=== PATIENT | female | born 1935 | race Caucasian/White ===

== ENCOUNTER 2016-09-10 13:14 | Emergency (ER) | payer SELFPAY ==
[~2016-09-10] VITALS: Ht 165.1 cm; Wt 63.5 kg
[~2016-09-10 13:14] MED LIST: ALPR1TAB7 PO; ATOR40TA PO; LOPE1TAB46 PO; LORA-259 PO
[2016-09-10] MEDS ORDERED: POTASSIUM (13:25)
[2016-09-10] MEDS ORDERED: ZOFRAN (13:25)
[2016-09-10] MEDS ORDERED: LIPITOR (13:25)
[2016-09-10] MEDS ORDERED: PHENERGAN (13:25)
--- NOTE | 2016-09-10 13:40 | NUR ---
PT IS IN ROOM #2B. DR CEDILLO EVALUATED THE PT.
--- NOTE | 2016-09-10 13:52 | NUR ---
PT WAS D/C TO HOME AFTER DR CEDILLO EVALUATION. D/C INSTRUCTIONS GIVEN TO THE PT.
[2016-09-10 13:54] VITALS: BP 140/75
== END 2016-09-10 14:15 | disposition home or self-care (01) ==
LOC: EDBD → MERGE 13:14 → ER 13:14
DX: K40.90 Unilateral inguinal hernia, without obstruction or gangrene, not specified as recurrent (principal)
CPT/HCPCS: A4663

== ENCOUNTER 2017-12-29 09:22 | Emergency (ER) | payer MEDICARE, BC ==
[~2017-12-29] VITALS: Ht 154.9 cm; Wt 68.0 kg
[~2017-12-29 09:22] MED LIST changes: +LIPITOR; +PHENERGAN; +POTASSIUM; +ZOFRAN
[2017-12-29] MEDS ORDERED: PANT40TA2 PO (09:37)
[2017-12-29] MEDS ORDERED: METO-295 PO (09:37)
--- NOTE | 2017-12-29 09:37 | NUR ---
82 years old female walking to er with inpatient care manager rn c/o abdominal pain denies nausea vomiting diarrhea.
[2017-12-29] MEDS ORDERED: ONDANSETRON 4 MG/2 ML VIAL ONE (09:53)
[2017-12-29] MEDS ORDERED: ONDANSETRON 4 MG/2 ML VIAL IM ONE (10:00)
== END 2017-12-29 10:15 | disposition home or self-care (01) ==
LOC: ER 09:22
DX: R10.13 Epigastric pain (principal); Z87.11 Personal history of peptic ulcer disease
CPT/HCPCS: 96372; 99283; J2405; A4663

== ENCOUNTER 2018-01-09 07:27 | Emergency (ER) | payer MEDICARE, BC ==
[~2018-01-09] VITALS: Ht 157.5 cm; Wt 59.0 kg
[~2018-01-09 07:27] MED LIST changes: +METO-295 PO; +PANT40TA2 PO; -POTASSIUM; +POTASSIUM PO; -ZOFRAN
[2018-01-09] MEDS ORDERED: IV NORMAL SALINE 1000 ML BAG IV ONE (07:45)
[2018-01-09] MEDS ORDERED: ONDANSETRON 4 MG/2 ML VIAL IV ONE (07:45)
[2018-01-09] MEDS ORDERED: ONDANSETRON 4 MG/2 ML VIAL ONE (07:51)
[2018-01-09 07:53] LABS: BASOPHILS # (AUTO) 0.1 K/uL (0.0-8.0); BASOPHILS % (AUTO) 0.8 % (0.0-2.0); EOSINOPHILS # (AUTO) 0.1 K/uL (0.0-0.7); EOSINOPHILS % (AUTO) 2.2 % (0.0-7.0); HEMATOCRIT 46.2 % (31.2-41.9); HEMOGLOBIN 15.7 g/dL (10.9-14.3); LYMPHOCYTES # (AUTO) 1.8 K/uL (20.0-40.0); LYMPHOCYTES % (AUTO) 27.2 % (20.5-51.5); MEAN CORPUSCULAR HEMOGLOBIN 29.7 uug (24.7-32.8); MEAN CORPUSCULAR HGB CONC 34 g/dL (32.3-35.6); MEAN CORPUSCULAR VOLUME 87.7 fL (75.5-95.3); MONOCYTES # (AUTO) 0.8 K/uL (2.0-10.0); MONOCYTES % (AUTO) 12.7 % (0.0-11.0); NEUTROPHILS # (AUTO) 3.7 K/uL (1.8-8.9); NEUTROPHILS % (AUTO) 57.1 % (38.5-71.5); PLATELET COUNT (AUTO) 246 K/uL (179-408); RED BLOOD CELL COUNT(AUTO) 5.27 MIL/uL (3.63-4.92); WHITE BLOOD COUNT (AUTO) 6.5 K/uL (3.8-11.8)
[2018-01-09] MEDS ORDERED: METOCLOPRAMIDE HCL 10 MG/2 ML VIAL ONE ×2 (07:53→09:29)
[2018-01-09] MEDS ORDERED: diphenhydrAMINE 50 MG/1 ML VIAL ONE ×2 (07:53→09:29)
[2018-01-09] MEDS ORDERED: diphenhydrAMINE 50 MG/1 ML VIAL IV ONE ×2 (08:00→09:45)
[2018-01-09] MEDS ORDERED: METOCLOPRAMIDE HCL 10 MG/2 ML VIAL IV ONE ×2 (08:00→09:45)
[2018-01-09 08:09] LABS: ALANINE AMINOTRANSFERASE 33 U/L (14-59); ALKALINE PHOSPHATASE 96 U/L (50-136); ASPARTATE AMINOTRANSFERASE 14 U/L (15-37); BILIRUBIN,DIRECT 0.2 mg/dL (0.0-0.2); BILIRUBIN,TOTAL 0.7 mg/dL (0.2-1.0); CARBON DIOXIDE 27 mmol/L (21-32); CHLORIDE 103 mmol/L (98-107); CREATININE 0.7 mg/dL (0.6-1.3); GLUCOSE 125 mg/dL (74-106); LIPASE 198 U/L (73-393); TOTAL PROTEIN, SERUM 7.2 g/dL (6.4-8.2); UREA NITROGEN, BLOOD 10 mg/dL (7-18)
[2018-01-09 08:12] LABS: POTASSIUM 2.6 mmol/L (3.5-5.1)
[2018-01-09] MEDS ORDERED: POTASSIUM BICARBONATE/CIT AC 25 MEQ TABLET.EFF PO ONE (08:15)
[2018-01-09] MEDS ORDERED: POTASSIUM CHLORIDE 50 ML IV SCH (08:15)
[2018-01-09] MEDS ORDERED: POTASSIUM BICARBONATE/CIT AC 25 MEQ TABLET.EFF ONE (08:37)
[2018-01-09] MEDS ORDERED: POTASSIUM CHLORIDE 50 ML ONE (08:38)
[2018-01-09] MEDS ORDERED: HYDR50TA3 PO (09:09)
[2018-01-09] MEDS ORDERED: SUCR1TAB PO (09:09)
--- NOTE | 2018-01-09 09:10 | NUR ---
MEDICATIONS RECONCILED WITH BOTH PATIENT AND CAREGIVER.
--- NOTE | 2018-01-09 09:21 | NUR ---
pt does not want to stay in hospital, says has a dog at home that has to take care of. pt is ax0x4, has been an rn, understands the concept of hypokalemia and the resulting problems. Patient does not wish to proceed with medical care recommended by ( gail ). Patient given information related to possible complications, up to and including , which could occur as a result of leaving the hospital at this time. Patient verbalizes understanding of risks involved due to leaving against medical advice. Patient has signed AMA form.pt nonfarm animal caretaker at bedside also involved in pt care is informed. pt nonfarm animal caretaker verifies that the pt is axox4, can mke her own sound disicions and is aware of her medical condition.
[2018-01-09 09:24] LABS: MAGNESIUM 1.9 mg/dL (1.8-2.4)
--- NOTE | 2018-01-09 10:00 | NUR ---
pt potasium finished. ptwalked out with the critical care registered nurse, pt walks in steady gait. pt denies any n/v.
== END 2018-01-09 10:03 | disposition left against medical advice (07) ==
LOC: ER 07:27
DX: E87.6 Hypokalemia (principal); R19.7 Diarrhea, unspecified; R11.2 Nausea with vomiting, unspecified
CPT/HCPCS: 36415; 71045; 80048; 80076; 83690; 83735; 83880; 84484; 85025; 85730; 93005; 96361; 96374; 96375; 96376; 99285; J1200 ×2; J2765 ×2; J3480; 70030-TC; A4663; J2405; J7030

== ENCOUNTER 2018-01-15 23:54 | Inpatient (IN) | payer MEDICARE, BC ==
[~2018-01-15] VITALS: Ht 165.1 cm; Wt 59.0 kg
[~2018-01-15 23:54] MED LIST changes: -ALPR1TAB7 PO; +HYDR50TA3 PO; -LIPITOR; -PHENERGAN; +SUCR1TAB PO
[2018-01-16] MEDS ORDERED: IV NORMAL SALINE 1000 ML BAG IV ONE (01:15)
[2018-01-16 01:50] LABS: BASOPHILS % (AUTO) 0.4 % (0.0-2.0); EOSINOPHILS % (AUTO) 0.1 % (0.0-7.0); HEMATOCRIT 43.8 % (31.2-41.9); HEMOGLOBIN 14.8 g/dL (10.9-14.3); LYMPHOCYTES # (AUTO) 1.2 K/uL (20.0-40.0); MEAN CORPUSCULAR HEMOGLOBIN 29.9 uug (24.7-32.8); MEAN CORPUSCULAR HGB CONC 34 g/dL (32.3-35.6); MEAN CORPUSCULAR VOLUME 88.7 fL (75.5-95.3); MONOCYTES # (AUTO) 1.4 K/uL (2.0-10.0); MONOCYTES % (AUTO) 12.6 % (0.0-11.0); NEUTROPHILS # (AUTO) 8.3 K/uL (1.8-8.9); NEUTROPHILS % (AUTO) 75.9 % (38.5-71.5); PLATELET COUNT (AUTO) 221 K/uL (179-408); RED BLOOD CELL COUNT(AUTO) 4.94 MIL/uL (3.63-4.92); WHITE BLOOD COUNT (AUTO) 10.9 K/uL (3.8-11.8)
[2018-01-16 02:01] LABS: CARBON DIOXIDE 29 mmol/L (21-32); CHLORIDE 103 mmol/L (98-107); CREATININE 1.1 mg/dL (0.6-1.3); GLUCOSE 117 mg/dL (74-106); POTASSIUM 3.1 mmol/L (3.5-5.1); UREA NITROGEN, BLOOD 17 mg/dL (7-18)
[2018-01-16 02:13] LABS: ALANINE AMINOTRANSFERASE 50 U/L (14-59); ALKALINE PHOSPHATASE 100 U/L (50-136); ASPARTATE AMINOTRANSFERASE 64 U/L (15-37); BILIRUBIN,DIRECT 0.2 mg/dL (0.0-0.2); BILIRUBIN,TOTAL 0.9 mg/dL (0.2-1.0); TOTAL PROTEIN, SERUM 7.3 g/dL (6.4-8.2)
[2018-01-16] MEDS ORDERED: POTASSIUM CHLORIDE 20 MEQ TAB.PRT.SR ONE (02:27)
[2018-01-16] MEDS ORDERED: LORAZEPAM 2 MG/1 ML VIAL ONE (02:28)
[2018-01-16] MEDS ORDERED: LORAZEPAM 2 MG/1 ML VIAL IV ONE (02:30)
[2018-01-16] MEDS ORDERED: POTASSIUM CHLORIDE 20 MEQ TAB.PRT.SR PO ONE (02:30)
[2018-01-16 02:40] LABS: *BILIRUBIN,URIN NEGATIVE (NEGATIVE); *BLOOD, URINE Trace-lysed (NEGATIVE); *CLARITY,URINE SLIGHTLY CLOUDY (CLEAR); *COLOR,URINE YELLOW (YELLOW); *KETONES,URINE TRACE (NEGATIVE); *PROTEIN,URINE TRACE (NEGATIVE); *UROBILINOGEN,URINE 0.2 E.U./dl (NORMAL); LEUKOCYTE ESTERASE ,URINE TRACE (NEGATIVE); NITRITE, URINE POSITIVE (NEGATIVE); PH,URINE 5.5 (5.0-8.0); UGLUCOSE NEGATIVE (NEGATIVE)
[2018-01-16 02:45] LABS: BACTERIA,URINE FEW /HPF (NONE SEEN); SQUAMOUS EPITHELIAL CELL,UR FEW /HPF (NONE SEEN); WBC,URINE 20-50 /HPF (0-3)
--- NOTE | 2018-01-16 03:05 | NUR ---
ADMITTED PATIENT IN MED SURG FLOOR UNDER THE CARE DR. HAIR, INVENTORY LIST DONE. PATIENT HAS MULTIPLE FALLS FROM HOME WITH MULTIPLE BRUISE ON R ARMS, L ARMS, R LEG AND R THIGH, L LEG AND L THIGH, AND UPPER AND LOWER EXTREMETIES, WITH R ARM WOUND WITH SCAB. AND R ELBOW WOUND.
--- NOTE | 2018-01-16 03:10 | NUR ---
Pt. admitted to M/S, under care of Dr. Jimenez Belongs List completed
[2018-01-16] MEDS ORDERED: CEFTRIAXONE 1 G in IV DEXTROSE 5% 50 ML IV STA (03:21)
[2018-01-16] MEDS ORDERED: CEFTRIAXONE 1 G VIAL ONE (03:21)
[2018-01-16] MEDS ORDERED: LORAZEPAM 2 MG/1 ML VIAL IV PRN (03:30)
[2018-01-16 04:41] VITALS: BP 137/63
[2018-01-16] MEDS: IV DEXTROSE 5% +20 MEQ KCL 1,000 ML IV PRN ×2 (05:56→16:10)
[2018-01-16] MEDS ORDERED: LORAZEPAM 1 MG TABLET PO PRN (07:45)
[2018-01-16] MEDS ORDERED: METOCLOPRAMIDE HCL 10 MG TABLET PO PRN (07:45)
[2018-01-16 07:53] LABS: CARBON DIOXIDE 31 mmol/L (21-32); CHLORIDE 103 mmol/L (98-107); CREATININE 0.9 mg/dL (0.6-1.3); GLUCOSE 105 mg/dL (74-106); UREA NITROGEN, BLOOD 15 mg/dL (7-18)
--- NOTE | 2018-01-16 08:16 | NUR ---
PATIENT IS COMPLAINING OF PAIN ON HER RIGHT SHOULDER BUT HAS NO PAIN MEDICATION ORDERED ALSO HER POTASSIUM LEVEL IS 3.[address] HAIR NOTIFIED HIM WITH NEW PAIN MEDICATION ORDER BUT STATED THAT PATIENT IVF HAS POTASSIUM AND SUCH NO NEW ORDER FOR SUPPLEMENTAL POTASSIUM AND NOTED.
[2018-01-16] MEDS: PANTOPRAZOLE SODIUM 40 MG TABLET.DR PO SCH (08:24)
[2018-01-16] MEDS: POTASSIUM CHLORIDE 20 MEQ TAB.PRT.SR PO SCH (08:24)
[2018-01-16] MEDS: HYDROCHLOROTHIAZIDE 25 MG TABLET PO SCH (08:26)
[2018-01-16] MEDS: MELOXICAM 7.5 MG TABLET PO SCH ×2 (09:04→17:28)
[2018-01-16] MEDS: Z GUARD REMEDY PASTE 57 GM TUBE TOP SCH ×2 (11:10→20:19)
[2018-01-16 11:21] VITALS: BP 111/54
[2018-01-16] MEDS: SUCRALFATE 1 G TABLET PO SCH ×3 (11:48→20:18)
--- NOTE | 2018-01-16 15:00 | NUR ---
RESTING IN BED STILL WANTED TO KNOW IF HER DOCTOR WILL BE HERE AND WHEN BUT IS COMPLIANT AND CALM AT THIS TIME.
[2018-01-16 15:12] VITALS: BP 95/56
--- NOTE | 2018-01-16 17:55 | NUR ---
IVF REMAINS IN PROGRESS ORDERED TO HER RIGHT FOREARM WITH NO S/S OF INFILTERATION ON SITE ALL NEEDS MET MADE COMFORTABLE WILL CONTINUE TO OBSERVE.
--- NOTE | 2018-01-16 18:33 | NUR ---
DR HAIR HERE TO SEE PATIENT WITH NO NEW ORDERS AT THIS TIME.
--- NOTE | 2018-01-16 18:56 | NUR ---
HAND WRITTEN ORDERS NOTED FROM DR HAIR AND CARRIED OUT.
[2018-01-16 19:19] VITALS: BP 95/52
[2018-01-16] MEDS ORDERED: ZOLPIDEM 5 MG TABLET PO PRN (19:45)
--- NOTE | 2018-01-16 19:53 | NUR ---
RECEIVED PATIENT IN BED ALERT ORIENTED, NO SOB NO CHEST PAIN, NOTED, KEPT CLEAN AND DRY, CALL LIGHT WITHIN REACH.
[2018-01-16] MEDS: ATORVASTATIN 40 MG TABLET PO SCH (20:18)
[2018-01-16] MEDS: MORPHINE SULFATE 2 MG/1 ML DISP.SYRIN IV PRN (20:26)
[2018-01-16] MEDS ORDERED: TEMAZEPAM 15 MG CAPSULE PO SCH (21:00)
[2018-01-17] MEDS: IV DEXTROSE 5% +20 MEQ KCL 1,000 ML IV PRN ×2 (02:35→14:04)
[2018-01-17 03:25] VITALS: BP 124/63
--- NOTE | 2018-01-17 05:27 | NUR ---
PATIENT SLEPT MOST OF THE NIGHT, NO SOB NO CHEST PAIN, CONT ON PAIN MANAGEMENT, KEPT CLEAN AND DRY, CALL LIGHT WITHIN REACH.
[2018-01-17] MEDS: PANTOPRAZOLE SODIUM 40 MG TABLET.DR PO SCH (06:08)
--- NOTE | 2018-01-17 06:57 | NUR ---
PATIENT R WRIST OLD IV SITE INFILTRATED, REMOVED IV KEPT ARMS ELEVATED WITH PILLOW, REINSERT ANOTHER ONE ON LEFT FOREARM. [id number] WELL.
[2018-01-17] MEDS: MELOXICAM 7.5 MG TABLET PO SCH ×2 (07:53→17:01)
[2018-01-17] MEDS: SUCRALFATE 1 G TABLET PO SCH ×4 (07:53→21:03)
[2018-01-17] MEDS: POTASSIUM CHLORIDE 20 MEQ TAB.PRT.SR PO SCH ×2 (08:03→16:14)
[2018-01-17] MEDS: HYDROCHLOROTHIAZIDE 25 MG TABLET PO SCH (08:03)
[2018-01-17] MEDS: Z GUARD REMEDY PASTE 57 GM TUBE TOP SCH ×2 (08:03→21:06)
[2018-01-17] MEDS: LEVOFLOXACIN 250 MG TABLET PO SCH (09:50)
[2018-01-17 11:01] VITALS: BP 115/51
[2018-01-17] MEDS: LOPERAMIDE HCL 2 MG CAPSULE PO PRN (12:41)
[2018-01-17 15:03] VITALS: BP 110/54
[2018-01-17] MEDS: LORAZEPAM 1 MG TABLET PO PRN (16:38)
[2018-01-17 19:27] VITALS: BP 101/63
--- NOTE | 2018-01-17 19:30 | NUR ---
received shift report from day shift nurse. patient stable, no signs of distress at this time. ivf running. high risk for falls. safety measures implemented, call light within reach. bed alarm on ,call light within reach of patient, bed in locked/low position, side rails upx 2.
[2018-01-17] MEDS: ATORVASTATIN 40 MG TABLET PO SCH (21:03)
[2018-01-18 03:33] VITALS: BP 131/75
[2018-01-18] MEDS: IV DEXTROSE 5% +20 MEQ KCL 1,000 ML IV PRN (04:06)
[2018-01-18] MEDS: SUCRALFATE 1 G TABLET PO SCH ×4 (06:36→20:07)
[2018-01-18] MEDS: PANTOPRAZOLE SODIUM 40 MG TABLET.DR PO SCH (06:36)
[2018-01-18] MEDS: LEVOFLOXACIN 250 MG TABLET PO SCH (06:36)
[2018-01-18] MEDS: LORAZEPAM 1 MG TABLET PO PRN (06:38)
[2018-01-18 06:50] LABS: CARBON DIOXIDE 32 mmol/L (21-32); CHLORIDE 100 mmol/L (98-107); CREATININE 0.8 mg/dL (0.6-1.3); GLUCOSE 107 mg/dL (74-106); UREA NITROGEN, BLOOD 10 mg/dL (7-18)
[2018-01-18] MEDS: POTASSIUM CHLORIDE 20 MEQ TAB.PRT.SR PO SCH ×2 (08:31→16:53)
[2018-01-18] MEDS: HYDROCHLOROTHIAZIDE 25 MG TABLET PO SCH (08:31)
[2018-01-18] MEDS: MELOXICAM 7.5 MG TABLET PO SCH (08:31)
[2018-01-18] MEDS: Z GUARD REMEDY PASTE 57 GM TUBE TOP SCH ×2 (08:34→20:07)
[2018-01-18 11:00] VITALS: BP 108/55
[2018-01-18] MEDS: LOPERAMIDE HCL 2 MG CAPSULE PO PRN (11:29)
[2018-01-18] MEDS: MORPHINE SULFATE 2 MG/1 ML DISP.SYRIN IV PRN (11:37)
--- NOTE | 2018-01-18 12:59 | NUR ---
Seen and evaluated by Dr Jimenez with new orders: 1.) Toradol 15 mg IVP Q6HRS 2.) Give NS instead of D-5W & add 40meqs at 100cc/hr 3.)Increase morphine to 2mg Q4HRS if toradol doesn't give more relief than Toradol 4.) BMP in am Noted and carried out
[2018-01-18] MEDS ORDERED: MORPHINE SULFATE 2 MG/1 ML DISP.SYRIN IV PRN (13:45)
[2018-01-18] MEDS ORDERED: POTASSIUM CHLORIDE 20 MEQ TAB.PRT.SR PO ONE (14:00)
[2018-01-18 15:00] VITALS: BP 107/58
[2018-01-18] MEDS: POTASSIUM CHLORIDE 40 MEQ in IV NS 1000 ML 1,000 ML IV PRN (15:13)
--- NOTE | 2018-01-18 15:30 | NUR ---
Pt has been compliant with medications and nursing care. Pt is comfortable in bed in a upright position watching television. No immediate s/sx of SOB, pain, distress or discomfort
[2018-01-18] MEDS: KETOROLAC TROMETHAMINE 15 MG INJ IVP SCH ×2 (17:27→23:11)
[2018-01-18 19:23] VITALS: BP 106/53
--- NOTE | 2018-01-18 19:30 | NUR ---
Patient stable upon assessment. No acute distress noted. Vital signs are in range. Pertinent assessment completed. A/Ox4 & able to make all needs known. Right wrist IV is running with NS with 40meq Kcl at 100cc/hr. No signs of infiltration noted. Patient complaining of left sided generalized pain s/p fall. Will administer pain med and reassess pain level. Skin intact. Noted with bruising all over body. Call light within reach. Will continue to monitor through shift.
[2018-01-18] MEDS: ATORVASTATIN 40 MG TABLET PO SCH (20:07)
[2018-01-19] MEDS: POTASSIUM CHLORIDE 40 MEQ in IV NS 1000 ML 1,000 ML IV PRN (02:28)
[2018-01-19 03:21] VITALS: BP 107/51
[2018-01-19] MEDS: LORAZEPAM 1 MG TABLET PO PRN (05:09)
--- NOTE | 2018-01-19 05:25 | NUR ---
Patient complaining of urinary retention. Performed Bladder scan with 715cc of urine in bladder. Performed straight in & out cath to remove urine. Will inform MD Jimenez & continue to monitor.
--- NOTE | 2018-01-19 06:00 | NUR ---
straight cath obtained 950cc urine.called dr gutiérrez regarding straight cath.pt was unable to urinate.
[2018-01-19] MEDS: LEVOFLOXACIN 250 MG TABLET PO SCH (06:18)
[2018-01-19] MEDS: KETOROLAC TROMETHAMINE 15 MG INJ IVP SCH ×2 (06:19→12:12)
[2018-01-19] MEDS: PANTOPRAZOLE SODIUM 40 MG TABLET.DR PO SCH (06:19)
[2018-01-19] MEDS: SUCRALFATE 1 G TABLET PO SCH ×3 (06:32→16:24)
--- NOTE | 2018-01-19 06:50 | NUR ---
Patient slept intermittently through the shift. No acute distress noted. All needs attended to promptly. Kept clean & dry, changed per diaper soiling. Informed MD Jimenez of urinary retention with NNO. All medications administered per MD order. Total of x3 BMs during the night. C/O left sided pain during the shift. Relieved by pain medications. Safety measures implemented. Call light within reach. Will endorse accordingly.
[2018-01-19] MEDS: LOPERAMIDE HCL 2 MG CAPSULE PO PRN (10:08)
[2018-01-19] MEDS: POTASSIUM CHLORIDE 20 MEQ TAB.PRT.SR PO SCH (10:09)
[2018-01-19] MEDS: HYDROCHLOROTHIAZIDE 25 MG TABLET PO SCH (10:10)
[2018-01-19] MEDS: Z GUARD REMEDY PASTE 57 GM TUBE TOP SCH (10:12)
[2018-01-19 11:19] VITALS: BP 127/65
--- NOTE | 2018-01-19 11:26 | NUR ---
01/19/2018 @ 5025 Received a call back from Anaya from [facility] to confirm that they still have a bed available for the patient today. There are written orders from Dr. Jimenez to have the patient transfer to [facility] today [[id number] [place], [address]]. Noted and carried out. Called the son but the number is unable to accept outside calls, informed the patient herself and she agrees with the discharge plans. Ashleigh RN and Julissa RN aware of discharge orders and discharge plans. Monique CHILD, CM
--- NOTE | 2018-01-19 14:00 | NUR ---
PATIENT STATED SHE WAS NOT ABLE TO URINATE. IMPLEMENTED BLADDER SCAN, AND SHOWED 338 ML WAS PRESENT. MD NOTIFIED. PER MD ORDER, STRAIGHT-CATHETERIZE PATIENT PRIOR TO DISCHARGE./
[2018-01-19 14:41] VITALS: BP 127/65
[2018-01-19 15:14] VITALS: BP 123/58
--- NOTE | 2018-01-19 16:57 | NUR ---
PATIENT WAS DISCHARGED AT 1640. PATIENT WAS ALERT AND ORIENTED X4. PATIENT IS IN STABLE CONDITION AND DENIES ANY PAIN/DISCOMFORT AT THIS TIME. PATIENT IS ABLE TO VERBALIZE UNDERSTANDING OF DISCHARGE AND FOLLOW UP ORDERS BY MD. PATIENT WAS DISCHARGED WITH EXIT CARE PACKAGE, ALONG WITH VALUABLES AND PERSONAL BELONGINGS. PATIENT IV WAS REMOVED AND IV BAND WAS REMOVED. PATIENT WAS DISCHARGED AND TRANSFERRED TO [facility] VIA AMBULANCE. FACILITY WAS CALLED AND REPORT WAS GIVEN MY RN, LEE ANN.
== END 2018-01-19 16:40 | DRG 690 ==
LOC: ER 23:58 → MED 01-16 02:55
PROVIDERS: ADMIT Family Medicine; ATTEND Family Medicine
DX: N39.0 Urinary tract infection, site not specified (principal); E87.6 Hypokalemia; E86.0 Dehydration; M19.90 Unspecified osteoarthritis, unspecified site; Z87.440 Personal history of urinary (tract) infections; F41.9 Anxiety disorder, unspecified; R29.6 Repeated falls; R53.83 Other fatigue; I25.2 Old myocardial infarction; Z79.899 Other long term (current) drug therapy; Z87.01 Personal history of pneumonia (recurrent); I10 Essential (primary) hypertension; K73.9 Chronic hepatitis, unspecified; K27.9 Peptic ulcer, site unspecified, unspecified as acute or chronic, without hemorrhage or perforation; F13.10 Sedative, hypnotic or anxiolytic abuse, uncomplicated
CPT/HCPCS: 36415; 70030-TC; 70450; 72170; 83605; 85025; 87040; 93005; 97110; 97116; 97165; 97530; A4663; C1758; G0378; J0696; J1885; J2060; J2270; J3480; J3490; J7030; J7060

== ENCOUNTER 2018-02-18 06:51 | Emergency (ER) | payer MEDICARE, BC ==
[~2018-02-18] VITALS: Ht 165.1 cm; Wt 61.2 kg
--- NOTE | 2018-02-18 07:02 | NUR ---
Pt. ambulated into ED w/ knapsack sprayer w/ c/o R shoulder pain 12/07 x 1 week, A/Ox4, denies DAVID/blurred vision/N/V/F/C, pt. has some slurred speech and moderate R side facial droop, Addendum: 02/18/18 at 0722 by KARINA The slurred speech and R sided facial droop are chronic conditions and not acute in nature
--- NOTE | 2018-02-18 07:17 | NUR ---
pt is in room #1b. dr Obrien evaluated the pt.
--- NOTE | 2018-02-18 07:59 | NUR ---
PT WAS D/C'd TO HOME AFTER DR BAIRD EVALUATION. D/C INSTRUCTIONS GIVEN TO THE PT AMD TO PT'S CAREGIVER. PT DENIES PAIN AT THIS TIME. NO S/S OF DISTRESS. GAIT IS STABLE.
[2018-02-18 08:02] VITALS: BP 121/71
[2018-02-22] MEDS ORDERED: OLAN5TAB3 PO (07:59)
[2018-02-22] MEDS ORDERED: MIRT15TA7 PO (07:59)
[2018-02-22] MEDS ORDERED: TEMA15CA PO (07:59)
[2018-02-22] MEDS ORDERED: ZOLP5TAB2 PO (07:59)
== END 2018-02-18 08:03 | disposition home or self-care (01) ==
LOC: ER 06:57
DX: M25.511 Pain in right shoulder (principal); Z79.899 Other long term (current) drug therapy
CPT/HCPCS: 73030; A4663

== ENCOUNTER 2018-02-22 07:15 | Emergency (ER) | END 2018-02-22 08:46 | disposition home or self-care (01) | DX: E87.6 Hypokalemia (principal); E46 Unspecified protein-calorie malnutrition; R55 Syncope and collapse; F32.9 Major depressive disorder, single episode, unspecified; F41.9 Anxiety disorder, unspecified; F13.10 Sedative, hypnotic or anxiolytic abuse, uncomplicated ==

== ENCOUNTER 2018-06-17 17:21 | Emergency (ER) | payer MEDICARE, BC ==
[~2018-06-17] VITALS: Ht 165.1 cm; Wt 55.8 kg
[~2018-06-17 17:21] MED LIST changes: +MIRT15TA7 PO; +OLAN5TAB3 PO; +TEMA15CA PO; +ZOLP5TAB2 PO
[2018-06-17] MEDS ORDERED: FURO20TA90 (17:35)
--- NOTE | 2018-06-17 17:35 | NUR ---
1st contact with patient- patient is AOx3, refusing to change to hospital gown, NAD, patient is c/o chronic nausea, denies chest pains or no shortness of breath, calm & breathing easily
--- NOTE | 2018-06-17 17:36 | NUR ---
PT DOES NOT REMEMBER HER HOME MEDICATION. WE CAN NOT VERIFY WHAT MEDICATION SHE IS TAKING NOW EVERY DAY.
[2018-06-17 18:20] LABS: BASOPHILS # (AUTO) 0.1 K/uL (0.0-8.0); BASOPHILS % (AUTO) 0.9 % (0.0-2.0); EOSINOPHILS # (AUTO) 0.2 K/uL (0.0-0.7); EOSINOPHILS % (AUTO) 2.8 % (0.0-7.0); HEMATOCRIT 44.1 % (31.2-41.9); HEMOGLOBIN 14.6 g/dL (10.9-14.3); LYMPHOCYTES # (AUTO) 2.4 K/uL (20.0-40.0); LYMPHOCYTES % (AUTO) 31.6 % (20.5-51.5); MEAN CORPUSCULAR HEMOGLOBIN 27.8 uug (24.7-32.8); MEAN CORPUSCULAR HGB CONC 33 g/dL (32.3-35.6); MEAN CORPUSCULAR VOLUME 83.6 fL (75.5-95.3); MONOCYTES # (AUTO) 0.9 K/uL (2.0-10.0); MONOCYTES % (AUTO) 12.3 % (0.0-11.0); NEUTROPHILS % (AUTO) 52.4 % (38.5-71.5); PLATELET COUNT (AUTO) 240 K/uL (179-408); RED BLOOD CELL COUNT(AUTO) 5.27 MIL/uL (3.63-4.92); WHITE BLOOD COUNT (AUTO) 7.7 K/uL (3.8-11.8)
[2018-06-17] MEDS ORDERED: IV 0.9% SODIUM CHLORID+ 20 KCL 1,000 ML IV ONE (18:23)
[2018-06-17] MEDS ORDERED: METOCLOPRAMIDE HCL 10 MG/2 ML VIAL IV ONE ×2 (18:30→19:15)
[2018-06-17] MEDS ORDERED: METOCLOPRAMIDE HCL 10 MG/2 ML VIAL ONE ×2 (18:34→19:07)
[2018-06-17 18:35] LABS: ALANINE AMINOTRANSFERASE 32 U/L (14-59); ALKALINE PHOSPHATASE 100 U/L (50-136); ASPARTATE AMINOTRANSFERASE 22 U/L (15-37); BILIRUBIN,DIRECT 0.2 mg/dL (0.0-0.2); BILIRUBIN,TOTAL 0.6 mg/dL (0.2-1.0); CARBON DIOXIDE 27 mmol/L (21-32); CHLORIDE 101 mmol/L (98-107); CREATININE 0.9 mg/dL (0.6-1.3); GLUCOSE 102 mg/dL (74-106); LIPASE 120 U/L (73-393); TOTAL PROTEIN, SERUM 7.5 g/dL (6.4-8.2); UREA NITROGEN, BLOOD 13 mg/dL (7-18)
[2018-06-17] MEDS ORDERED: IV 0.9% SODIUM CHLORID+ 20 KCL 1,000 ML ONE (18:35)
[2018-06-17 18:43] LABS: POTASSIUM 2.8 mmol/L (3.5-5.1)
[2018-06-17] MEDS ORDERED: POTASSIUM CHLORIDE 20 MEQ TAB.PRT.SR PO ONE (18:45)
[2018-06-17] MEDS ORDERED: POTASSIUM CHLORIDE 50 ML IV ONE (18:45)
[2018-06-17] MEDS ORDERED: POTASSIUM CHLORIDE 50 ML ONE (18:55)
[2018-06-17] MEDS ORDERED: POTASSIUM CHLORIDE 20 MEQ TAB.PRT.SR ONE (18:55)
[2018-06-17] MEDS ORDERED: ONDANSETRON 4 MG/2 ML VIAL ONE (19:07)
--- NOTE | 2018-06-17 19:13 | NUR ---
hands off report given to RN Gutierrez
[2018-06-17] MEDS ORDERED: ONDANSETRON IV *ER 4 MG/2 ML VIAL IV ONE (19:15)
--- NOTE | 2018-06-17 20:00 | NUR ---
KCl IV stop time 2000
--- NOTE | 2018-06-17 20:20 | NUR ---
Called for Taxi, spoke w/ sand operator [id number], ETA 15 min.
--- NOTE | 2018-06-17 20:27 | NUR ---
Patient discharged to home in stable conditon. Written and verbal after care instructions given. Patient verbalizes understanding of instructions. Pt. d/c per MD orders, d/c papers signed, all belongings w/ pt., taken off unit and placed in lobby awaiting taxi, ID band/IV removed, NAD,
== END 2018-06-17 20:31 | disposition home or self-care (01) ==
LOC: ER 17:27
DX: R11.0 Nausea (principal); R19.7 Diarrhea, unspecified; E87.6 Hypokalemia; Z79.899 Other long term (current) drug therapy
CPT/HCPCS: 36415; 80048; 80076; 83690; 84484; 85025; 93005; 96365; 96375; 96376; 99284; J2405; J2765 ×2; J3480; 70030-TC; A4663

== ENCOUNTER 2018-06-18 07:40 | Emergency (ER) | payer MEDICARE, BC ==
[~2018-06-18] VITALS: Ht 165.1 cm; Wt 55.8 kg
[~2018-06-18 07:40] MED LIST changes: +FURO20TA90
[2018-06-18] MEDS ORDERED: METOCLOPRAMIDE HCL 10 MG/2 ML VIAL IV ONE ×2 (08:15→09:30)
[2018-06-18] MEDS ORDERED: IV NORMAL SALINE 1000 ML BAG IV ONE (08:15)
--- NOTE | 2018-06-18 08:15 | NUR ---
RECEVED A 67 YR OLD FEMALE PT C/O NAUSEA SINCE YESTERDAY, UPON ARRIVAL V/S TAKEN. IV INSERTED ON RT FOREARM G20, LABS TAKEN AND NS IV HOOKED UP.
[2018-06-18] MEDS ORDERED: LORAZEPAM 2 MG/1 ML VIAL IV ONE (08:45)
[2018-06-18] MEDS ORDERED: METOCLOPRAMIDE HCL 10 MG/2 ML VIAL ONE ×2 (08:46→09:27)
[2018-06-18] MEDS ORDERED: LORAZEPAM 2 MG/1 ML VIAL ONE (08:47)
[2018-06-18 09:07] LABS: BASOPHILS # (AUTO) 0.1 K/uL (0.0-8.0); BASOPHILS % (AUTO) 0.9 % (0.0-2.0); EOSINOPHILS # (AUTO) 0.2 K/uL (0.0-0.7); EOSINOPHILS % (AUTO) 2.8 % (0.0-7.0); HEMATOCRIT 45.6 % (31.2-41.9); LYMPHOCYTES # (AUTO) 1.6 K/uL (20.0-40.0); LYMPHOCYTES % (AUTO) 27.1 % (20.5-51.5); MEAN CORPUSCULAR HEMOGLOBIN 27.7 uug (24.7-32.8); MEAN CORPUSCULAR HGB CONC 33 g/dL (32.3-35.6); MEAN CORPUSCULAR VOLUME 84.3 fL (75.5-95.3); MONOCYTES # (AUTO) 0.7 K/uL (2.0-10.0); MONOCYTES % (AUTO) 11.6 % (0.0-11.0); NEUTROPHILS # (AUTO) 3.5 K/uL (1.8-8.9); NEUTROPHILS % (AUTO) 57.6 % (38.5-71.5); PLATELET COUNT (AUTO) 275 K/uL (179-408); RED BLOOD CELL COUNT(AUTO) 5.41 MIL/uL (3.63-4.92); WHITE BLOOD COUNT (AUTO) 6.1 K/uL (3.8-11.8)
[2018-06-18 09:08] LABS: *BILIRUBIN,URIN NEGATIVE (NEGATIVE); *BLOOD, URINE NEGATIVE (NEGATIVE); *CLARITY,URINE CLEAR (CLEAR); *COLOR,URINE LIGHT YELLOW (YELLOW); *KETONES,URINE NEGATIVE (NEGATIVE); *UROBILINOGEN,URINE 0.2 E.U./dl (NORMAL); LEUKOCYTE ESTERASE ,URINE TRACE (NEGATIVE); NITRITE, URINE NEGATIVE (NEGATIVE); PH,URINE 5.5 (5.0-8.0); UGLUCOSE NEGATIVE (NEGATIVE)
[2018-06-18 09:13] LABS: CARBON DIOXIDE 27 mmol/L (21-32); CHLORIDE 102 mmol/L (98-107); CREATININE 0.9 mg/dL (0.6-1.3); GLUCOSE 100 mg/dL (74-106); POTASSIUM 3.2 mmol/L (3.5-5.1); UREA NITROGEN, BLOOD 10 mg/dL (7-18)
[2018-06-18 09:18] LABS: BACTERIA,URINE FEW /HPF (NONE SEEN); RBC,URINE 0-3 /HPF (0-3); SQUAMOUS EPITHELIAL CELL,UR FEW /HPF (NONE SEEN)
[2018-06-18 09:20] LABS: ALANINE AMINOTRANSFERASE 31 U/L (14-59); ALKALINE PHOSPHATASE 108 U/L (50-136); ASPARTATE AMINOTRANSFERASE 21 U/L (15-37); BILIRUBIN,DIRECT 0.2 mg/dL (0.0-0.2); BILIRUBIN,TOTAL 0.9 mg/dL (0.2-1.0); LIPASE 115 U/L (73-393); TOTAL PROTEIN, SERUM 7.8 g/dL (6.4-8.2)
[2018-06-18] MEDS ORDERED: POTASSIUM CHLORIDE 20 MEQ TAB.PRT.SR ONE (09:27)
[2018-06-18] MEDS ORDERED: POTASSIUM CHLORIDE 20 MEQ TAB.PRT.SR PO ONE (09:30)
--- NOTE | 2018-06-18 10:12 | NUR ---
PATIENT READY FOR DISCHARGE, DISCHARGE INSTRUCTIONS GIVEN, IV STOPPED AND REMOVED, UPON PATIENT REQUEST RUI WAS CALLED TO TKE HER HOME.
== END 2018-06-18 10:26 | disposition home or self-care (01) ==
LOC: ER 07:40
DX: R11.0 Nausea (principal); E87.6 Hypokalemia; R19.7 Diarrhea, unspecified; Z79.899 Other long term (current) drug therapy
CPT/HCPCS: 36415; 80048; 80076; 81001; 83690; 85025; 96361; 96374; 96375; 96376; 99283; J2060; J2765 ×2; A4663; J7030

== ENCOUNTER 2018-06-28 06:32 | Emergency (ER) | payer MEDICARE, BC ==
[~2018-06-28] VITALS: Ht 165.1 cm; Wt 53.5 kg
--- NOTE | 2018-06-28 06:44 | NUR ---
Dr. Jenkins at bedside for MSE.
[2018-06-28] MEDS ORDERED: ONDANSETRON 4 MG/2 ML VIAL ONE (06:55)
[2018-06-28] MEDS ORDERED: ALBUTEROL SULFATE 2.5 MG/3 ML NEBU NEB ONE (07:00)
[2018-06-28] MEDS ORDERED: IV NORMAL SALINE 500 ML BAG IV ONE (07:00)
[2018-06-28] MEDS ORDERED: ONDANSETRON 4 MG/2 ML VIAL IV ONE (07:00)
[2018-06-28] MEDS ORDERED: PROC-11 PO (07:05)
[2018-06-28] MEDS ORDERED: FURO-152 PO (07:05)
--- NOTE | 2018-06-28 07:08 | NUR ---
Report given to Serena joshi.
[2018-06-28] MEDS ORDERED: ALBUTEROL SULFATE 2.5 MG/3 ML NEBU ONE (07:11)
[2018-06-28 07:14] LABS: BASOPHILS % (AUTO) 0.9 % (0.0-2.0); EOSINOPHILS % (AUTO) 0.3 % (0.0-7.0); HEMATOCRIT 46.6 % (31.2-41.9); HEMOGLOBIN 15.1 g/dL (10.9-14.3); LYMPHOCYTES # (AUTO) 1.8 K/uL (20.0-40.0); LYMPHOCYTES % (AUTO) 40.9 % (20.5-51.5); MEAN CORPUSCULAR HEMOGLOBIN 27.3 uug (24.7-32.8); MEAN CORPUSCULAR HGB CONC 32 g/dL (32.3-35.6); MEAN CORPUSCULAR VOLUME 84.6 fL (75.5-95.3); MONOCYTES # (AUTO) 0.8 K/uL (2.0-10.0); MONOCYTES % (AUTO) 17.6 % (0.0-11.0); NEUTROPHILS # (AUTO) 1.8 K/uL (1.8-8.9); NEUTROPHILS % (AUTO) 40.3 % (38.5-71.5); PLATELET COUNT (AUTO) 201 K/uL (179-408); RED BLOOD CELL COUNT(AUTO) 5.51 MIL/uL (3.63-4.92); WHITE BLOOD COUNT (AUTO) 4.5 K/uL (3.8-11.8)
[2018-06-28 07:21] LABS: CARBON DIOXIDE 26 mmol/L (21-32); CHLORIDE 98 mmol/L (98-107); CREATININE 0.9 mg/dL (0.6-1.3); GLUCOSE 96 mg/dL (74-106); POTASSIUM 3.1 mmol/L (3.5-5.1); UREA NITROGEN, BLOOD 9 mg/dL (7-18)
[2018-06-28 07:34] LABS: ALANINE AMINOTRANSFERASE 56 U/L (14-59); ALKALINE PHOSPHATASE 102 U/L (50-136); ASPARTATE AMINOTRANSFERASE 56 U/L (15-37); BILIRUBIN,DIRECT 0.2 mg/dL (0.0-0.2); BILIRUBIN,TOTAL 0.5 mg/dL (0.2-1.0); TOTAL PROTEIN, SERUM 7.5 g/dL (6.4-8.2)
[2018-06-28 07:44] LABS: LYMPHOCYTES % (MANUAL) 40 % (20-40); MONOCYTES % (MANUAL) 17 % (2-10); NEUTROPHILS % (MANUAL) 43 % (42-75)
[2018-06-28] MEDS ORDERED: PROCHLORPERAZINE EDISYLATE 10 MG/2 ML VIAL IV ONE (08:00)
[2018-06-28] MEDS ORDERED: POTASSIUM CHLORIDE 20 MEQ TAB.PRT.SR PO ONE (08:00)
[2018-06-28] MEDS ORDERED: POTASSIUM CHLORIDE 20 MEQ TAB.PRT.SR ONE (08:05)
[2018-06-28] MEDS ORDERED: PROCHLORPERAZINE EDISYLATE 10 MG/2 ML VIAL ONE (08:05)
--- NOTE | 2018-06-28 08:20 | NUR ---
Patient went to the bathroom & forgot to provide urine sample even after repeated reminders to give urine sample.
--- NOTE | 2018-06-28 08:22 | NUR ---
Patient says that she wants to go home, MD notified.
--- NOTE | 2018-06-28 08:30 | NUR ---
Patient says that she feels so much better. IV removed. Catheter intact and site benign. Pressure and 4x4 gauze applied to site. No bleeding noted. Patient discharged to home in stable conditon. Written and verbal after care instructions given to patient and private caregiver. Patient & supervisor machine workers verbalized understanding of instructions. No vomiting seen while in ER.
== END 2018-06-28 08:33 | disposition home or self-care (01) ==
LOC: ER 06:35
DX: B34.9 Viral infection, unspecified (principal); R11.2 Nausea with vomiting, unspecified; E87.6 Hypokalemia; Z79.899 Other long term (current) drug therapy
CPT/HCPCS: 36415; 71045; 80048; 80076; 83605; 83880; 84484; 85025; 85730; 87040 ×2; 87400; 93005; 94640; 96374; 96375; 99284; J0780; J2405; 70030-TC; A4663; J7040

== ENCOUNTER 2018-07-02 14:28 | Emergency (ER) | payer MEDICARE, BC ==
[~2018-07-02] VITALS: Ht 152.4 cm; Wt 52.2 kg
[~2018-07-02 14:28] MED LIST changes: +FURO-152 PO; +PROC-11 PO
--- NOTE | 2018-07-02 14:42 | NUR ---
DR GRIMES AT THE BEDSIDE FOR MSE.
[2018-07-02] MEDS ORDERED: IPRATROPIUM BROMIDE 0.5 MG/2.5 ML NEBU NEB ONE (14:45)
[2018-07-02] MEDS ORDERED: ALBUTEROL SULFATE 2.5 MG/3 ML NEBU NEB ONE (14:45)
[2018-07-02] MEDS ORDERED: ALBUTEROL SULFATE 2.5 MG/3 ML NEBU ONE (14:49)
[2018-07-02] MEDS ORDERED: IPRATROPIUM BROMIDE 0.5 MG/2.5 ML NEBU ONE (14:49)
[2018-07-02] MEDS ORDERED: IV NORMAL SALINE 1000 ML BAG IV ONE (15:00)
[2018-07-02 15:15] LABS: CARBON DIOXIDE 25 mmol/L (21-32); CHLORIDE 102 mmol/L (98-107); CREATININE 0.7 mg/dL (0.6-1.3); GLUCOSE 98 mg/dL (74-106); UREA NITROGEN, BLOOD 9 mg/dL (7-18)
[2018-07-02 15:19] LABS: POTASSIUM 2.8 mmol/L (3.5-5.1)
[2018-07-02] MEDS ORDERED: POTASSIUM CHLORIDE 20 MEQ TAB.PRT.SR ONE (15:28)
[2018-07-02] MEDS ORDERED: POTASSIUM CHLORIDE 20 MEQ TAB.PRT.SR PO ONE (15:30)
[2018-07-02 16:27] VITALS: BP 132/79
--- NOTE | 2018-07-02 16:27 | NUR ---
IV removed. Catheter intact and site benign. Pressure and 4x4 gauze applied to site. No bleeding noted.
--- NOTE | 2018-07-02 16:30 | NUR ---
Patient discharged to home in stable conditon. Written and verbal after care instructions given. Patient verbalizes understanding of instructions.
== END 2018-07-02 16:30 | disposition home or self-care (01) ==
LOC: ER 14:28
DX: E87.6 Hypokalemia (principal); R06.02 Shortness of breath; R53.1 Weakness; Z79.899 Other long term (current) drug therapy
CPT/HCPCS: 36415; A4663; J3590; J7030

== ENCOUNTER 2018-07-24 09:41 | Emergency (ER) | payer MEDICARE, BC ==
[~2018-07-24] VITALS: Ht 152.4 cm; Wt 52.2 kg
[~2018-07-24 09:41] MED LIST changes: -ATOR40TA PO; -FURO20TA90; -HYDR50TA3 PO; -METO-295 PO; -MIRT15TA7 PO; -OLAN5TAB3 PO; -PANT40TA2 PO; -SUCR1TAB PO; -TEMA15CA PO
[2018-07-24] MEDS ORDERED: BUPR150T5 PO (09:51)
[2018-07-24] MEDS ORDERED: BUPR100T5 PO (09:51)
--- NOTE | 2018-07-24 09:59 | NUR ---
PT IS IN ROOM #2A. DR GRIMES EVALUATED THE PT.
[2018-07-24] MEDS: ASPIRIN 325 MG TABLET PO ONE (10:31)
[2018-07-24] MEDS: IV NORMAL SALINE 500 ML BAG IV ONE (10:31)
[2018-07-24] MEDS: NITROGLYCERIN 0.4 MG/TAB BOTTLE SL ONE (10:32)
[2018-07-24] MEDS ORDERED: ASPIRIN 325 MG TABLET ONE (10:33)
[2018-07-24 10:34] LABS: BASOPHILS # (AUTO) 0.1 K/uL (0.0-8.0); BASOPHILS % (AUTO) 0.8 % (0.0-2.0); EOSINOPHILS # (AUTO) 0.2 K/uL (0.0-0.7); EOSINOPHILS % (AUTO) 3.7 % (0.0-7.0); HEMATOCRIT 42.2 % (31.2-41.9); HEMOGLOBIN 13.8 g/dL (10.9-14.3); LYMPHOCYTES # (AUTO) 2.2 K/uL (20.0-40.0); LYMPHOCYTES % (AUTO) 32.3 % (20.5-51.5); MEAN CORPUSCULAR HEMOGLOBIN 27.4 uug (24.7-32.8); MEAN CORPUSCULAR HGB CONC 33 g/dL (32.3-35.6); MEAN CORPUSCULAR VOLUME 83.7 fL (75.5-95.3); MONOCYTES # (AUTO) 0.9 K/uL (2.0-10.0); MONOCYTES % (AUTO) 13.3 % (0.0-11.0); NEUTROPHILS # (AUTO) 3.4 K/uL (1.8-8.9); NEUTROPHILS % (AUTO) 49.9 % (38.5-71.5); PLATELET COUNT (AUTO) 272 K/uL (179-408); RED BLOOD CELL COUNT(AUTO) 5.03 MIL/uL (3.63-4.92); WHITE BLOOD COUNT (AUTO) 6.8 K/uL (3.8-11.8)
[2018-07-24] MEDS ORDERED: NITROGLYCERIN 0.4 MG/TAB BOTTLE SL ONE (10:34)
[2018-07-24 10:38] LABS: CARBON DIOXIDE 32 mmol/L (21-32); CHLORIDE 95 mmol/L (98-107); GLUCOSE 120 mg/dL (74-106); POTASSIUM 3.7 mmol/L (3.5-5.1); UREA NITROGEN, BLOOD 16 mg/dL (7-18)
[2018-07-24 10:53] LABS: ALANINE AMINOTRANSFERASE 40 U/L (14-59); ALKALINE PHOSPHATASE 113 U/L (50-136); ASPARTATE AMINOTRANSFERASE 31 U/L (15-37); BILIRUBIN,DIRECT 0.2 mg/dL (0.0-0.2); BILIRUBIN,TOTAL 0.9 mg/dL (0.2-1.0); TOTAL PROTEIN, SERUM 7.9 g/dL (6.4-8.2)
--- NOTE | 2018-07-24 11:14 | NUR ---
PT WAS D/C'd TO HOME. D/C INSTRUCTIONS GIVEN TO THE PT. GAIT IS STABLE. PT DENIES PAIN. NO SOB. NO N/V.
[2018-07-24 11:16] VITALS: BP 138/73
== END 2018-07-24 11:17 | disposition home or self-care (01) ==
LOC: ER 09:41
DX: R07.89 Other chest pain (principal); R11.0 Nausea; Z79.899 Other long term (current) drug therapy
CPT/HCPCS: 36415; 70030-TC; 71045; 85025; 85730; 93005; A4663; J7040

== ENCOUNTER 2018-08-15 06:19 | Inpatient (IN) | payer MEDICARE, BC ==
[~2018-08-15] VITALS: Ht 165.1 cm; Wt 49.4 kg
[~2018-08-15 06:19] MED LIST changes: +BUPR100T5 PO; +BUPR150T5 PO
[2018-08-15 06:56] LABS: BASOPHILS # (AUTO) 0.1 K/uL (0.0-8.0); BASOPHILS % (AUTO) 0.6 % (0.0-2.0); EOSINOPHILS # (AUTO) 0.1 K/uL (0.0-0.7); EOSINOPHILS % (AUTO) 1.6 % (0.0-7.0); HEMATOCRIT 48.2 % (31.2-41.9); HEMOGLOBIN 15.6 g/dL (10.9-14.3); LYMPHOCYTES # (AUTO) 1.9 K/uL (20.0-40.0); LYMPHOCYTES % (AUTO) 21.2 % (20.5-51.5); MEAN CORPUSCULAR HEMOGLOBIN 27.9 uug (24.7-32.8); MEAN CORPUSCULAR HGB CONC 33 g/dL (32.3-35.6); MEAN CORPUSCULAR VOLUME 85.8 fL (75.5-95.3); MONOCYTES # (AUTO) 0.8 K/uL (2.0-10.0); NEUTROPHILS # (AUTO) 6.1 K/uL (1.8-8.9); NEUTROPHILS % (AUTO) 67.6 % (38.5-71.5); PLATELET COUNT (AUTO) 243 K/uL (179-408); RED BLOOD CELL COUNT(AUTO) 5.62 MIL/uL (3.63-4.92)
[2018-08-15 07:06] LABS: ALANINE AMINOTRANSFERASE 25 U/L (14-59); ALKALINE PHOSPHATASE 107 U/L (50-136); ASPARTATE AMINOTRANSFERASE 15 U/L (15-37); BILIRUBIN,DIRECT 0.2 mg/dL (0.0-0.2); BILIRUBIN,TOTAL 0.8 mg/dL (0.2-1.0); CARBON DIOXIDE 25 mmol/L (21-32); CHLORIDE 104 mmol/L (98-107); CREATININE 0.8 mg/dL (0.6-1.3); GLUCOSE 114 mg/dL (74-106); TOTAL PROTEIN, SERUM 7.4 g/dL (6.4-8.2); UREA NITROGEN, BLOOD 6 mg/dL (7-18)
[2018-08-15 07:08] LABS: POTASSIUM 2.8 mmol/L (3.5-5.1)
[2018-08-15] MEDS ORDERED: POTASSIUM CHLORIDE 20 MEQ TAB.PRT.SR PO ONE (07:15)
[2018-08-15] MEDS ORDERED: POTASSIUM CHLORIDE 20 MEQ TAB.PRT.SR ONE (07:20)
[2018-08-15] MEDS ORDERED: MAGNESIUM SULFATE/D5W 100 ML ONE (07:28)
[2018-08-15] MEDS ORDERED: LORAZEPAM 0.5 MG TABLET ONE (07:28)
[2018-08-15] MEDS ORDERED: LORAZEPAM 0.5 MG TABLET PO ONE (07:30)
[2018-08-15 07:34] LABS: PHOSPHOROUS 3.1 mg/dL (2.5-4.9)
[2018-08-15] MEDS: MAGNESIUM SULFATE/D5W 100 ML IV SCH ×2 (07:38→07:44)
[2018-08-15 08:50] VITALS: BP 165/79
[2018-08-15] MEDS ORDERED: IV D5 1/2 NS 1000 ML 1,000 ML IV PRN (09:00)
[2018-08-15 11:01] VITALS: BP 143/73
[2018-08-15] MEDS: PROMETHAZINE HCL 25 MG TABLET PO PRN ×2 (11:11→16:16)
[2018-08-15] MEDS: ACETAMINOPHEN 325 MG TABLET PO PRN ×2 (12:23→20:18)
[2018-08-15] MEDS ORDERED: POTA20TA83 PO (14:49)
[2018-08-15] MEDS ORDERED: HOME MED MISCELLANEOUS PO PRN (15:15)
[2018-08-15 15:40] VITALS: BP 130/67
[2018-08-15] MEDS: POTASSIUM CHLORIDE 20 MEQ TAB.PRT.SR PO SCH (16:08)
[2018-08-15] MEDS: buPROPion SR 100 MG TABLET.SA PO SCH (16:08)
[2018-08-15] MEDS ORDERED: Z GUARD REMEDY PASTE 57 GM TUBE TOP PRN (16:15)
[2018-08-15] MEDS ORDERED: LOPERAMIDE HCL 2 MG CAPSULE PO PRN (16:30)
[2018-08-15] MEDS: POTASSIUM CHLORIDE IV PRN (17:59)
[2018-08-15] MEDS: D5 IV PRN (17:59)
[2018-08-15] MEDS: 1/2 NS IV PRN (17:59)
[2018-08-15] MEDS: Z GUARD REMEDY PASTE 57 GM TUBE TOP SCH (20:18)
[2018-08-15 20:59] VITALS: BP 118/58
[2018-08-16] MEDS: ZOLPIDEM 5 MG TABLET PO PRN ×2 (01:58→22:22)
[2018-08-16] MEDS: PROCHLORPERAZINE MALEATE 10 MG TABLET PO PRN ×2 (02:07→20:32)
[2018-08-16] MEDS: D5 IV PRN ×2 (05:30→21:18)
[2018-08-16] MEDS: 1/2 NS IV PRN ×2 (05:30→21:18)
[2018-08-16] MEDS: POTASSIUM CHLORIDE IV PRN ×2 (05:30→21:18)
[2018-08-16 06:10] VITALS: BP 115/67
[2018-08-16 06:40] LABS: CARBON DIOXIDE 23 mmol/L (21-32); CHLORIDE 109 mmol/L (98-107); CREATININE 0.7 mg/dL (0.6-1.3); GLUCOSE 102 mg/dL (74-106); POTASSIUM 3.9 mmol/L (3.5-5.1); UREA NITROGEN, BLOOD 7 mg/dL (7-18)
[2018-08-16 08:10] LABS: BASOPHILS # (AUTO) 0.1 K/uL (0.0-8.0); BASOPHILS % (AUTO) 0.8 % (0.0-2.0); EOSINOPHILS # (AUTO) 0.4 K/uL (0.0-0.7); EOSINOPHILS % (AUTO) 4.7 % (0.0-7.0); HEMATOCRIT 44.3 % (31.2-41.9); HEMOGLOBIN 14.4 g/dL (10.9-14.3); LYMPHOCYTES # (AUTO) 2.6 K/uL (20.0-40.0); LYMPHOCYTES % (AUTO) 33.3 % (20.5-51.5); MEAN CORPUSCULAR HEMOGLOBIN 27.9 uug (24.7-32.8); MEAN CORPUSCULAR HGB CONC 33 g/dL (32.3-35.6); MEAN CORPUSCULAR VOLUME 85.8 fL (75.5-95.3); MONOCYTES # (AUTO) 0.9 K/uL (2.0-10.0); MONOCYTES % (AUTO) 11.7 % (0.0-11.0); NEUTROPHILS # (AUTO) 3.8 K/uL (1.8-8.9); NEUTROPHILS % (AUTO) 49.5 % (38.5-71.5); PLATELET COUNT (AUTO) 202 K/uL (179-408); RED BLOOD CELL COUNT(AUTO) 5.16 MIL/uL (3.63-4.92); WHITE BLOOD COUNT (AUTO) 7.8 K/uL (3.8-11.8)
[2018-08-16] MEDS: POTASSIUM CHLORIDE 20 MEQ TAB.PRT.SR PO SCH ×2 (09:19→17:12)
[2018-08-16] MEDS: buPROPion SR 100 MG TABLET.SA PO SCH (09:19)
[2018-08-16] MEDS: CHOLESTYRAMINE/ASPARTAME 4 G/PKT PACKET PO SCH (09:26)
[2018-08-16] MEDS: Z GUARD REMEDY PASTE 57 GM TUBE TOP SCH ×2 (09:26→20:33)
[2018-08-16 11:52] VITALS: BP 134/68
[2018-08-16] MEDS: ACETAMINOPHEN 325 MG TABLET PO PRN (13:54)
[2018-08-16 16:20] VITALS: BP 127/62
[2018-08-16] MEDS: CLOTRIMAZOLE 1% CREAM 30 GM TUBE TOP SCH (17:13)
[2018-08-16 20:21] VITALS: BP 133/64
[2018-08-17 05:26] VITALS: BP 155/88
[2018-08-17] MEDS: D5 IV PRN (07:37)
[2018-08-17] MEDS: POTASSIUM CHLORIDE IV PRN (07:37)
[2018-08-17] MEDS: 1/2 NS IV PRN (07:37)
[2018-08-17] MEDS: buPROPion SR 100 MG TABLET.SA PO SCH (08:34)
[2018-08-17] MEDS: POTASSIUM CHLORIDE 20 MEQ TAB.PRT.SR PO SCH (08:34)
[2018-08-17] MEDS: CLOTRIMAZOLE 1% CREAM 30 GM TUBE TOP SCH (08:34)
[2018-08-17] MEDS: Z GUARD REMEDY PASTE 57 GM TUBE TOP SCH (08:35)
[2018-08-17] MEDS: CHOLESTYRAMINE/ASPARTAME 4 G/PKT PACKET PO SCH (08:36)
== END 2018-08-17 10:30 | disposition home health service (06) | DRG 641 ==
LOC: ER 06:25 → MEDSURG3 08:24
PROVIDERS: ADMIT Family Medicine; ATTEND Family Medicine
DX: E87.6 Hypokalemia (principal); E86.0 Dehydration; F41.9 Anxiety disorder, unspecified; Z79.899 Other long term (current) drug therapy; K52.9 Noninfective gastroenteritis and colitis, unspecified; I49.9 Cardiac arrhythmia, unspecified; F32.9 Major depressive disorder, single episode, unspecified; R63.4 Abnormal weight loss; I10 Essential (primary) hypertension
CPT/HCPCS: 36415; 83735; 84100; 85025; 97116; 97530; A4663; G0378; J3475; J3480; J3490; Q0164; Q0169

== ENCOUNTER 2018-09-04 08:04 | Emergency (ER) | payer MEDICARE, BC ==
[~2018-09-04] VITALS: Ht 165.1 cm; Wt 49.9 kg
[~2018-09-04 08:04] MED LIST changes: -BUPR150T5 PO; -FURO-152 PO; -LORA-259 PO; +POTA20TA83 PO; -POTASSIUM PO; -ZOLP5TAB2 PO
[2018-09-04] MEDS ORDERED: IV NORMAL SALINE 1000 ML BAG IV ONE (08:15)
[2018-09-04] MEDS ORDERED: ONDANSETRON 4 MG/2 ML VIAL IV ONE (08:15)
[2018-09-04] MEDS ORDERED: HYDROMORPHONE 1 MG/1 ML DISP.SYRIN IV ONE ×2 (08:15→09:15)
[2018-09-04] MEDS ORDERED: HYDROMORPHONE 1 MG/1 ML DISP.SYRIN ONE ×2 (08:23→09:14)
[2018-09-04] MEDS ORDERED: ONDANSETRON 4 MG/2 ML VIAL ONE ×2 (08:24→09:14)
[2018-09-04 08:47] LABS: CARBON DIOXIDE 27 mmol/L (21-32); CHLORIDE 103 mmol/L (98-107); CREATININE 0.8 mg/dL (0.6-1.3); GLUCOSE 108 mg/dL (74-106); UREA NITROGEN, BLOOD 10 mg/dL (7-18)
[2018-09-04 08:53] LABS: ALANINE AMINOTRANSFERASE 23 U/L (14-59); ALKALINE PHOSPHATASE 131 U/L (50-136); ASPARTATE AMINOTRANSFERASE 17 U/L (15-37); BILIRUBIN,DIRECT 0.2 mg/dL (0.0-0.2); BILIRUBIN,TOTAL 0.8 mg/dL (0.2-1.0); LIPASE 237 U/L (73-393); TOTAL PROTEIN, SERUM 8.1 g/dL (6.4-8.2)
[2018-09-04 08:57] LABS: BASOPHILS % (AUTO) 0.6 % (0.0-2.0); EOSINOPHILS # (AUTO) 0.3 K/uL (0.0-0.7); EOSINOPHILS % (AUTO) 3.6 % (0.0-7.0); HEMATOCRIT 47.5 % (31.2-41.9); HEMOGLOBIN 15.5 g/dL (10.9-14.3); LYMPHOCYTES # (AUTO) 1.6 K/uL (20.0-40.0); LYMPHOCYTES % (AUTO) 21.9 % (20.5-51.5); MEAN CORPUSCULAR HEMOGLOBIN 28.3 uug (24.7-32.8); MEAN CORPUSCULAR HGB CONC 33 g/dL (32.3-35.6); MEAN CORPUSCULAR VOLUME 86.8 fL (75.5-95.3); MONOCYTES # (AUTO) 0.6 K/uL (2.0-10.0); MONOCYTES % (AUTO) 8.2 % (0.0-11.0); NEUTROPHILS % (AUTO) 65.7 % (38.5-71.5); PLATELET COUNT (AUTO) 300 K/uL (179-408); RED BLOOD CELL COUNT(AUTO) 5.48 MIL/uL (3.63-4.92); WHITE BLOOD COUNT (AUTO) 7.5 K/uL (3.8-11.8)
--- NOTE | 2018-09-04 09:00 | NUR ---
Pt back from CT/XRAY, pt refused urine specimen. Pt states " I just want some more pain medication and something for my anxiety ".
[2018-09-04 09:07] LABS: PHOSPHOROUS 3.3 mg/dL (2.5-4.9)
--- NOTE | 2018-09-04 09:09 | NUR ---
spoke with pt's pmd via telephone.
[2018-09-04] MEDS ORDERED: ONDANSETRON IV *ER 4 MG/2 ML VIAL IV ONE (09:15)
--- NOTE | 2018-09-04 09:35 | NUR ---
IV removed. Catheter intact and site benign. Pressure and 4x4 gauze applied to site. No bleeding noted.
--- NOTE | 2018-09-04 09:38 | NUR ---
Patient discharged to home in stable conditon. Written and verbal after care instructions given. Patient verbalizes understanding of instructions. Pt was given copies of her labs/CT/XRAY results, stressed follow up with pmd . Taxi was called for pt at her request, pt was brought to ER waiting room until the taxi arrives.
== END 2018-09-04 09:41 | disposition home or self-care (01) ==
LOC: ER 08:04
DX: R10.84 Generalized abdominal pain (principal); R11.2 Nausea with vomiting, unspecified; R19.7 Diarrhea, unspecified; Z79.899 Other long term (current) drug therapy
CPT/HCPCS: 36415; 71045; 74176; 80048; 80076; 83605; 83690; 83735; 84100; 84484; 85025; 85730; 87040; 93005; 96361; 96374; 96375; 96376; 99284; J1170 ×2; J2405 ×2; 70030-TC; A4663; J7030

== ENCOUNTER 2018-09-24 07:08 | Inpatient (IN) | payer MEDICARE, BC ==
[~2018-09-24] VITALS: Ht 165.1 cm; Wt 49.9 kg
--- NOTE | 2018-09-24 07:30 | NUR ---
Dr. Armando here to see pt for MSE.
[2018-09-24] MEDS ORDERED: IV NORMAL SALINE 500 ML BAG IV ONE ×2 (07:45→10:45)
[2018-09-24] MEDS ORDERED: MORPHINE SULFATE 2 MG/1 ML DISP.SYRIN IV ONE (07:45)
[2018-09-24] MEDS ORDERED: ONDANSETRON 4 MG/2 ML VIAL IV ONE ×2 (07:45→15:27)
[2018-09-24] MEDS ORDERED: MORPHINE SULFATE 4 MG/1 ML DISP.SYRIN ONE (07:57)
[2018-09-24] MEDS ORDERED: ONDANSETRON 4 MG/2 ML VIAL ONE (07:58)
[2018-09-24 08:42] LABS: CARBON DIOXIDE 27 mmol/L (21-32); CHLORIDE 100 mmol/L (98-107); CREATININE 0.7 mg/dL (0.6-1.3); GLUCOSE 152 mg/dL (74-106); POTASSIUM 3.4 mmol/L (3.5-5.1); UREA NITROGEN, BLOOD 8 mg/dL (7-18)
[2018-09-24 08:45] LABS: ALANINE AMINOTRANSFERASE 6 U/L (14-59); ALKALINE PHOSPHATASE 118 U/L (50-136); ASPARTATE AMINOTRANSFERASE 15 U/L (15-37); BILIRUBIN,DIRECT 0.1 mg/dL (0.0-0.2); BILIRUBIN,TOTAL 0.7 mg/dL (0.2-1.0); LIPASE 95 U/L (73-393); TOTAL PROTEIN, SERUM 7.5 g/dL (6.4-8.2)
[2018-09-24 08:48] LABS: BASOPHILS % (AUTO) 0.4 % (0.0-2.0); EOSINOPHILS # (AUTO) 0.1 K/uL (0.0-0.7); EOSINOPHILS % (AUTO) 0.8 % (0.0-7.0); HEMATOCRIT 43.6 % (31.2-41.9); HEMOGLOBIN 14.5 g/dL (10.9-14.3); LYMPHOCYTES # (AUTO) 1.2 K/uL (20.0-40.0); LYMPHOCYTES % (AUTO) 10.6 % (20.5-51.5); MEAN CORPUSCULAR HEMOGLOBIN 28.6 uug (24.7-32.8); MEAN CORPUSCULAR HGB CONC 33 g/dL (32.3-35.6); MEAN CORPUSCULAR VOLUME 86.1 fL (75.5-95.3); MONOCYTES # (AUTO) 0.6 K/uL (2.0-10.0); NEUTROPHILS # (AUTO) 9.2 K/uL (1.8-8.9); NEUTROPHILS % (AUTO) 83.2 % (38.5-71.5); PLATELET COUNT (AUTO) 225 K/uL (179-408); RED BLOOD CELL COUNT(AUTO) 5.06 MIL/uL (3.63-4.92)
--- NOTE | 2018-09-24 09:08 | NUR ---
Pt returned from CT with radiology. Pt stable and nad noted upon returning to the ER.
[2018-09-24] MEDS ORDERED: PROCHLORPERAZINE EDISYLATE 10 MG/2 ML VIAL IV ONE (09:30)
--- NOTE | 2018-09-24 09:38 | NUR ---
Dr Armando spoke to GI surgeon, Dr James.
[2018-09-24] MEDS ORDERED: PROCHLORPERAZINE EDISYLATE 10 MG/2 ML VIAL ONE (09:40)
[2018-09-24] MEDS ORDERED: HYDROMORPHONE 1 MG/1 ML DISP.SYRIN ONE (09:42)
--- NOTE | 2018-09-24 09:44 | NUR ---
Paged [facility] for m/s admit. Awaiting call back.
[2018-09-24] MEDS ORDERED: HYDROMORPHONE 1 MG/1 ML DISP.SYRIN IV ONE ×3 (09:45→16:15)
[2018-09-24] MEDS ORDERED: DULO60CA45 PO (10:05)
--- NOTE | 2018-09-24 10:05 | NUR ---
NG-tube on right nares inserted per MD order. Pt stable and nad after insertion. NG-tube connected to low, continuous suction as ordered.
--- NOTE | 2018-09-24 10:19 | NUR ---
WOODY Leone here to see pt and receive report from ER doctor.
[2018-09-24] MEDS ORDERED: IBUPROFEN 400 MG TABLET PO PRN (10:45)
--- NOTE | 2018-09-24 10:47 | NUR ---
Full telephone SBAR report given to RN Karen 3rd floor.
[2018-09-24] MEDS ORDERED: ACETAMINOPHEN 650 MG SUPP.RECT RC PRN (11:00)
[2018-09-24] MEDS ORDERED: MAGNESIUM HYDROXIDE 30 ML LIQUID UDC PO PRN (11:00)
[2018-09-24] MEDS ORDERED: MORPHINE SULFATE 2 MG/1 ML DISP.SYRIN IV PRN (11:00)
--- NOTE | 2018-09-24 11:00 | NUR ---
Brought pt up to 3rd floor 325 med/surg for admission. All belongings reviewed and brought up with the pt.
--- NOTE | 2018-09-24 11:00 | NUR ---
Received patient from ER and admitted to Medsurg Unit with diagnosis of Abdominal pain, patient has NGtube 16 wallisian on low intermittent suction. no s/s of acute distress noted at this time with IV on right Forearm . upon arrival pt c/o of pain and PRN pain meds given as ordered. will continue to monitor.
[2018-09-24 11:41] VITALS: BP 159/83
[2018-09-24] MEDS: FAMOTIDINE. 20 MG/2 ML VIAL IV SCH ×2 (11:48→22:32)
[2018-09-24] MEDS ORDERED: HYDROMORPHONE 1 MG/1 ML DISP.SYRIN IV PRN ×2 (12:30→19:45)
[2018-09-24] MEDS ORDERED: KETOROLAC TROMETHAMINE 30 MG INJ IM ONE (15:27)
[2018-09-24] MEDS ORDERED: LIDOCAINE-MPF 2% 5 ML VIAL MC ONE (15:27)
[2018-09-24] MEDS ORDERED: SEVOFLURANE 250 ML BOTTLE IH ONE (15:27)
[2018-09-24] MEDS ORDERED: PROPOFOL 200 MG/20 ML BOTTLE IV ONE (15:27)
[2018-09-24] MEDS ORDERED: CEFAZOLIN 1 G VIAL MC ONE (15:27)
[2018-09-24] MEDS ORDERED: NEOSTIGMINE METHYLSULFATE 10 MG/10 ML VIAL IV ONE (15:27)
[2018-09-24] MEDS ORDERED: IV NORMAL SALINE 1000 ML BAG IV ONE (15:27)
[2018-09-24] MEDS ORDERED: PHENYLEPHRINE 10 MG/1 ML VIAL MC ONE (15:27)
[2018-09-24] MEDS ORDERED: GLYCOPYRROLATE 0.2 MG/ML VIAL MC ONE (15:27)
[2018-09-24] MEDS ORDERED: IRR NORMAL SALINE IRRIGATION 2000 ML BOTTLE IR ONE (15:27)
[2018-09-24] MEDS ORDERED: EPHEDRINE SULFATE 50 MG/ML AMPUL MC ONE (15:27)
[2018-09-24 15:30] VITALS: BP 139/63
[2018-09-24] MEDS ORDERED: Z GUARD REMEDY PASTE 57 GM TUBE TOP PRN (15:45)
--- NOTE | 2018-09-24 16:00 | NUR ---
Dr. James came to see patient.
[2018-09-24 16:14] LABS: *BILIRUBIN,URIN NEGATIVE (NEGATIVE); *BLOOD, URINE 2+ (NEGATIVE); *CLARITY,URINE CLOUDY (CLEAR); *COLOR,URINE YELLOW (YELLOW); *KETONES,URINE 2+ (NEGATIVE); *UROBILINOGEN,URINE 0.2 E.U./dl (NORMAL); LEUKOCYTE ESTERASE ,URINE 1+ (NEGATIVE); NITRITE, URINE POSITIVE (NEGATIVE); PH,URINE 5.5 (5.0-8.0); UGLUCOSE NEGATIVE (NEGATIVE)
[2018-09-24 16:32] LABS: BACTERIA,URINE MANY /HPF (NONE SEEN); SQUAMOUS EPITHELIAL CELL,UR FEW /HPF (NONE SEEN); WBC,URINE 20-50 /HPF (0-3)
[2018-09-24 16:33] LABS: MUCUS,URINE MANY /LPF (0-FEW)
[2018-09-24] MEDS ORDERED: FENTANYL CITRATE 100 MCG/2 ML AMPUL ONE ×3 (17:09→19:39)
[2018-09-24] MEDS ORDERED: SUCCINYLCHOLINE CHLORIDE 200 MG/10 ML VIAL ONE (17:09)
[2018-09-24] MEDS ORDERED: MIDAZOLAM HCL 2 MG/2 ML VIAL ONE (17:09)
[2018-09-24] MEDS ORDERED: ROCURONIUM BROMIDE 50 MG/5 ML VIAL ONE (17:09)
--- NOTE | 2018-09-24 17:15 | NUR ---
patient left for surgery with signed consent, for laproscopic ventral hernial repair.
[2018-09-24] MEDS ORDERED: BUPIVACAINE/EPI PF 0.25% 30 ML VIAL ONE (17:50)
[2018-09-24] MEDS ORDERED: LIDOCAINE HCL 1% 20 ML VIAL ONE (17:51)
[2018-09-24] MEDS ORDERED: METRONIDAZOLE 500 MG/NS 100ML 500 MG in PREMIXED 1 EACH IV ONE (18:00)
--- NOTE | 2018-09-24 20:35 | NUR ---
Received patient from OR. Patient is awake and oriented x 3. Situated patient to her room. Patient denies pain or SOB. On O2 2L NC. NGT on the right nostril, placed on low and intermittently suction. Dark green/ brown residual. TELE SR at 72. Abdominal binder in place. FPC assessment done. Noted surgery lacerations on the ABD, clean/dry/intact. Noted sacral redness. DVT pumps in place. Safety initiated. Call light within reach. Will closely monitor vitals signs and patient status.
--- NOTE | 2018-09-24 21:48 | NUR ---
Monitoring VS, stable NO temperature. Will closely monitor.
[2018-09-24] MEDS ORDERED: METRONIDAZOLE 500 MG/NS 100ML 100 ML IV ONE (22:46)
[2018-09-25] MEDS: LORAZEPAM 2 MG/1 ML VIAL IV PRN ×2 (00:05→22:03)
[2018-09-25 00:13] VITALS: BP 116/57
[2018-09-25 04:00] VITALS: BP 114/55
--- NOTE | 2018-09-25 05:33 | NUR ---
Patient slept t/o shift. Remains A/O x 3 but has periods of forgetfulness. Patient remains on Room Air with NGT on the right nostrils. Very small amount of light colored fluid noted on the suction tubing. C/O of mild pain. TELE SR 75. Abdominal binder in place. Surgery incision appears to be clean, dry and intact. IV on the right FA infusing. Patient was able to urinate 400 cc of clear yellow urine. Bowel sounds hypoactive. However, patient mentioned she is able to pass gas. Mepilex placed on the sacral area. DVT pumps in place. Vital signs stable. No temperature. All meds given as ordered. All needs met. Safety and comfort measures maintained t/o shift
[2018-09-25] MEDS: IV NS 1000 ML 1,000 ML IV PRN ×2 (06:12→12:13)
[2018-09-25] MEDS ORDERED: PIPERACILLIN/TAZOBACTAM/D5W 3.375 G in PREMIXED 1 EACH IV SCH (07:45)
--- NOTE | 2018-09-25 07:56 | NUR ---
Awake, alert, oriented x 4. O2 at 2L/NC. IVF infusing. NPO maintained. NGT to LIS, no output noted. Abdominal lap sites clean and dry, supported with binder. Denies pain at this time
[2018-09-25] MEDS: FAMOTIDINE. 20 MG/2 ML VIAL IV SCH (08:42)
[2018-09-25] MEDS: HYDROMORPHONE 1 MG/1 ML DISP.SYRIN IM PRN ×2 (08:43→12:19)
[2018-09-25] MEDS: ENOXAPARIN SODIUM 40 MG/0.4 ML DISP.SYRIN SQ SCH (08:50)
[2018-09-25] MEDS: PIPERACILLIN/TAZOBACTAM/D5W 3.375 G in PREMIXED 1 EACH IV SCH ×3 (08:51→22:03)
[2018-09-25 08:54] LABS: BASOPHILS % (AUTO) 0.2 % (0.0-2.0); EOSINOPHILS # (AUTO) 1.2 K/uL (0.0-0.7); EOSINOPHILS % (AUTO) 10.9 % (0.0-7.0); HEMATOCRIT 40.2 % (31.2-41.9); HEMOGLOBIN 13.2 g/dL (10.9-14.3); LYMPHOCYTES # (AUTO) 1.8 K/uL (20.0-40.0); LYMPHOCYTES % (AUTO) 16.2 % (20.5-51.5); MEAN CORPUSCULAR HEMOGLOBIN 28.5 uug (24.7-32.8); MEAN CORPUSCULAR HGB CONC 33 g/dL (32.3-35.6); MEAN CORPUSCULAR VOLUME 86.9 fL (75.5-95.3); MONOCYTES # (AUTO) 1.1 K/uL (2.0-10.0); MONOCYTES % (AUTO) 10.2 % (0.0-11.0); NEUTROPHILS # (AUTO) 6.9 K/uL (1.8-8.9); NEUTROPHILS % (AUTO) 62.5 % (38.5-71.5); PLATELET COUNT (AUTO) 217 K/uL (179-408); RED BLOOD CELL COUNT(AUTO) 4.63 MIL/uL (3.63-4.92)
[2018-09-25] MEDS ORDERED: LOPERAMIDE HCL 1 MG/5 ML UDC PO PRN (09:00)
[2018-09-25 09:23] LABS: CARBON DIOXIDE 26 mmol/L (21-32); CHLORIDE 108 mmol/L (98-107); CHOLESTEROL 226 mg/dL (<200); CREATININE 0.7 mg/dL (0.6-1.3); GLUCOSE 93 mg/dL (74-106); HDL CHOLESTEROL 47 mg/dL (40-60); MAGNESIUM 1.7 mg/dL (1.8-2.4); PHOSPHOROUS 3.6 mg/dL (2.5-4.9); POTASSIUM 3.3 mmol/L (3.5-5.1); TRIGLYCERIDES 85 MG/DL (30-150); UREA NITROGEN, BLOOD 13 mg/dL (7-18)
[2018-09-25] MEDS: POTASSIUM CHLORIDE 20 MEQ TAB.PRT.SR PO SCH ×2 (09:30→16:29)
[2018-09-25] MEDS: DULOXETINE 60 MG CAPSULE.DR PO SCH (09:30)
--- NOTE | 2018-09-25 10:00 | NUR ---
With bowel sounds, started on clear liquids. Noted NGT with no output, pulled out accidentally. Ambulated with PT in the hallway. Not passing gas yet
[2018-09-25 11:54] VITALS: BP 125/66
--- NOTE | 2018-09-25 13:00 | NUR ---
IV site leaking. Restarted on left forearm
[2018-09-25] MEDS ORDERED: HYDROMORPHONE 1 MG/1 ML DISP.SYRIN IM PRN (13:30)
--- NOTE | 2018-09-25 15:00 | NUR ---
Spoke with Dr. James, with instruction for patient to just take sips of clear liquids
[2018-09-25 16:00] VITALS: BP 110/55
[2018-09-25] MEDS: HYDROMORPHONE 1 MG/1 ML DISP.SYRIN IV PRN ×2 (16:24→20:39)
[2018-09-25] MEDS ORDERED: MAGNESIUM SULFATE/D5W 100 ML IV ONE (17:15)
[2018-09-25] MEDS ORDERED: POTASSIUM CHLORIDE 20 MEQ POWDER PACKET PO ONE (17:15)
--- NOTE | 2018-09-25 18:18 | NUR ---
Repositioned comfortably in bed. IVF infusing. Kept dry and comfortable
--- NOTE | 2018-09-25 19:12 | NUR ---
Seen by Dr. James. Ice packs applied on abdomen. Refused ambulation at this time.
--- NOTE | 2018-09-25 19:20 | NUR ---
Received patient lying in bed. AAOx4. On no acute distress. Complained of abdominal pain, will provide pain medication per order. Abdominal binder in place. Ice pack on abdominal area. On O2 at 2LPM via NC in place. O2 sat at 99%. NSR on tele at 68/min. VS WNL. IV site on left FA intact and patent. IVF infusing. Needs assessed and attended to. Safety measure initiated and call poole within reach.
[2018-09-25 20:20] VITALS: BP 129/69
[2018-09-25] MEDS: FAMOTIDINE 20 MG TABLET PO SCH (20:39)
[2018-09-26 00:11] VITALS: BP 130/69
[2018-09-26] MEDS: HYDROMORPHONE 1 MG/1 ML DISP.SYRIN IV PRN ×5 (01:34→18:15)
[2018-09-26] MEDS: IV NS 1000 ML 1,000 ML IV PRN ×2 (03:16→17:12)
[2018-09-26 04:00] VITALS: BP 141/70
[2018-09-26] MEDS: PIPERACILLIN/TAZOBACTAM/D5W 3.375 G in PREMIXED 1 EACH IV SCH ×2 (05:28→14:07)
--- NOTE | 2018-09-26 06:40 | NUR ---
AAOx4. In no acute distress. On O2 at 2LPM via NC in place. O2 sat at 95%. Dilaudid 1mg IV given for complain of abdominal pain and with help. Abdominal binder in place. Continue to provided ice pack on abdominal area. NSR on tele at 65/min. IV site on left FA intact and patent. IVF infusing. No adverse effect noted from IV ABX. Needs attended to and met. Safety measure maintained and call poole within reach.
[2018-09-26 07:51] LABS: BASOPHILS % (AUTO) 0.2 % (0.0-2.0); EOSINOPHILS # (AUTO) 1.9 K/uL (0.0-0.7); EOSINOPHILS % (AUTO) 19.3 % (0.0-7.0); HEMATOCRIT 40.3 % (31.2-41.9); HEMOGLOBIN 13.1 g/dL (10.9-14.3); LYMPHOCYTES # (AUTO) 1.7 K/uL (20.0-40.0); LYMPHOCYTES % (AUTO) 17.4 % (20.5-51.5); MEAN CORPUSCULAR HEMOGLOBIN 28.6 uug (24.7-32.8); MEAN CORPUSCULAR HGB CONC 33 g/dL (32.3-35.6); MEAN CORPUSCULAR VOLUME 87.9 fL (75.5-95.3); MONOCYTES % (AUTO) 10.1 % (0.0-11.0); NEUTROPHILS # (AUTO) 5.1 K/uL (1.8-8.9); PLATELET COUNT (AUTO) 181 K/uL (179-408); RED BLOOD CELL COUNT(AUTO) 4.59 MIL/uL (3.63-4.92); WHITE BLOOD COUNT (AUTO) 9.7 K/uL (3.8-11.8)
[2018-09-26 07:56] LABS: CARBON DIOXIDE 28 mmol/L (21-32); CHLORIDE 106 mmol/L (98-107); CREATININE 0.6 mg/dL (0.6-1.3); GLUCOSE 86 mg/dL (74-106); POTASSIUM 3.2 mmol/L (3.5-5.1); UREA NITROGEN, BLOOD 10 mg/dL (7-18)
[2018-09-26] MEDS: DULOXETINE 60 MG CAPSULE.DR PO SCH (08:51)
[2018-09-26] MEDS: POTASSIUM CHLORIDE 20 MEQ TAB.PRT.SR PO SCH ×2 (08:52→17:12)
[2018-09-26] MEDS: FAMOTIDINE 20 MG TABLET PO SCH ×2 (08:52→21:03)
[2018-09-26] MEDS: ENOXAPARIN SODIUM 40 MG/0.4 ML DISP.SYRIN SQ SCH (08:53)
[2018-09-26 11:23] VITALS: BP 136/66
[2018-09-26] MEDS: POTASSIUM CHLORIDE 50 ML IV SCH ×3 (11:42→14:00)
[2018-09-26 15:30] VITALS: BP 134/75
--- NOTE | 2018-09-26 19:20 | NUR ---
Received patient lying in bed. AAOx4. On no acute distress. No complain of pain at this time. Abdominal binder in place. Ice pack on abdominal area. NSR on tele at 76/min. IV site on right hand intact and patent. IVF infusing. Needs assessed and attended to. Safety measure initiated and call poole within reach.
[2018-09-26 20:08] VITALS: BP 120/60
[2018-09-26] MEDS: MEROPENEM 1 G in IV NORMAL SALINE 100 ML IV SCH (21:04)
[2018-09-26] MEDS: LORAZEPAM 2 MG/1 ML VIAL IV PRN (21:10)
[2018-09-27 00:35] VITALS: BP 139/73
[2018-09-27 04:00] VITALS: BP 125/72
[2018-09-27] MEDS: MEROPENEM 1 G in IV NORMAL SALINE 100 ML IV SCH ×2 (05:11→13:57)
[2018-09-27] MEDS: ONDANSETRON 4 MG/2 ML VIAL IV PRN (05:57)
[2018-09-27] MEDS: HYDROMORPHONE 1 MG/1 ML DISP.SYRIN IV PRN ×4 (06:03→21:27)
--- NOTE | 2018-09-27 06:19 | NUR ---
AAOx4. In no acute distress. Dilaudid 1mg IV given for complain of abdominal pain and effective. Abdominal binder in place. NSR on tele at5/min. IV site on right hand intact and patent. IVF infusing. No adverse reaction noted from IV ABX. Isolation precaution observed. Needs attended to and met. Safety measure maintained and call poole within reach. Addendum: 09/27/18 at 0619 by FRANCISCA RFEEMAN RN NSR on tele at 97/min.
[2018-09-27] MEDS: IV NS 1000 ML 1,000 ML IV PRN ×2 (08:00→22:16)
[2018-09-27] MEDS: DULOXETINE 60 MG CAPSULE.DR PO SCH (08:04)
[2018-09-27] MEDS: POTASSIUM CHLORIDE 20 MEQ TAB.PRT.SR PO SCH ×2 (08:04→15:21)
[2018-09-27] MEDS: FAMOTIDINE 20 MG TABLET PO SCH ×2 (08:05→20:38)
[2018-09-27] MEDS: ENOXAPARIN SODIUM 40 MG/0.4 ML DISP.SYRIN SQ SCH (08:07)
[2018-09-27 11:19] VITALS: BP 134/68
[2018-09-27 11:21] LABS: BASOPHILS # (AUTO) 0.1 K/uL (0.0-8.0); BASOPHILS % (AUTO) 0.7 % (0.0-2.0); EOSINOPHILS # (AUTO) 1.1 K/uL (0.0-0.7); EOSINOPHILS % (AUTO) 12.5 % (0.0-7.0); HEMATOCRIT 39.2 % (31.2-41.9); HEMOGLOBIN 12.9 g/dL (10.9-14.3); LYMPHOCYTES # (AUTO) 1.9 K/uL (20.0-40.0); LYMPHOCYTES % (AUTO) 22.6 % (20.5-51.5); MEAN CORPUSCULAR HEMOGLOBIN 28.6 uug (24.7-32.8); MEAN CORPUSCULAR HGB CONC 33 g/dL (32.3-35.6); MEAN CORPUSCULAR VOLUME 86.6 fL (75.5-95.3); MONOCYTES # (AUTO) 0.8 K/uL (2.0-10.0); MONOCYTES % (AUTO) 9.5 % (0.0-11.0); NEUTROPHILS # (AUTO) 4.7 K/uL (1.8-8.9); NEUTROPHILS % (AUTO) 54.7 % (38.5-71.5); PLATELET COUNT (AUTO) 224 K/uL (179-408); RED BLOOD CELL COUNT(AUTO) 4.53 MIL/uL (3.63-4.92); WHITE BLOOD COUNT (AUTO) 8.5 K/uL (3.8-11.8)
[2018-09-27 11:33] LABS: CARBON DIOXIDE 30 mmol/L (21-32); CHLORIDE 102 mmol/L (98-107); CREATININE 0.5 mg/dL (0.6-1.3); GLUCOSE 106 mg/dL (74-106); MAGNESIUM 1.6 mg/dL (1.8-2.4); PHOSPHOROUS 1.4 mg/dL (2.5-4.9); POTASSIUM 3.4 mmol/L (3.5-5.1); UREA NITROGEN, BLOOD 9 mg/dL (7-18)
--- NOTE | 2018-09-27 13:01 | NUR ---
WOUND CARE CONSULT: PT PRESENTS WITH RASH TO BUTTOCKS AND SKIN TEAR TO LEFT ARM, PRESENT ON ADMISSION. PT NOTED TO BE IRRITABLE AT TIMES. RECOMMENDATIONS MADE FOR SKIN PROTECTION AND WOUND CARE. DISCUSSED WITH NURSING STAFF. WILL SEE PRN. THORPE IN AGREEMENT WITH PLAN OF CARE. Addendum: 09/27/18 at 1301 by STEFANIA SANTANA RN Amended: Links added.
[2018-09-27 15:22] VITALS: BP 158/80
[2018-09-27] MEDS: CLOTRIMAZOLE 1% CREAM 30 GM TUBE TOP SCH (15:22)
[2018-09-27] MEDS ORDERED: NEUTRA PHOS PACKET PO ONE (15:30)
[2018-09-27] MEDS: HYDROCODONE/APAP 5-325MG TABLET PO PRN (16:41)
--- NOTE | 2018-09-27 19:20 | NUR ---
Received patient lying in bed. AAOx4. In no acute distress. Denies any pain or SOB at this time. IV site on right FA intact and patent. IVF infusing. Needs assessed and attended to. Isolation precaution observed. Safety measure initiated and call poole within reach.
[2018-09-27 20:00] VITALS: BP 139/79
[2018-09-27] MEDS: NITROFURANTOIN/NITROFURAN MAC 100 MG CAPSULE PO SCH (20:38)
--- NOTE | 2018-09-28 05:32 | NUR ---
Patient BP 168/90, recheck and obtain 172/93. Patient asymptomatic. Denies any change in vision, dizziness or DAVID. Mariel Stokes made aware. Awaiting for any new order.
--- NOTE | 2018-09-28 05:50 | NUR ---
Paged More Stokes. regarding high BP. Still awaiting for return call.
[2018-09-28 05:52] VITALS: BP 168/90
[2018-09-28] MEDS: ONDANSETRON 4 MG/2 ML VIAL IV PRN ×2 (06:08→12:56)
--- NOTE | 2018-09-28 06:17 | NUR ---
AAOx4. In no acute distress. Dilaudid 1mg IV given x1 for complain of abdominal pain and effective. Complained of nausea, Zofran 4mg IV given x1. No vomiting. Multiple loose BM this shift. Abdominal binder in place. IV site on right FA intact and patent. IVF infusing. No adverse reaction noted from PO ABX. Isolation precaution maintained. Needs attended to and met. Safety measure maintained and call poole within reach.
--- NOTE | 2018-09-28 06:26 | NUR ---
Telephone call back from BOSTON Aguero. Informed of high BP, pt remains asymptomatic. No new order given. Continue to monitor.
--- NOTE | 2018-09-28 07:15 | NUR ---
Received patient on contact isolation and patient laying in bed alert and oriented and awake, also received from report to continue monitor per Dr. Leone due to high BP, patient's BP 156/ 83 , patient is asymtomatic, and anxious. . will continue to monitor, no s/s of acute distress noted at this time. safety and comfort at all times.
[2018-09-28] MEDS: NITROFURANTOIN/NITROFURAN MAC 100 MG CAPSULE PO SCH ×2 (08:24→20:20)
[2018-09-28] MEDS: DULOXETINE 60 MG CAPSULE.DR PO SCH (08:24)
[2018-09-28] MEDS: POTASSIUM CHLORIDE 20 MEQ TAB.PRT.SR PO SCH ×2 (08:24→17:57)
[2018-09-28] MEDS: FAMOTIDINE 20 MG TABLET PO SCH ×2 (08:24→20:20)
[2018-09-28] MEDS: HYDROMORPHONE 1 MG/1 ML DISP.SYRIN IV PRN ×3 (08:24→20:19)
[2018-09-28] MEDS: ENOXAPARIN SODIUM 40 MG/0.4 ML DISP.SYRIN SQ SCH (08:26)
[2018-09-28] MEDS: CLOTRIMAZOLE 1% CREAM 30 GM TUBE TOP SCH ×2 (08:37→17:57)
[2018-09-28 11:10] VITALS: BP 129/76
[2018-09-28 12:33] LABS: BASOPHILS # (AUTO) 0.1 K/uL (0.0-8.0); BASOPHILS % (AUTO) 0.8 % (0.0-2.0); EOSINOPHILS # (AUTO) 0.4 K/uL (0.0-0.7); HEMATOCRIT 40.2 % (31.2-41.9); HEMOGLOBIN 13.4 g/dL (10.9-14.3); LYMPHOCYTES # (AUTO) 1.2 K/uL (20.0-40.0); LYMPHOCYTES % (AUTO) 12.6 % (20.5-51.5); MEAN CORPUSCULAR HEMOGLOBIN 28.7 uug (24.7-32.8); MEAN CORPUSCULAR HGB CONC 33 g/dL (32.3-35.6); MEAN CORPUSCULAR VOLUME 86.2 fL (75.5-95.3); MONOCYTES # (AUTO) 0.8 K/uL (2.0-10.0); MONOCYTES % (AUTO) 8.2 % (0.0-11.0); NEUTROPHILS # (AUTO) 7.3 K/uL (1.8-8.9); NEUTROPHILS % (AUTO) 74.4 % (38.5-71.5); PLATELET COUNT (AUTO) 228 K/uL (179-408); RED BLOOD CELL COUNT(AUTO) 4.66 MIL/uL (3.63-4.92); WHITE BLOOD COUNT (AUTO) 9.8 K/uL (3.8-11.8)
[2018-09-28 12:45] LABS: CARBON DIOXIDE 31 mmol/L (21-32); CHLORIDE 100 mmol/L (98-107); CREATININE 0.5 mg/dL (0.6-1.3); GLUCOSE 122 mg/dL (74-106); MAGNESIUM 1.5 mg/dL (1.8-2.4); PHOSPHOROUS 1.3 mg/dL (2.5-4.9); POTASSIUM 3.3 mmol/L (3.5-5.1); UREA NITROGEN, BLOOD 6 mg/dL (7-18)
[2018-09-28] MEDS: IV NS 1000 ML 1,000 ML IV PRN (13:00)
[2018-09-28] MEDS ORDERED: NEUTRA PHOS PACKET PO ONE (14:15)
[2018-09-28] MEDS ORDERED: POTASSIUM CHLORIDE 20 MEQ TAB.PRT.SR PO ONE (14:15)
[2018-09-28] MEDS: MAGNESIUM SULFATE/D5W 100 ML IV SCH ×3 (15:06→17:09)
[2018-09-28 15:16] VITALS: BP 146/84
[2018-09-28] MEDS: HYDROCODONE/APAP 5-325MG TABLET PO PRN (18:28)
--- NOTE | 2018-09-28 19:50 | NUR ---
Received patient on contact isolation and patient laying in bed alert and oriented and awake,. will continue to monitor, no s/s of acute distress noted at this time. safety and comfort at all times.
--- NOTE | 2018-09-28 19:51 | NUR ---
RECEIVED PT AWAKE, ALERT AND ORIENTEDX4. PT SHOWS NO SIGNS OF ACUTE DISTRESS. IV INTACT. CALL LIGHT WITHIN REACH. SAFETY AND COMFORT PROVIDED. PT ON CONTACT ISOLATION. WILL CONTINUE TO MONITOR.
[2018-09-28 20:00] VITALS: BP 140/72
[2018-09-28] MEDS: LORAZEPAM 2 MG/1 ML VIAL IV PRN (22:53)
[2018-09-29] MEDS: IV NS 1000 ML 1,000 ML IV PRN (04:07)
[2018-09-29 04:30] VITALS: BP 144/91
--- NOTE | 2018-09-29 06:23 | NUR ---
PT TURNED AND REPOSITIONED. WILL CONTINUE TO MONITOR.
--- NOTE | 2018-09-29 06:24 | NUR ---
PT SLEPT INTERMITTENTLY. PT SHOWS NO SIGNS OF ACUTE DISTRESS. DILAUDID PRN GIVEN FOR HER ABDOMEN. PT TOLERATED IT WELL. IV INTACT. PRESCRIBED MEDICATION GIVEN AND PT TOLERATED IT WELL. SAFETY AND COMFORT PROVIDED. ALL NEEDS ARE MET. WILL ENDORSE ACCORDINGLY TO INCOMING NURSE FOR CONTINUITY OF CARE.
--- NOTE | 2018-09-29 07:30 | NUR ---
Patient calm and comfortable with no signs of distress; call light with in reach , safety devices in place.
[2018-09-29] MEDS: POTASSIUM CHLORIDE 20 MEQ TAB.PRT.SR PO SCH (08:37)
[2018-09-29] MEDS: NITROFURANTOIN/NITROFURAN MAC 100 MG CAPSULE PO SCH (08:37)
[2018-09-29] MEDS: DULOXETINE 60 MG CAPSULE.DR PO SCH (08:37)
[2018-09-29] MEDS: FAMOTIDINE 20 MG TABLET PO SCH (08:37)
[2018-09-29] MEDS: ENOXAPARIN SODIUM 40 MG/0.4 ML DISP.SYRIN SQ SCH (08:42)
[2018-09-29] MEDS: HYDROMORPHONE 1 MG/1 ML DISP.SYRIN IV PRN ×2 (08:43→12:48)
[2018-09-29] MEDS: CLOTRIMAZOLE 1% CREAM 30 GM TUBE TOP SCH (08:45)
[2018-09-29 10:09] LABS: HEMOGLOBIN 13.6 g/dL (10.9-14.3); RED BLOOD CELL COUNT(AUTO) 4.77 MIL/uL (3.63-4.92); WHITE BLOOD COUNT (AUTO) 9.7 K/uL (3.8-11.8)
[2018-09-29 10:10] LABS: BASOPHILS # (AUTO) 0.1 K/uL (0.0-8.0); BASOPHILS % (AUTO) 0.6 % (0.0-2.0); EOSINOPHILS # (AUTO) 0.9 K/uL (0.0-0.7); EOSINOPHILS % (AUTO) 9.5 % (0.0-7.0); HEMATOCRIT 41.3 % (31.2-41.9); LYMPHOCYTES # (AUTO) 1.1 K/uL (20.0-40.0); LYMPHOCYTES % (AUTO) 10.9 % (20.5-51.5); MEAN CORPUSCULAR HEMOGLOBIN 28.6 uug (24.7-32.8); MEAN CORPUSCULAR HGB CONC 33 g/dL (32.3-35.6); MEAN CORPUSCULAR VOLUME 86.5 fL (75.5-95.3); MONOCYTES # (AUTO) 0.7 K/uL (2.0-10.0); MONOCYTES % (AUTO) 7.2 % (0.0-11.0); NEUTROPHILS # (AUTO) 6.9 K/uL (1.8-8.9); NEUTROPHILS % (AUTO) 71.8 % (38.5-71.5); PLATELET COUNT (AUTO) 228 K/uL (179-408)
[2018-09-29 10:24] LABS: CARBON DIOXIDE 30 mmol/L (21-32); CHLORIDE 100 mmol/L (98-107); CREATININE 0.5 mg/dL (0.6-1.3); GLUCOSE 213 mg/dL (74-106); MAGNESIUM 1.9 mg/dL (1.8-2.4); PHOSPHOROUS 2.3 mg/dL (2.5-4.9); POTASSIUM 3.2 mmol/L (3.5-5.1); UREA NITROGEN, BLOOD 7 mg/dL (7-18)
[2018-09-29 11:18] VITALS: BP 127/61
[2018-09-29] MEDS ORDERED: ENOX40DI SQ (12:31)
[2018-09-29] MEDS ORDERED: HYDR-3326 PO (12:31)
[2018-09-29] MEDS ORDERED: FAMO20TA8 PO (12:31)
[2018-09-29] MEDS ORDERED: ONDA4TAB5 PO (12:31)
[2018-09-29] MEDS ORDERED: NITR100C11 PO (12:31)
--- NOTE | 2018-09-29 13:10 | NUR ---
Patient discharged home in private car with caregiver . Patient has stable vital signs with all belongings and valuables . Patient in stable condition ; Prescription medication given.
== END 2018-09-29 12:25 | disposition home health service (06) | DRG 330 ==
LOC: ER 07:08 → MEDSURG3 10:38 → TELE3 21:00 → MEDSURG3 09-27 13:34
PROVIDERS: ADMIT Nurse Practitioner Acute Care; ATTEND Nurse Practitioner Acute Care
PROC: 0DB80ZZ Excision of Small Intestine, Open Approach (ICD-10-PCS; principal; 2018-09-24)
PROC: 0WQF0ZZ Repair Abdominal Wall, Open Approach (ICD-10-PCS; 2018-09-24)
PROC: 0WJF4ZZ Inspection of Abdominal Wall, Percutaneous Endoscopic Approach (ICD-10-PCS; 2018-09-24)
DX: K43.6 Other and unspecified ventral hernia with obstruction, without gangrene (principal); N39.0 Urinary tract infection, site not specified; K56.0 Paralytic ileus; R18.8 Other ascites; E87.1 Hypo-osmolality and hyponatremia; K40.20 Bilateral inguinal hernia, without obstruction or gangrene, not specified as recurrent; E87.6 Hypokalemia; B96.20 Unspecified Escherichia coli [E. coli] as the cause of diseases classified elsewhere; Z16.12 Extended spectrum beta lactamase (ESBL) resistance; F41.9 Anxiety disorder, unspecified; F32.9 Major depressive disorder, single episode, unspecified; E83.42 Hypomagnesemia; E83.39 Other disorders of phosphorus metabolism; E78.5 Hyperlipidemia, unspecified; E78.00 Pure hypercholesterolemia, unspecified; I10 Essential (primary) hypertension; Z98.82 Breast implant status; K52.9 Noninfective gastroenteritis and colitis, unspecified; Z53.31 Laparoscopic surgical procedure converted to open procedure; K86.89 Other specified diseases of pancreas; R73.9 Hyperglycemia, unspecified
CPT/HCPCS: 36415; 43752; 70030-TC; 71045; 74018; 83690; 83735; 84100; 85025; 85730; 86850; 86900; 86901; 87086; 93005; 93307; A4217; A4663; G0378; J0330; J0690; J0780; J1170; J1650; J1885; J2060; J2185; J2250; J2270; J2370; J2405; J2543; J2710; J3010; J3475; J3480; J3490; J7030; J7040

== ENCOUNTER 2018-10-02 16:31 | Emergency (ER) | payer MEDICARE, BC ==
[~2018-10-02] VITALS: Ht 165.1 cm; Wt 52.6 kg
[~2018-10-02 16:31] MED LIST changes: -BUPR100T5 PO; +ENOX40DI SQ; +FAMO20TA8 PO; +HYDR-3326 PO; -LOPE1TAB46 PO; +NITR100C11 PO; +ONDA4TAB5 PO; -PROC-11 PO
[2018-10-02] MEDS ORDERED: DULO60CA45 PO (17:30)
[2018-10-02] MEDS ORDERED: ONDANSETRON 4 MG/2 ML VIAL IV ONE (18:00)
[2018-10-02] MEDS ORDERED: IV NORMAL SALINE 1000 ML BAG IV ONE (18:00)
[2018-10-02] MEDS ORDERED: HYDROMORPHONE 1 MG/1 ML DISP.SYRIN IV ONE (18:00)
--- NOTE | 2018-10-02 18:16 | NUR ---
Pt out of ER for CT.
[2018-10-02] MEDS ORDERED: ONDANSETRON 4 MG/2 ML VIAL ONE (18:39)
[2018-10-02] MEDS ORDERED: HYDROMORPHONE 1 MG/1 ML DISP.SYRIN ONE (18:39)
[2018-10-02 18:43] LABS: BASOPHILS % (AUTO) 0.4 % (0.0-2.0); EOSINOPHILS # (AUTO) 2.4 K/uL (0.0-0.7); EOSINOPHILS % (AUTO) 24.3 % (0.0-7.0); HEMATOCRIT 38.1 % (31.2-41.9); HEMOGLOBIN 12.5 g/dL (10.9-14.3); LYMPHOCYTES # (AUTO) 2.1 K/uL (20.0-40.0); LYMPHOCYTES % (AUTO) 20.8 % (20.5-51.5); MEAN CORPUSCULAR HEMOGLOBIN 28.3 uug (24.7-32.8); MEAN CORPUSCULAR HGB CONC 33 g/dL (32.3-35.6); MEAN CORPUSCULAR VOLUME 86.4 fL (75.5-95.3); MONOCYTES # (AUTO) 1.1 K/uL (2.0-10.0); MONOCYTES % (AUTO) 11.5 % (0.0-11.0); NEUTROPHILS # (AUTO) 4.3 K/uL (1.8-8.9); PLATELET COUNT (AUTO) 275 K/uL (179-408); RED BLOOD CELL COUNT(AUTO) 4.41 MIL/uL (3.63-4.92)
[2018-10-02 18:54] LABS: CARBON DIOXIDE 31 mmol/L (21-32); CHLORIDE 102 mmol/L (98-107); CREATININE 0.7 mg/dL (0.6-1.3); GLUCOSE 91 mg/dL (74-106); POTASSIUM 4.3 mmol/L (3.5-5.1); UREA NITROGEN, BLOOD 10 mg/dL (7-18)
[2018-10-02 19:05] LABS: ALANINE AMINOTRANSFERASE 18 U/L (14-59); ALKALINE PHOSPHATASE 149 U/L (50-136); ASPARTATE AMINOTRANSFERASE 22 U/L (15-37); BILIRUBIN,DIRECT 0.1 mg/dL (0.0-0.2); BILIRUBIN,TOTAL 0.4 mg/dL (0.2-1.0); LIPASE 145 U/L (73-393); TOTAL PROTEIN, SERUM 6.3 g/dL (6.4-8.2)
[2018-10-02 19:32] LABS: BAND % (MANUAL) 3 % (0-10); EOSINOPHILS % (MANUAL) 23 % (0-8); LYMPHOCYTES % (MANUAL) 22 % (20-40); MONOCYTES % (MANUAL) 11 % (2-10); NEUTROPHILS % (MANUAL) 41 % (42-75)
--- NOTE | 2018-10-02 19:45 | NUR ---
PT RECEIVED FROM DAY SHIFT. AMBULATORY PENDING URINE. PAIN ABDOMINAL 4/10 INCISION PAIN. MD AT BEDSIDE FOR HISTORY AND PHYSICAL
--- NOTE | 2018-10-02 20:17 | NUR ---
Paged [facility] for panel call per Dr. Woodard request.
[2018-10-02 20:46] LABS: *BILIRUBIN,URIN NEGATIVE (NEGATIVE); *BLOOD, URINE NEGATIVE (NEGATIVE); *CLARITY,URINE CLOUDY (CLEAR); *COLOR,URINE YELLOW (YELLOW); *KETONES,URINE NEGATIVE (NEGATIVE); *UROBILINOGEN,URINE 0.2 E.U./dl (NORMAL); LEUKOCYTE ESTERASE ,URINE 1+ (NEGATIVE); NITRITE, URINE NEGATIVE (NEGATIVE); PH,URINE 7.5 (5.0-8.0); UGLUCOSE NEGATIVE (NEGATIVE)
[2018-10-02 20:54] LABS: MUCUS,URINE MODERATE /LPF (0-FEW); SQUAMOUS EPITHELIAL CELL,UR FEW /HPF (NONE SEEN); URINE AMORPHOUS PHOSPHATES MANY /HPF
--- NOTE | 2018-10-02 21:00 | NUR ---
Patient discharged to home in stable conditon. Written and verbal after care instructions given. Patient verbalizes understanding of instructions. PT CLEARED BY MD. HOME INSTRUCTIONS GIVEN. REINFORCED TO FOLLOW UP WITH PRIMARY MD TOMORROW.
[2018-10-02 21:03] VITALS: BP 110/70
== END 2018-10-02 21:04 | disposition home or self-care (01) ==
LOC: ER 16:36
DX: G89.18 Other acute postprocedural pain (principal); R10.9 Unspecified abdominal pain; F32.9 Major depressive disorder, single episode, unspecified; F41.9 Anxiety disorder, unspecified; I10 Essential (primary) hypertension; E78.5 Hyperlipidemia, unspecified; Z79.899 Other long term (current) drug therapy
CPT/HCPCS: 36415; 71045; 74176; 80048; 80076; 81000; 81001; 83690; 84484; 85025; 87086; 93005; 96374; 96375; 99284; J1170; J2405; 70030-TC; A4663

== ENCOUNTER 2018-10-06 07:53 | Emergency (ER) | payer MEDICARE, BC ==
[~2018-10-06] VITALS: Ht 165.1 cm; Wt 49.4 kg
[~2018-10-06 07:53] MED LIST changes: +DULO60CA45 PO; -NITR100C11 PO
--- NOTE | 2018-10-06 08:25 | NUR ---
PATIENT WAS MSE BY DR BRITTON IN ROOM 04B.[facility] A & O X3.
[2018-10-06] MEDS ORDERED: OXYCODONE HCL 5 MG TABLET PO ONE (08:30)
[2018-10-06] MEDS ORDERED: OXYCODONE HCL 5 MG TABLET ONE (08:43)
[2018-10-06 09:00] LABS: BASOPHILS # (AUTO) 0.1 K/uL (0.0-8.0); BASOPHILS % (AUTO) 0.6 % (0.0-2.0); EOSINOPHILS # (AUTO) 2.3 K/uL (0.0-0.7); HEMATOCRIT 39.9 % (31.2-41.9); HEMOGLOBIN 13.2 g/dL (10.9-14.3); LYMPHOCYTES # (AUTO) 2.1 K/uL (20.0-40.0); LYMPHOCYTES % (AUTO) 23.4 % (20.5-51.5); MEAN CORPUSCULAR HEMOGLOBIN 28.6 uug (24.7-32.8); MEAN CORPUSCULAR HGB CONC 33 g/dL (32.3-35.6); MEAN CORPUSCULAR VOLUME 86.8 fL (75.5-95.3); MONOCYTES # (AUTO) 0.6 K/uL (2.0-10.0); NEUTROPHILS # (AUTO) 3.8 K/uL (1.8-8.9); NEUTROPHILS % (AUTO) 43.1 % (38.5-71.5); PLATELET COUNT (AUTO) 284 K/uL (179-408); WHITE BLOOD COUNT (AUTO) 8.8 K/uL (3.8-11.8)
[2018-10-06 09:02] LABS: CARBON DIOXIDE 27 mmol/L (21-32); CHLORIDE 102 mmol/L (98-107); CREATININE 0.8 mg/dL (0.6-1.3); GLUCOSE 128 mg/dL (74-106); POTASSIUM 3.7 mmol/L (3.5-5.1); UREA NITROGEN, BLOOD 6 mg/dL (7-18)
[2018-10-06 09:10] LABS: ALANINE AMINOTRANSFERASE 24 U/L (14-59); ALKALINE PHOSPHATASE 202 U/L (50-136); ASPARTATE AMINOTRANSFERASE 22 U/L (15-37); BILIRUBIN,DIRECT 0.1 mg/dL (0.0-0.2); BILIRUBIN,TOTAL 0.4 mg/dL (0.2-1.0); LIPASE 130 U/L (73-393); TOTAL PROTEIN, SERUM 7.1 g/dL (6.4-8.2)
[2018-10-06 09:19] LABS: EOSINOPHILS % (AUTO) 25.9 % (0.0-7.0)
[2018-10-06 09:56] LABS: EOSINOPHILS % (MANUAL) 23 % (0-8); LYMPHOCYTES % (MANUAL) 30 % (20-40); MONOCYTES % (MANUAL) 6 % (2-10); NEUTROPHILS % (MANUAL) 41 % (42-75)
--- NOTE | 2018-10-06 10:12 | NUR ---
DR BRITTON MADE PATIENT AWARE OF TEST RESULTS WILL DC HOME.
--- NOTE | 2018-10-06 10:15 | NUR ---
Patient discharged to home in stable conditon. Written and verbal after care instructions given. Patient verbalizes understanding of instructions.
[2018-10-06 10:22] VITALS: BP 110/69
== END 2018-10-06 10:25 | disposition home or self-care (01) ==
LOC: ER 07:53
DX: G89.18 Other acute postprocedural pain (principal); R10.11 Right upper quadrant pain; F32.9 Major depressive disorder, single episode, unspecified; F41.9 Anxiety disorder, unspecified; Z79.899 Other long term (current) drug therapy
CPT/HCPCS: 36415; 70030-TC; 83690; 85025; 93005; A4663

== ENCOUNTER 2018-11-09 09:46 | Emergency (ER) | payer MEDICARE, BC ==
[~2018-11-09] VITALS: Ht 165.1 cm; Wt 49.9 kg
--- NOTE | 2018-11-09 10:06 | NUR ---
Dr Armando at the bedside for MSE.
[2018-11-09] MEDS ORDERED: ONDANSETRON 4 MG/2 ML VIAL IV ONE (10:15)
[2018-11-09] MEDS ORDERED: HYDROMORPHONE 1 MG/1 ML DISP.SYRIN IV ONE ×2 (10:15→13:45)
[2018-11-09] MEDS ORDERED: IV NORMAL SALINE 500 ML BAG IV ONE (10:15)
[2018-11-09] MEDS ORDERED: ONDANSETRON 4 MG/2 ML VIAL ONE (10:20)
[2018-11-09] MEDS ORDERED: HYDROMORPHONE 1 MG/1 ML DISP.SYRIN ONE ×2 (10:20→13:48)
[2018-11-09 10:24] LABS: BASOPHILS # (AUTO) 0.1 K/uL (0.0-8.0); EOSINOPHILS # (AUTO) 1.5 K/uL (0.0-0.7); EOSINOPHILS % (AUTO) 15.5 % (0.0-7.0); HEMATOCRIT 42.3 % (31.2-41.9); HEMOGLOBIN 13.8 g/dL (10.9-14.3); LYMPHOCYTES # (AUTO) 2.4 K/uL (20.0-40.0); LYMPHOCYTES % (AUTO) 24.2 % (20.5-51.5); MEAN CORPUSCULAR HEMOGLOBIN 28.8 uug (24.7-32.8); MEAN CORPUSCULAR HGB CONC 33 g/dL (32.3-35.6); MONOCYTES # (AUTO) 0.9 K/uL (2.0-10.0); MONOCYTES % (AUTO) 9.5 % (0.0-11.0); NEUTROPHILS # (AUTO) 4.9 K/uL (1.8-8.9); NEUTROPHILS % (AUTO) 49.8 % (38.5-71.5); PLATELET COUNT (AUTO) 236 K/uL (179-408); WHITE BLOOD COUNT (AUTO) 9.9 K/uL (3.8-11.8)
[2018-11-09] MEDS ORDERED: BARIUM SULFATE 450 ML ORAL.SUSP ONE (10:27)
[2018-11-09] MEDS ORDERED: IOHEXOL 300MG/ML 100 ML INFUS..BTL ONE (10:27)
[2018-11-09] MEDS ORDERED: SWABABLE VALVE TRANSFER SET EA MC ONE (10:27)
[2018-11-09] MEDS ORDERED: IV NORMAL SALINE 250 ML IV ONE (10:27)
[2018-11-09] MEDS ORDERED: DIATR MEGLU/DIATRIZOATE SODIUM 30 ML SOLUTION ONE (10:27)
[2018-11-09 10:28] LABS: CARBON DIOXIDE 26 mmol/L (21-32); CHLORIDE 106 mmol/L (98-107); CREATININE 0.7 mg/dL (0.6-1.3); GLUCOSE 96 mg/dL (74-106); POTASSIUM 4.3 mmol/L (3.5-5.1); UREA NITROGEN, BLOOD 13 mg/dL (7-18)
[2018-11-09 10:34] LABS: ALANINE AMINOTRANSFERASE 10 U/L (14-59); ALKALINE PHOSPHATASE 110 U/L (50-136); ASPARTATE AMINOTRANSFERASE 15 U/L (15-37); BILIRUBIN,DIRECT 0.1 mg/dL (0.0-0.2); BILIRUBIN,TOTAL 0.5 mg/dL (0.2-1.0); LIPASE 118 U/L (73-393); TOTAL PROTEIN, SERUM 7.5 g/dL (6.4-8.2)
--- NOTE | 2018-11-09 10:40 | NUR ---
Pt refused oral contract for CT, DR Armando aware. Pt agreed to have IV contrast Ct. Pt signed consent of Iv contrast.
--- NOTE | 2018-11-09 11:30 | NUR ---
Pt out of Er for Ct.
--- NOTE | 2018-11-09 11:39 | NUR ---
IV line on Lt fa infiltrated, remove HL and placed warm pack on the site. Restart another line on Rt FA angio #20.
[2018-11-09 14:02] VITALS: BP 106/74
--- NOTE | 2018-11-09 14:02 | NUR ---
IV removed. Catheter intact and site benign. Pressure and 4x4 gauze applied to site. No bleeding noted.
--- NOTE | 2018-11-09 14:06 | NUR ---
Patient discharged to home in stable conditon. Written and verbal after care instructions given. Patient verbalizes understanding of instructions.
== END 2018-11-09 14:09 | disposition home or self-care (01) ==
LOC: ER 09:46
DX: R10.84 Generalized abdominal pain (principal); F32.9 Major depressive disorder, single episode, unspecified; F41.9 Anxiety disorder, unspecified; Z79.899 Other long term (current) drug therapy
CPT/HCPCS: 36415; 74177; 80048; 80076; 83690; 85025; 85730; 93005; 96374; 96375; 96376; 99284; J1170 ×2; J2405; Q9967; A4663; J7040; J7050; Q9951; Q9963

== ENCOUNTER 2019-02-01 10:55 | Emergency (ER) | payer MEDICARE, BC ==
[~2019-02-01] VITALS: Ht 165.1 cm; Wt 50.8 kg
[2019-02-01] MEDS ORDERED: BUDE3CAP15 PO (11:05)
[2019-02-01] MEDS ORDERED: LEVO25TA9 PO (11:05)
[2019-02-01] MEDS ORDERED: OXYC10TA49 PO (11:10)
--- NOTE | 2019-02-01 11:25 | NUR ---
Patient ambulated with stable gait. Speech clear, speaks in complete sentences. A/Ox4. No acute neuro deficits. Patient came for c/o sob since this am. Lung sounds clear bilaterally, denies any cp. Denies any n/v/d. Patient in bed at lowest position, sr upx2, call light within reach. Fall precautions implemented per protocol. Patient accompanied by caregiver at bedside.
--- NOTE | 2019-02-01 11:35 | NUR ---
ERMD at bedside for MSE
[2019-02-01] MEDS ORDERED: IV NORMAL SALINE 250 ML IV ONE (12:02)
[2019-02-01] MEDS ORDERED: IOHEXOL 350 100 ML INFUS..BTL ONE (12:02)
[2019-02-01] MEDS ORDERED: SWABABLE VALVE TRANSFER SET EA MC ONE (12:02)
[2019-02-01 12:18] LABS: CREATININE 0.7 mg/dL (0.6-1.3); POTASSIUM 4.5 mmol/L (3.5-5.1)
--- NOTE | 2019-02-01 12:29 | NUR ---
Patient transported to CT in stable condition.
[2019-02-01 12:31] LABS: BILIRUBIN,TOTAL 0.5 mg/dL (0.2-1.0); TOTAL PROTEIN, SERUM 7.8 g/dL (6.4-8.2)
[2019-02-01 13:02] LABS: BASOPHILS % (AUTO) 0.5 % (0.0-2.0); EOSINOPHILS # (AUTO) 0.5 K/uL (0.0-0.7); EOSINOPHILS % (AUTO) 7.1 % (0.0-7.0); HEMATOCRIT 43.1 % (31.2-41.9); HEMOGLOBIN 14.1 g/dL (10.9-14.3); LYMPHOCYTES # (AUTO) 2.2 K/uL (20.0-40.0); LYMPHOCYTES % (AUTO) 30.7 % (20.5-51.5); MEAN CORPUSCULAR HEMOGLOBIN 28.8 uug (24.7-32.8); MEAN CORPUSCULAR HGB CONC 33 g/dL (32.3-35.6); MEAN CORPUSCULAR VOLUME 88.1 fL (75.5-95.3); MONOCYTES # (AUTO) 0.9 K/uL (2.0-10.0); NEUTROPHILS # (AUTO) 3.5 K/uL (1.8-8.9); NEUTROPHILS % (AUTO) 49.7 % (38.5-71.5); PLATELET COUNT (AUTO) 262 K/uL (179-408); RED BLOOD CELL COUNT(AUTO) 4.89 MIL/uL (3.63-4.92); WHITE BLOOD COUNT (AUTO) 7.1 K/uL (3.8-11.8)
[2019-02-01] MEDS ORDERED: CEFTRIAXONE /D5W 50ML IVPB **ER PYXIS IV ONE (13:18)
[2019-02-01] MEDS ORDERED: CEFTRIAXONE 1 G in IV DEXTROSE 5% 50 ML IV ONE (13:30)
--- NOTE | 2019-02-01 13:48 | NUR ---
MICHELLED on the line with Dr. Tran regarding surg consult.
--- NOTE | 2019-02-01 14:04 | NUR ---
Patient discharged to home in stable conditon. Written and verbal after care instructions given. Patient verbalizes understanding of instructions. Patient ambulated with stable gait.
[2019-02-01 14:05] VITALS: BP 132/72
== END 2019-02-01 14:05 | disposition home or self-care (01) ==
LOC: ER 10:55
DX: J18.9 Pneumonia, unspecified organism (principal); K76.89 Other specified diseases of liver; T85.49XA Other mechanical complication of breast prosthesis and implant, initial encounter; F41.9 Anxiety disorder, unspecified; F32.9 Major depressive disorder, single episode, unspecified; Z79.899 Other long term (current) drug therapy
CPT/HCPCS: 36415; 71275; 80053; 83690; 83880; 84484; 85025; 93005 ×2; 96365; 99284; J0696; Q9967; 70030-TC; A4663; J7050

== ENCOUNTER 2019-02-26 07:14 | Emergency (ER) | payer MEDICARE, BC ==
[~2019-02-26] VITALS: Ht 165.1 cm; Wt 50.8 kg
[~2019-02-26 07:14] MED LIST changes: +BUDE3CAP15 PO; -ENOX40DI SQ; -HYDR-3326 PO; +LEVO25TA9 PO; +OXYC10TA49 PO; -POTA20TA83 PO
--- NOTE | 2019-02-26 07:25 | NUR ---
Patient A&O x4. ambulating with steady gait. c/o N/V and SOB. patient states that she is withdrawing from opiate use. Per patient, she took 2 pills of oxycodone 10mg [employer]. Patient breathing even and unlabored. Denies any / GI distress. family at bedside. Speech is clear and able to make needs known / follow commands. able to move extremities freely. no episodes of vomiting noted.
--- NOTE | 2019-02-26 07:33 | NUR ---
Dr. Jenkins at bedside for MSE
[2019-02-26 08:03] LABS: BASOPHILS # (AUTO) 0.1 K/uL (0.0-8.0); BASOPHILS % (AUTO) 0.8 % (0.0-2.0); EOSINOPHILS # (AUTO) 0.2 K/uL (0.0-0.7); EOSINOPHILS % (AUTO) 2.7 % (0.0-7.0); HEMATOCRIT 43.2 % (31.2-41.9); HEMOGLOBIN 13.8 g/dL (10.9-14.3); LYMPHOCYTES # (AUTO) 2.8 K/uL (20.0-40.0); MEAN CORPUSCULAR HGB CONC 32 g/dL (32.3-35.6); MONOCYTES # (AUTO) 0.9 K/uL (2.0-10.0); MONOCYTES % (AUTO) 11.4 % (0.0-11.0); NEUTROPHILS % (AUTO) 50.1 % (38.5-71.5); PLATELET COUNT (AUTO) 253 K/uL (179-408); RED BLOOD CELL COUNT(AUTO) 4.91 MIL/uL (3.63-4.92); WHITE BLOOD COUNT (AUTO) 7.9 K/uL (3.8-11.8)
[2019-02-26] MEDS ORDERED: MORPHINE SULFATE 4 MG/1 ML DISP.SYRIN ONE (08:07)
[2019-02-26] MEDS ORDERED: ONDANSETRON 4 MG/2 ML VIAL ONE (08:08)
[2019-02-26] MEDS: ONDANSETRON 4 MG/2 ML VIAL IV ONE (08:10)
[2019-02-26] MEDS: IV NORMAL SALINE 500 ML BAG IV ONE (08:10)
[2019-02-26] MEDS: MORPHINE SULFATE 2 MG/1 ML DISP.SYRIN IV ONE (08:10)
[2019-02-26 08:12] LABS: POTASSIUM 3.9 mmol/L (3.5-5.1)
[2019-02-26 08:24] LABS: BILIRUBIN,DIRECT 0.1 mg/dL (0.0-0.2); BILIRUBIN,TOTAL 0.3 mg/dL (0.2-1.0); TOTAL PROTEIN, SERUM 7.5 g/dL (6.4-8.2)
[2019-02-26] MEDS ORDERED: LORAZEPAM 2 MG/1 ML VIAL ONE (08:29)
[2019-02-26] MEDS: LORAZEPAM 2 MG/1 ML VIAL IV ONE (08:32)
--- NOTE | 2019-02-26 09:18 | NUR ---
IV removed. Catheter intact and site benign. Pressure and 4x4 gauze applied to site. No bleeding noted. Patient discharged to home in stable conditon. Written and verbal after care instructions given. Patient verbalizes understanding of instructions. Patient ambulating with steady gait. caregiver at bedside to take patient home
[2019-02-26 09:40] VITALS: BP 153/87
== END 2019-02-26 09:18 | disposition home or self-care (01) ==
LOC: ER 07:14
DX: F11.23 Opioid dependence with withdrawal (principal); F11.20 Opioid dependence, uncomplicated; F41.9 Anxiety disorder, unspecified; F32.9 Major depressive disorder, single episode, unspecified; Z79.899 Other long term (current) drug therapy
CPT/HCPCS: 36415; 71045; 80048; 80076; 83690; 84484; 85025; 93005; 96374; 96375; 99284; J2060; J2270; J2405; 70030-TC; A4663; J7040

== ENCOUNTER 2020-04-22 07:58 | Inpatient (IN) | payer MEDICARE, OTHER ==
[~2020-04-22] VITALS: Ht 160 cm; Wt 56.7 kg
[2020-04-22] MEDS ORDERED: SWABABLE VALVE TRANSFER SET EA MC ONE (08:29)
[2020-04-22] MEDS ORDERED: IOHEXOL 350 100 ML INFUS..BTL ONE (08:30)
[2020-04-22] MEDS ORDERED: LORAZEPAM 0.5 MG TABLET PO ONE (08:30)
[2020-04-22] MEDS ORDERED: IV NORMAL SALINE 250 ML IV ONE (08:30)
[2020-04-22] MEDS ORDERED: LORAZEPAM 0.5 MG TABLET ONE (08:41)
[2020-04-22 09:01] LABS: BASOPHILS # (AUTO) 0.1 K/uL (0.0-8.0); BASOPHILS % (AUTO) 0.3 % (0.0-2.0); EOSINOPHILS # (AUTO) 0.1 K/uL (0.0-0.7); EOSINOPHILS % (AUTO) 0.4 % (0.0-7.0); HEMATOCRIT 47.7 % (31.2-41.9); HEMOGLOBIN 15.6 g/dL (10.9-14.3); LYMPHOCYTES # (AUTO) 0.9 K/uL (20.0-40.0); LYMPHOCYTES % (AUTO) 4.1 % (20.5-51.5); MEAN CORPUSCULAR HGB CONC 33 g/dL (32.3-35.6); MEAN CORPUSCULAR VOLUME 88.5 fL (75.5-95.3); MONOCYTES # (AUTO) 1.6 K/uL (2.0-10.0); MONOCYTES % (AUTO) 7.2 % (0.0-11.0); NEUTROPHILS # (AUTO) 20.2 K/uL (1.8-8.9); PLATELET COUNT (AUTO) 294 K/uL (179-408); RED BLOOD CELL COUNT(AUTO) 5.38 MIL/uL (3.63-4.92); WHITE BLOOD COUNT (AUTO) 22.9 K/uL (3.8-11.8)
[2020-04-22 09:12] LABS: CREATININE 0.8 mg/dL (0.6-1.3); POTASSIUM 3.8 mmol/L (3.5-5.1)
[2020-04-22 09:26] LABS: BILIRUBIN,DIRECT 0.2 mg/dL (0.0-0.2); BILIRUBIN,TOTAL 0.9 mg/dL (0.2-1.0); TOTAL PROTEIN, SERUM 7.5 g/dL (6.4-8.2)
[2020-04-22] MEDS ORDERED: ENOXAPARIN SODIUM 60 MG/0.6 ML DISP.SYRIN SQ ONE ×2 (10:15→10:20)
[2020-04-22] MEDS ORDERED: CEFTRIAXONE 1 G in IV DEXTROSE 5% 50 ML IV ONE (10:15)
[2020-04-22] MEDS ORDERED: MORPHINE SULFATE 2 MG/1 ML DISP.SYRIN IV ONE ×2 (10:15→11:30)
[2020-04-22] MEDS ORDERED: NITR100C11 PO (10:20)
[2020-04-22] MEDS ORDERED: OLAN5TAB3 PO (10:20)
[2020-04-22] MEDS ORDERED: VENL75TA4 PO (10:20)
[2020-04-22] MEDS ORDERED: AMLO2.5T4 PO (10:20)
[2020-04-22] MEDS ORDERED: MORPHINE SULFATE 2 MG/1 ML DISP.SYRIN ONE ×2 (10:21→11:33)
[2020-04-22 10:23] LABS: *BILIRUBIN,URIN 1+ (NEGATIVE); *BLOOD, URINE 1+ (NEGATIVE); *CLARITY,URINE CLEAR (CLEAR); *COLOR,URINE AMBER (YELLOW); *KETONES,URINE 1+ (NEGATIVE); LEUKOCYTE ESTERASE ,URINE 3+ (NEGATIVE); NITRITE, URINE POSITIVE (NEGATIVE); UGLUCOSE NEGATIVE (NEGATIVE)
[2020-04-22] MEDS ORDERED: CEFTRIAXONE /D5W 50ML IVPB **ER PYXIS IV ONE (10:29)
[2020-04-22 13:09] VITALS: BP 138/67
[2020-04-22] MEDS ORDERED: HYDROCODONE/APAP 5-325MG TABLET PO PRN (13:15)
[2020-04-22] MEDS ORDERED: ONDANSETRON 4 MG/2 ML VIAL IV PRN (13:15)
[2020-04-22] MEDS ORDERED: TEMAZEPAM 15 MG CAPSULE PO PRN (13:15)
[2020-04-22] MEDS ORDERED: ACETAMINOPHEN 325 MG TABLET PO PRN (13:15)
[2020-04-22 14:42] VITALS: BP 136/69
[2020-04-22 15:11] LABS: BACTERIA,URINE MODERATE /HPF (NONE SEEN); SQUAMOUS EPITHELIAL CELL,UR FEW /HPF (NONE SEEN); URINE AMORPHOUS URATE MANY /HPF; WBC,URINE 20-50 /HPF (0-3)
[2020-04-22] MEDS: LORAZEPAM 2 MG/1 ML VIAL IV PRN ×2 (15:11→22:48)
[2020-04-22] MEDS: MORPHINE SULFATE 2 MG/1 ML DISP.SYRIN IV PRN ×2 (15:12→22:50)
[2020-04-22 16:40] VITALS: BP 129/71
[2020-04-22 20:20] VITALS: BP 156/75
[2020-04-22] MEDS: ENOXAPARIN SODIUM 60 MG/0.6 ML DISP.SYRIN SQ SCH (20:25)
[2020-04-23 00:20] VITALS: BP 144/80
[2020-04-23 04:20] VITALS: BP 140/75
[2020-04-23] MEDS: MORPHINE SULFATE 2 MG/1 ML DISP.SYRIN IV PRN (04:39)
[2020-04-23] MEDS: LORAZEPAM 2 MG/1 ML VIAL IV PRN ×2 (05:56→09:11)
[2020-04-23] MEDS ORDERED: PANTOPRAZOLE SODIUM 40 MG TABLET.DR PO SCH (07:00)
[2020-04-23] MEDS ORDERED: LEVOTHYROXINE SODIUM 25 MCG TABLET PO SCH (07:00)
[2020-04-23 07:27] LABS: BASOPHILS # (AUTO) 0.1 K/uL (0.0-8.0); BASOPHILS % (AUTO) 0.7 % (0.0-2.0); EOSINOPHILS # (AUTO) 0.2 K/uL (0.0-0.7); EOSINOPHILS % (AUTO) 2.1 % (0.0-7.0); HEMATOCRIT 46.3 % (31.2-41.9); HEMOGLOBIN 15.1 g/dL (10.9-14.3); LYMPHOCYTES # (AUTO) 2.3 K/uL (20.0-40.0); LYMPHOCYTES % (AUTO) 22.3 % (20.5-51.5); MEAN CORPUSCULAR HEMOGLOBIN 28.9 uug (24.7-32.8); MEAN CORPUSCULAR HGB CONC 33 g/dL (32.3-35.6); MEAN CORPUSCULAR VOLUME 88.5 fL (75.5-95.3); MONOCYTES % (AUTO) 9.5 % (0.0-11.0); NEUTROPHILS # (AUTO) 6.6 K/uL (1.8-8.9); NEUTROPHILS % (AUTO) 65.4 % (38.5-71.5); PLATELET COUNT (AUTO) 265 K/uL (179-408); RED BLOOD CELL COUNT(AUTO) 5.23 MIL/uL (3.63-4.92); WHITE BLOOD COUNT (AUTO) 10.2 K/uL (3.8-11.8)
[2020-04-23 07:47] LABS: BILIRUBIN,TOTAL 0.5 mg/dL (0.2-1.0); CREATININE 0.8 mg/dL (0.6-1.3); MAGNESIUM 2.2 mg/dL (1.8-2.4); PHOSPHOROUS 2.8 mg/dL (2.5-4.9); POTASSIUM 3.8 mmol/L (3.5-5.1)
[2020-04-23 08:54] LABS: THYROID STIMULATING HORMONE 1.449 mIU/mL (0.358-3.740)
[2020-04-23] MEDS ORDERED: VENLAFAXINE XR 37.5 MG CAP.SR.24H PO SCH (09:00)
[2020-04-23] MEDS ORDERED: NEOMY/BACITRAC/POLYMI OINT 28.35 GM TUBE TOP SCH (09:00)
[2020-04-23] MEDS ORDERED: OLANZAPINE 5 MG TABLET PO SCH (09:00)
[2020-04-23] MEDS: CEFTRIAXONE 1 G in IV DEXTROSE 5% 50 ML IV SCH ×3 (09:17→10:00)
[2020-04-23] MEDS: ENOXAPARIN SODIUM 60 MG/0.6 ML DISP.SYRIN SQ SCH (09:17)
[2020-04-23] MEDS ORDERED: OMEGA-3 FATTY ACIDS/FISH OIL CAPSULE PO SCH (09:30)
[2020-04-23 12:00] VITALS: BP 132/89
[2020-04-23] MEDS ORDERED: ATORVASTATIN 20 MG TABLET PO SCH (21:00)
== END 2020-04-23 13:25 | disposition left against medical advice (07) | DRG 871 ==
LOC: ER 08:00 → TELE3 11:46
PROVIDERS: ADMIT Internal Medicine; ATTEND Internal Medicine
DX: A41.9 Sepsis, unspecified organism (principal); I26.99 Other pulmonary embolism without acute cor pulmonale; J18.9 Pneumonia, unspecified organism; N39.0 Urinary tract infection, site not specified; D68.69 Other thrombophilia; E03.9 Hypothyroidism, unspecified; F41.9 Anxiety disorder, unspecified; Z87.440 Personal history of urinary (tract) infections; E78.5 Hyperlipidemia, unspecified; F32.9 Major depressive disorder, single episode, unspecified; M19.90 Unspecified osteoarthritis, unspecified site; Z86.73 Personal history of transient ischemic attack (TIA), and cerebral infarction without residual deficits; F19.11 Other psychoactive substance abuse, in remission; Z74.09 Other reduced mobility; R73.9 Hyperglycemia, unspecified; Z20.822 Contact with and (suspected) exposure to COVID-19; T85.898A Other specified complication of other internal prosthetic devices, implants and grafts, initial encounter; Y83.8 Other surgical procedures as the cause of abnormal reaction of the patient, or of later complication, without mention of misadventure at the time of the procedure; Y92.009 Unspecified place in unspecified non-institutional (private) residence as the place of occurrence of the external cause; K83.8 Other specified diseases of biliary tract; K86.89 Other specified diseases of pancreas
CPT/HCPCS: 36415; 70030-TC; 71045; 71275; 83605; 83735; 84100; 84443; 85025; 85730; 87040; 87086; 93005; 93307; A4663; G0378; J0696; J1650; J2060; J2270; J7030; J7050; J7060; Q9967; U0003

== ENCOUNTER 2020-04-25 09:26 | Emergency (ER) | payer MEDICARE, OTHER ==
[~2020-04-25] VITALS: Ht 160 cm; Wt 56.7 kg
[~2020-04-25 09:26] MED LIST changes: +AMLO2.5T4 PO; -DULO60CA45 PO; -FAMO20TA8 PO; +NITR100C11 PO; +OLAN5TAB3 PO; -OXYC10TA49 PO; +VENL75TA4 PO
[2020-04-25] MEDS ORDERED: APIX5TAB4 PO ×2 (09:58→10:11)
[2020-04-25] MEDS ORDERED: APIXABAN 2.5 MG TABLET PO SCH (10:00)
--- NOTE | 2020-04-25 10:28 | NUR ---
PT WAS EVALUATED BY DR CEDILLO. PT WAS D/C'd TO HOME D/C INSTRUCTIONS GIVEN TO THE PT BY DR CEDILLO.
[2020-04-25 10:30] VITALS: BP 132/71
== END 2020-04-25 10:35 | disposition home or self-care (01) ==
LOC: ER 09:26
DX: I26.99 Other pulmonary embolism without acute cor pulmonale (principal); Z76.0 Encounter for issue of repeat prescription; F41.9 Anxiety disorder, unspecified; F32.9 Major depressive disorder, single episode, unspecified; R03.0 Elevated blood-pressure reading, without diagnosis of hypertension
CPT/HCPCS: A4663

== ENCOUNTER 2020-06-06 09:43 | Emergency (ER) | payer MEDICARE, OTHER ==
[~2020-06-06] VITALS: Ht 162.6 cm; Wt 56.7 kg
[~2020-06-06 09:43] MED LIST changes: +APIX5TAB4 PO
--- NOTE | 2020-06-06 09:47 | NUR ---
Patient brought in by caregiver for lower abdominal pain, MD at bedside for assessment
[2020-06-06] MEDS ORDERED: MORPHINE SULFATE 4 MG/1 ML DISP.SYRIN ONE ×3 (10:29→12:34)
[2020-06-06] MEDS ORDERED: MORPHINE SULFATE 4 MG/1 ML DISP.SYRIN IV ONE ×2 (10:30→12:30)
[2020-06-06] MEDS ORDERED: ONDANSETRON 4 MG/2 ML VIAL IV ONE (10:30)
[2020-06-06 10:31] LABS: BASOPHILS # (AUTO) 0.1 K/uL (0.0-8.0); BASOPHILS % (AUTO) 0.8 % (0.0-2.0); EOSINOPHILS # (AUTO) 0.2 K/uL (0.0-0.7); EOSINOPHILS % (AUTO) 2.2 % (0.0-7.0); HEMATOCRIT 42.5 % (31.2-41.9); HEMOGLOBIN 14.3 g/dL (10.9-14.3); LYMPHOCYTES # (AUTO) 2.3 K/uL (20.0-40.0); LYMPHOCYTES % (AUTO) 24.9 % (20.5-51.5); MEAN CORPUSCULAR HEMOGLOBIN 29.3 uug (24.7-32.8); MEAN CORPUSCULAR HGB CONC 34 g/dL (32.3-35.6); MEAN CORPUSCULAR VOLUME 87.3 fL (75.5-95.3); MONOCYTES # (AUTO) 1.1 K/uL (2.0-10.0); MONOCYTES % (AUTO) 12.2 % (0.0-11.0); NEUTROPHILS # (AUTO) 5.4 K/uL (1.8-8.9); NEUTROPHILS % (AUTO) 59.9 % (38.5-71.5); PLATELET COUNT (AUTO) 233 K/uL (179-408); RED BLOOD CELL COUNT(AUTO) 4.87 MIL/uL (3.63-4.92); WHITE BLOOD COUNT (AUTO) 9.1 K/uL (3.8-11.8)
--- NOTE | 2020-06-06 10:35 | NUR ---
Patient left to Radiology department for CT of Abdomen
[2020-06-06 10:38] LABS: CREATININE 0.8 mg/dL (0.6-1.3); POTASSIUM 4.3 mmol/L (3.5-5.1)
[2020-06-06] MEDS ORDERED: ONDANSETRON 4 MG/2 ML VIAL ONE (10:38)
[2020-06-06 10:43] LABS: BILIRUBIN,DIRECT 0.1 mg/dL (0.0-0.2); BILIRUBIN,TOTAL 0.6 mg/dL (0.2-1.0); TOTAL PROTEIN, SERUM 6.5 g/dL (6.4-8.2)
--- NOTE | 2020-06-06 10:50 | NUR ---
Patient returned from Radiology department at this time
[2020-06-06] MEDS ORDERED: IOHEXOL 350 100 ML INFUS..BTL ONE (11:09)
[2020-06-06] MEDS ORDERED: SWABABLE VALVE TRANSFER SET EA MC ONE (11:09)
[2020-06-06] MEDS ORDERED: IV NORMAL SALINE 250 ML IV ONE (11:09)
[2020-06-06] MEDS ORDERED: FAMOTIDINE. 20 MG/2 ML VIAL IV ONE ×2 (11:15→11:24)
[2020-06-06] MEDS ORDERED: IV NORMAL SALINE 500 ML BAG IV ONE (11:15)
[2020-06-06] MEDS ORDERED: LIDOCAINE VISCUS 2% 15 ML UDC MM ONE (11:15)
[2020-06-06] MEDS ORDERED: MAG HYDROX/AL HYDROX/SIMETH 30 ML LIQUID UDC PO ONE (11:15)
--- NOTE | 2020-06-06 11:22 | NUR ---
Patient refused Lidocaine Viscous and maalox
[2020-06-06] MEDS ORDERED: MAG HYDROX/AL HYDROX/SIMETH 30 ML LIQUID UDC ONE (11:23)
--- NOTE | 2020-06-06 11:23 | NUR ---
Patient taken to to radiology for CTA
[2020-06-06] MEDS ORDERED: LIDOCAINE VISCUS 2% 15 ML UDC ONE (11:24)
--- NOTE | 2020-06-06 11:38 | NUR ---
Patient returned from Radiology department at this time
--- NOTE | 2020-06-06 12:11 | NUR ---
Patient wishes to go MD Juan Carlos MARTINEZ Explained to the patient about the risks of leaving without being treated, Patient still wishes to leave, [facility] waiver signed by patient
[2020-06-06] MEDS ORDERED: FAMO-132 PO (12:43)
[2020-06-06] MEDS ORDERED: ONDA4TAB5 PO (12:43)
--- NOTE | 2020-06-06 12:53 | NUR ---
Patient does not wish to proceed with medical care recommended by Dr. Rangel. Patient given information related to possible complications, up to and including , which could occur as a result of leaving the hospital at this time. Patient verbalizes understanding of risks involved due to leaving against medical advice. Patient has signed AMA form.
== END 2020-06-06 12:50 | disposition left against medical advice (07) ==
LOC: ER 09:43
DX: R10.10 Upper abdominal pain, unspecified (principal); I26.99 Other pulmonary embolism without acute cor pulmonale; D25.9 Leiomyoma of uterus, unspecified; K57.90 Diverticulosis of intestine, part unspecified, without perforation or abscess without bleeding; N28.1 Cyst of kidney, acquired; K86.89 Other specified diseases of pancreas; K76.9 Liver disease, unspecified; E78.5 Hyperlipidemia, unspecified; I10 Essential (primary) hypertension; E03.9 Hypothyroidism, unspecified; M19.90 Unspecified osteoarthritis, unspecified site; D68.59 Other primary thrombophilia; Z79.890 Hormone replacement therapy; F32.9 Major depressive disorder, single episode, unspecified; F41.9 Anxiety disorder, unspecified; Z79.899 Other long term (current) drug therapy; J98.11 Atelectasis
CPT/HCPCS: 71045; 71275; 74176; 80048; 80076; 83690; 84484; 85025; 93005; 96361; 96374; 96375; 96376; 99285; J2270 ×2; J2405; J3490; Q9967; 70030-TC; J7050

== ENCOUNTER 2020-06-19 07:02 | Inpatient (IN) | payer MEDICARE, OTHER ==
[~2020-06-19] VITALS: Ht 154.9 cm; Wt 56.8 kg
[~2020-06-19 07:02] MED LIST changes: +FAMO-132 PO
[2020-06-19] MEDS ORDERED: LORAZEPAM 0.5 MG TABLET PO ONE ×2 (07:15→09:45)
[2020-06-19] MEDS ORDERED: LORAZEPAM 0.5 MG TABLET ONE ×2 (07:20→09:45)
[2020-06-19 08:00] LABS: BASOPHILS # (AUTO) 0.1 K/uL (0.0-8.0); BASOPHILS % (AUTO) 0.8 % (0.0-2.0); EOSINOPHILS # (AUTO) 0.1 K/uL (0.0-0.7); HEMATOCRIT 48.9 % (31.2-41.9); HEMOGLOBIN 16.4 g/dL (10.9-14.3); LYMPHOCYTES # (AUTO) 2.3 K/uL (20.0-40.0); MEAN CORPUSCULAR HGB CONC 34 g/dL (32.3-35.6); MEAN CORPUSCULAR VOLUME 89.4 fL (75.5-95.3); MONOCYTES # (AUTO) 1.1 K/uL (2.0-10.0); MONOCYTES % (AUTO) 12.1 % (0.0-11.0); NEUTROPHILS # (AUTO) 5.6 K/uL (1.8-8.9); NEUTROPHILS % (AUTO) 61.1 % (38.5-71.5); PLATELET COUNT (AUTO) 285 K/uL (179-408); RED BLOOD CELL COUNT(AUTO) 5.46 MIL/uL (3.63-4.92); WHITE BLOOD COUNT (AUTO) 9.1 K/uL (3.8-11.8)
[2020-06-19 08:10] LABS: BILIRUBIN,DIRECT 0.2 mg/dL (0.0-0.2); BILIRUBIN,TOTAL 0.7 mg/dL (0.2-1.0); CREATININE 0.8 mg/dL (0.6-1.3); POTASSIUM 3.7 mmol/L (3.5-5.1); TOTAL PROTEIN, SERUM 7.1 g/dL (6.4-8.2)
--- NOTE | 2020-06-19 08:31 | NUR ---
pt resting, no sign of distress, will monitor pt.
--- NOTE | 2020-06-19 09:30 | NUR ---
pt states that she is nervous again, er at bedside talking to the pt.
--- NOTE | 2020-06-19 10:03 | NUR ---
ASSISSTED PT TO CALL HER FRIT BURNER, WILLIAM, , PER PT REQUEST, SO PT CAN ARRANGE THE CARE F HIS DOG WHILE SHE IS IN HOSPITAL. Addendum: 06/19/20 at 1443 by ZEN CORRECTION ON THE NUMBER: [phone]
--- NOTE | 2020-06-19 10:37 | NUR ---
food provided for pt per request.
--- NOTE | 2020-06-19 10:38 | NUR ---
Placed a call to [facility], per DR Wilkinson request.
[2020-06-19 10:39] LABS: ACETAMINOPHEN < 2.0 ug/mL (10-30)
[2020-06-19 10:40] LABS: ETHANOL < 3 MG/DL (0-0)
[2020-06-19] MEDS ORDERED: OLANZAPINE 10 MG VIAL IM ONE ×2 (11:58→12:00)
--- NOTE | 2020-06-19 12:00 | NUR ---
pt states that her anxiety came back and requesting some medicine to calm her down, er notified,
--- NOTE | 2020-06-19 12:15 | NUR ---
GIULIANA BRAMBILA PLACED THE ON VOLUNTARY BASIS. TRANSFER TO FLOOR PENDING ON BED AVAILABILITY.
[2020-06-19] MEDS ORDERED: BUDE3CAP15 PO (12:37)
--- NOTE | 2020-06-19 12:40 | NUR ---
PT STATES THAT MISSED THE AM DOSE OF MD CRAIG NOTIFIED.
[2020-06-19] MEDS ORDERED: APIXABAN 5 MG TABLET PO ONE (12:45)
[2020-06-19] MEDS ORDERED: APIXABAN 2.5 MG TABLET PO SCH (12:45)
--- NOTE | 2020-06-19 12:47 | NUR ---
LUNCH TRAY PROVIDED FOR PT.
[2020-06-19 15:22] LABS: *BILIRUBIN,URIN NEGATIVE (NEGATIVE); *BLOOD, URINE NEGATIVE (NEGATIVE); *CLARITY,URINE CLEAR (CLEAR); *COLOR,URINE YELLOW (YELLOW); *KETONES,URINE 1+ (NEGATIVE); LEUKOCYTE ESTERASE ,URINE 1+ (NEGATIVE); NITRITE, URINE NEGATIVE (NEGATIVE); UGLUCOSE NEGATIVE (NEGATIVE)
[2020-06-19 15:43] LABS: *AMPHETAMINE, URINE NEGATIVE (NEGATIVE); *CANNABINOID, URINE NEGATIVE (NEGATIVE); *COCCAINE, URINE NEGATIVE (NEGATIVE); *OPIATE, URINE NEGATIVE (NEGATIVE); *PHENCYCLIDINE SCREEN,URINE NEGATIVE (NEGATIVE)
--- NOTE | 2020-06-19 16:45 | NUR ---
transfered pt to mhu in stable condition. pt ambulated to bathroom x 2 with assisstance.
[2020-06-19 17:11] VITALS: BP 157/92
[2020-06-19] MEDS ORDERED: MAGNESIUM HYDROXIDE 30 ML LIQUID UDC PO PRN (17:15)
[2020-06-19] MEDS ORDERED: MAG HYDROX/AL HYDROX/SIMETH 30 ML LIQUID UDC PO PRN (17:15)
--- NOTE | 2020-06-19 17:20 | NUR ---
Pt was admitted from ER, received in a gurney. Pt is A/Ox 3. Pt is cooperative with admission process. Pt is on Vol status. Pt went to ER due to having increased anxiety and panic attacks. Upon face to face evaluation, pt is anxious, med seeking, asking when can she have her sleeping pills. Pt states she lives alone and recently fired her caregiver. Pt states the manager urgent care was stealing from her and now calls patient's son and tells lies about the patient and that is the reason why the patient is having panic attacks. Pt denies s.i. or h.i and contracts for safety. Pt was oriented to the unit. Patient's hand book provided.
[2020-06-19 18:49] LABS: BACTERIA,URINE FEW /HPF (NONE SEEN); SQUAMOUS EPITHELIAL CELL,UR FEW /HPF (NONE SEEN); URINE AMORPHOUS URATE MODERATE /HPF
[2020-06-19] MEDS ORDERED: hydrALAZINE HCL 25 MG TABLET PO PRN (19:45)
[2020-06-19 20:05] VITALS: BP 127/67
[2020-06-19] MEDS: LORAZEPAM 0.5 MG TABLET PO PRN (20:05)
[2020-06-19] MEDS: METOPROLOL TARTRATE 25 MG TABLET PO SCH (20:06)
[2020-06-19] MEDS: APIXABAN 5 MG TABLET PO SCH (21:01)
[2020-06-19] MEDS: TEMAZEPAM 7.5 MG CAPSULE PO PRN (22:05)
[2020-06-20] MEDS: LORAZEPAM 0.5 MG TABLET PO PRN (04:21)
--- NOTE | 2020-06-20 04:21 | NUR ---
patient c/o anxiety. ativan 0.5 mg po given.
[2020-06-20] MEDS: ACETAMINOPHEN 325 MG TABLET PO PRN (06:05)
--- NOTE | 2020-06-20 06:19 | NUR ---
GPS: Remain cooperative with care. alert and oriented x3 ,self care. slept 6.30 hrs through the night. ativan 0.5 mg po given x2 through the night. tylenol x1 for pain given. resting in bed comfortably. continue plan of care.
[2020-06-20 07:03] LABS: BILIRUBIN,TOTAL 0.7 mg/dL (0.2-1.0); CREATININE 0.7 mg/dL (0.6-1.3); POTASSIUM 3.6 mmol/L (3.5-5.1); TOTAL PROTEIN, SERUM 6.3 g/dL (6.4-8.2)
[2020-06-20] MEDS: METOPROLOL TARTRATE 25 MG TABLET PO SCH ×2 (08:02→20:52)
[2020-06-20] MEDS: APIXABAN 5 MG TABLET PO SCH ×2 (08:03→20:54)
[2020-06-20] MEDS: LOPERAMIDE HCL 2 MG CAPSULE PO PRN (08:10)
--- NOTE | 2020-06-20 08:34 | NUR ---
Firearms Report: Professor Criminal Justice completed and submitted a [employer] firearms report for 5150 grave disability certification. A copy of report has been placed in patient chart.
[2020-06-20] MEDS ORDERED: Medication Not On Formulary EA (Apixaban (Eliquis) 5 MG) PO SCH (09:00)
[2020-06-20] MEDS ORDERED: BUDESONIDE 9 MG PO SCH (09:00)
--- NOTE | 2020-06-20 09:29 | NUR ---
NOEMI Initial Discharge Plan: Patient resides at her home [address] [place] [address] ([phone]) alone. Patient has a caregiver by the name of Kaycee 3 days a week for 6 hours a day. Patient has a son, Phani ([phone]) however she stated he is not involved in her care. Patient would like to go home upon discharge. NOEMI will continue to work with patient and MD to ensure a safe and proper discharge plan.
[2020-06-20] MEDS ORDERED: LORAZEPAM 2 MG/1 ML VIAL IM ONE (10:30)
--- NOTE | 2020-06-20 11:05 | NUR ---
SW Caregiver contact: NOEMI spoke with patient's caregiver, Kaycee ([phone]) and discussed treatment and discharge plan. Kaycee stated that she is taking care of the patient's dog and to inform patient to not worry.
[2020-06-20] MEDS: VENLAFAXINE XR 75 MG TAB.ER.24H PO SCH (11:42)
[2020-06-20] MEDS: LORAZEPAM 1 MG TABLET PO PRN (16:43)
[2020-06-20 17:16] VITALS: BP 133/79
[2020-06-20 20:08] VITALS: BP 113/50
[2020-06-20] MEDS: ATORVASTATIN 20 MG TABLET PO SCH (20:52)
[2020-06-20] MEDS: EZETIMIBE 10 MG TABLET PO SCH (20:52)
[2020-06-20] MEDS: MIRTAZAPINE 15 MG TABLET PO SCH (20:53)
[2020-06-20] MEDS: TEMAZEPAM 7.5 MG CAPSULE PO PRN (20:55)
[2020-06-21] MEDS: LORAZEPAM 1 MG TABLET PO PRN ×2 (01:51→09:13)
--- NOTE | 2020-06-21 06:23 | NUR ---
Received patient last night in her bed yelling " Nurse, Nurse". When technical document writer went to the room, this patient had multiple complaints about her roommate. The patient also was demanding a sleeping pill at 7.30pm. Education given to the patient on when sleeping medication will be given. Patient was and is extremely anxious and needy. Sleep hours were only 3.30. PRN medications were given per order with little effect. Continuing to monitor for safety and assistance provided throughout the shift. Patient is depressed but denies SI at this time.
[2020-06-21 07:30] VITALS: BP 146/83
[2020-06-21] MEDS: VENLAFAXINE XR 75 MG TAB.ER.24H PO SCH (08:23)
[2020-06-21] MEDS: ENSURE ENLIVE (VAN) 240 ML LIQUID PO SCH (08:24)
[2020-06-21] MEDS: METOPROLOL TARTRATE 25 MG TABLET PO SCH ×2 (08:24→20:42)
[2020-06-21] MEDS: APIXABAN 5 MG TABLET PO SCH ×2 (08:25→20:44)
[2020-06-21 16:00] VITALS: BP 114/62
--- NOTE | 2020-06-21 18:55 | NUR ---
Patient in bed for most of shift despite encouragement to ambulate. Patient ambulates only to the bathroom. Patient stated she was anxious. Anxiety medication given as ordered. Patient compliant with care and medications. Patient denies any pain/ discomfort. Will endorse to incoming shift for continuity of care.
[2020-06-21 20:18] VITALS: BP 136/68
[2020-06-21] MEDS: CEphaleXIN 500 MG CAPSULE PO SCH (20:42)
[2020-06-21] MEDS: EZETIMIBE 10 MG TABLET PO SCH (20:43)
[2020-06-21] MEDS: MIRTAZAPINE 15 MG TABLET PO SCH (20:43)
[2020-06-21] MEDS: ATORVASTATIN 20 MG TABLET PO SCH (20:43)
[2020-06-21] MEDS: TEMAZEPAM 7.5 MG CAPSULE PO PRN (20:44)
[2020-06-22] MEDS: CEphaleXIN 500 MG CAPSULE PO SCH ×3 (05:42→20:57)
--- NOTE | 2020-06-22 05:42 | NUR ---
Received patient in bed last night. Patient appeared to be more confused and required reorientation. Assistance provided for her to the bathroom d/t gait being somewhat unsteady. Bed alarm was set. At one point during the night, patient got up and walked in the hallway , disoriented. Rn Palliative put patient near the station to monitor her more closely. After some time patient became anxious to return to the bed but seemed more alert. Patient slept 6.00 hours. No acute distress noted . Continuing to monitor for safety and to reassure and reorient patient when needed.
[2020-06-22 07:30] VITALS: BP 132/64
[2020-06-22] MEDS: VENLAFAXINE XR 75 MG TAB.ER.24H PO SCH (08:32)
[2020-06-22] MEDS: METOPROLOL TARTRATE 25 MG TABLET PO SCH ×2 (08:32→20:59)
[2020-06-22] MEDS: APIXABAN 5 MG TABLET PO SCH ×2 (08:33→21:00)
[2020-06-22] MEDS: ENSURE ENLIVE (VAN) 240 ML LIQUID PO SCH (08:33)
--- NOTE | 2020-06-22 10:00 | NUR ---
RECEIVED PATIENT IN BED AWAKE ALERT AND ORIENTED COMPLIANT WITH HER MEDICATIONS AND CARE AGREED FOR SHOWER SEEMS ISOLATIVE AND WITHDRAWN ENCOURAGED TO GET OUT OF HER BED AND PARTICIPATE IN ACTIVITIES PROVIDED AND MINGLE WITH OTHER PATIENT MUCH ABLE AND SHE EXPRESSED UNDERSTANDING.
[2020-06-22 16:00] VITALS: BP 131/59
--- NOTE | 2020-06-22 18:00 | NUR ---
REMAIN COOPERATIVE AND COMPLIANT WITH MEDICATIONS AND CARE WILL CONTINUE TO PROVIDE SAFE AND THERAPEUTIC ENVIRONMENT AT ALL TIMES
[2020-06-22 20:14] VITALS: BP 143/76
[2020-06-22] MEDS: ATORVASTATIN 20 MG TABLET PO SCH (20:57)
[2020-06-22] MEDS: MIRTAZAPINE 15 MG TABLET PO SCH (20:59)
[2020-06-22] MEDS: EZETIMIBE 10 MG TABLET PO SCH (20:59)
[2020-06-22] MEDS: TEMAZEPAM 7.5 MG CAPSULE PO PRN (23:47)
--- NOTE | 2020-06-23 05:37 | NUR ---
Patient appears to be a lot less anxious then the previous night. A PRN medication for sleep was given per the patients request. Total sleep hours were 9.30. Monitoring her closely for safety and continuing with the treatment plan.
[2020-06-23] MEDS: CEphaleXIN 500 MG CAPSULE PO SCH ×3 (06:03→21:18)
[2020-06-23 07:30] VITALS: BP 120/74
[2020-06-23] MEDS: LOPERAMIDE HCL 2 MG CAPSULE PO PRN (07:50)
[2020-06-23] MEDS ORDERED: LORAZEPAM 1 MG TABLET PO PRN (08:45)
[2020-06-23] MEDS: VENLAFAXINE XR 75 MG TAB.ER.24H PO SCH ×2 (09:08→13:07)
[2020-06-23] MEDS: METOPROLOL TARTRATE 25 MG TABLET PO SCH ×2 (09:08→20:23)
[2020-06-23] MEDS: APIXABAN 5 MG TABLET PO SCH ×2 (09:09→20:22)
[2020-06-23] MEDS: ENSURE ENLIVE (VAN) 240 ML LIQUID PO SCH (09:14)
[2020-06-23] MEDS: LORAZEPAM 0.5 MG TABLET PO PRN ×2 (11:15→20:47)
--- NOTE | 2020-06-23 11:24 | NUR ---
spoke with patient if okay for nurse to call her family bring Entocort ES non-formulary medication , patient said "no" she not wish to have anyone notified.
[2020-06-23 15:31] VITALS: BP 109/66
--- NOTE | 2020-06-23 15:53 | NUR ---
GPS: Nursing Notes: Transfer to GPS-Overflow: Patient transfer to room # 302 as GPS overflow, report given to accepting nurse - DANYELL Liu to continue with care.
--- NOTE | 2020-06-23 16:00 | NUR ---
RECEIVED PATIENT FOR GERIATRIC PSYCH OVER FLOW TO ROOM 302.PLACED INTO BED FIXED AND MADE COMFORTABLE PATIENT IS ALERT AND ORIENTED ORIENTED TO ROOM AND THIRD FLOOR NO S/S OF ANXIETY OR PANIC DISORDER AT THIS TIME SEEMS CALM AND COOPERATIVE WILL CONTINUE TO OBSERVE AND PROVIDE SAFE AND THERAPEUTIC ENVIRONMENT AT ALL TIMES.
--- NOTE | 2020-06-23 17:36 | NUR ---
PATIENT HAS NONE OF HER PERSONAL BELONGINGS HERE EXCEPT A RING YELLOW METAL WITH WHITE STONES SPOKE WITH THE MHU STAFF STATED WILL KEEP THE REST OF HER PERSONAL BELONGINGS AT THE [facility]AL [facility]ALTH UNIT UNTIL PATIENT IS DISCHARGED.SHE HAS A BLOUSE ON BUT STATED IT BELONGS TO THE HOSPITAL.
[2020-06-23] MEDS: BUDESONIDE EC 3 MG CAP.SR.24H PO SCH (17:54)
--- NOTE | 2020-06-23 18:01 | NUR ---
IN ROOM AWAKE ALERT ORIENTED AND COMPLIANT WITH MEDICATIONS AND CARE WILL CONTINUE TO PROVIDE SAFE AND THERAPEUTIC ENVIRONMENT AT ALL TIMES
--- NOTE | 2020-06-23 19:45 | NUR ---
Patient awake in bed. a/o x4. Denies any pain or discomfort. vs wnl. No resp. distress noted. Bed alarm on. All needs attended. Will continue to monitor and assess.
[2020-06-23 20:00] VITALS: BP 119/55
[2020-06-23] MEDS: ATORVASTATIN 20 MG TABLET PO SCH (20:22)
[2020-06-23] MEDS: MIRTAZAPINE 15 MG TABLET PO SCH (20:23)
[2020-06-23] MEDS: EZETIMIBE 10 MG TABLET PO SCH (20:23)
--- NOTE | 2020-06-23 20:47 | NUR ---
Patient given Ativan 0.5mg po prn for anxiety. Will continue to monitor and assess.
--- NOTE | 2020-06-23 22:45 | NUR ---
Patient awake in bed. Unable to sleep and asking for sleeping pill. Called out to Dr. Madden for further orders. No new orders per MD. All needs attended.
--- NOTE | 2020-06-23 23:00 | NUR ---
Patient asleep in bed. No resp. distress noted. Will continue to monitor and assess. Addendum: 06/24/20 at 0219 by JAN BURDEN LVN Clarification- time patient fell asleep was 2345.
[2020-06-24 04:00] VITALS: BP 152/82
[2020-06-24] MEDS: CEphaleXIN 500 MG CAPSULE PO SCH ×3 (05:33→21:00)
--- NOTE | 2020-06-24 05:42 | NUR ---
Patient slept a total of 7 hours. Will continue to monitor and assess.
[2020-06-24] MEDS: LORAZEPAM 0.5 MG TABLET PO PRN ×2 (07:12→16:49)
[2020-06-24 07:30] VITALS: BP 117/54
[2020-06-24] MEDS: BUDESONIDE EC 3 MG CAP.SR.24H PO SCH (09:15)
[2020-06-24] MEDS: VENLAFAXINE XR 75 MG TAB.ER.24H PO SCH ×2 (09:16→13:14)
[2020-06-24] MEDS: METOPROLOL TARTRATE 25 MG TABLET PO SCH ×2 (09:16→20:58)
[2020-06-24] MEDS: APIXABAN 5 MG TABLET PO SCH ×2 (09:18→20:59)
--- NOTE | 2020-06-24 09:30 | NUR ---
DR ORTA HERE TO SEE PATIENT WITH NO NEW ORDERS STATED THAT PATIENT SHOULD BE TAKEN TO THE MENTAL HEALTH UNIT FOR ACTIVITIES AND LEFT THERE LONG SHE IS ABLE TO TOLERATE CALLED THE MENTAL HEALTH UNIT SPOKE WITH THE MALT HOUSE OPERATOR STATED IT WAS OKAY TO SEND THE PATIENT WHEN EVER SHE WAS READY.
[2020-06-24] MEDS: ENSURE ENLIVE (VAN) 240 ML LIQUID PO SCH (09:39)
--- NOTE | 2020-06-24 10:00 | NUR ---
PATIENT TAKEN TO THE MENTAL HEALTH UNIT BY W/CHAIR FOR ACTIVITIES AND PARTICIPATION.
--- NOTE | 2020-06-24 11:45 | NUR ---
PATIENT RETURNED BACK TO HER ROOM AND RESTING IN HER BED AT THIS TIME.
--- NOTE | 2020-06-24 11:45 | NUR ---
NOEMI Individual Therapy Note: SW met with patient and provided individual counseling and addressed patient presenting problem of anxiety. Patient expresses that a lot of her anxiety came from her previous caregiver which she had fired. Patient stated that she felt a lot of fear and disappointment which led to her current anxiety. Patient shared that she is very happy with her current caregiver. SW helped patient identify triggers and identify coping strategies to help deal with them. Patient presents with calmer demeanor. Patient was able to verbalize that she over thinks about things which increase her anxiety. SW provided supportive counseling, active listening, helped identify coping skills and problem solve. Patient demonstrates a better understanding and has more insight into her presenting problems.
--- NOTE | 2020-06-24 13:15 | NUR ---
NOEMI Caregiver contact: NOEMI spoke with patient's caregiver, Kaycee ([phone]) and discussed treatment and discharge plan. Kaycee state that she will be visiting the patient today.
[2020-06-24] MEDS: LOPERAMIDE HCL 2 MG CAPSULE PO PRN (13:49)
--- NOTE | 2020-06-24 14:00 | NUR ---
PATIENT TAKEN TO THE MENTAL HEALTH UNIT FOR ACTIVITIES AND TOLERATE WELL.
[2020-06-24 15:56] VITALS: BP 144/67
--- NOTE | 2020-06-24 18:00 | NUR ---
RESTING IN BED REQUESTED FOR ATIVAN FOR ANXIETY GIVEN ORDERED AT 1650 ORDERED AND EFFECTIVE.
[2020-06-24 20:00] VITALS: BP 141/69
[2020-06-24] MEDS: MIRTAZAPINE 15 MG TABLET PO SCH (20:58)
[2020-06-24] MEDS: EZETIMIBE 10 MG TABLET PO SCH (20:58)
[2020-06-24] MEDS: ATORVASTATIN 20 MG TABLET PO SCH (20:58)
[2020-06-25 04:00] VITALS: BP 123/81
[2020-06-25] MEDS: CEphaleXIN 500 MG CAPSULE PO SCH ×3 (05:58→21:36)
[2020-06-25] MEDS: LORAZEPAM 0.5 MG TABLET PO PRN ×2 (06:56→13:05)
--- NOTE | 2020-06-25 07:02 | NUR ---
Pt slept 8.5 hours; had a loose BM; incontinence care done; pt is anxious this AM and took ativan; continue to monitor; continue plan of care.
[2020-06-25 07:54] VITALS: BP 145/72
[2020-06-25] MEDS: VENLAFAXINE XR 75 MG TAB.ER.24H PO SCH ×2 (08:44→12:32)
[2020-06-25] MEDS: METOPROLOL TARTRATE 25 MG TABLET PO SCH ×2 (08:44→20:18)
[2020-06-25] MEDS: ENSURE ENLIVE (VAN) 240 ML LIQUID PO SCH (08:48)
[2020-06-25] MEDS: APIXABAN 5 MG TABLET PO SCH ×2 (08:50→20:19)
[2020-06-25] MEDS: BUDESONIDE EC 3 MG CAP.SR.24H PO SCH (08:52)
--- NOTE | 2020-06-25 10:04 | NUR ---
NOEMI Coordination of Care: Patient is referred to [facility] [address], [address] [place] [address] ([phone]) and has an appointment scheduled on Tuesday June 30, 2020 at 2PM. Spoke with Silvana who stated they will refer the patient for outpatient psychiatric services upon her visit.
--- NOTE | 2020-06-25 11:06 | NUR ---
NOEMI Individual Therapy Note: SW met with patient and provided individual counseling and addressed patient presenting problem of anxiety. Patient presents less anxious. Patient is concerned about not having aftercare providers to follow up with. SW provided supportive counseling and helped reduce patient's anxiety by ensuring that she will have outpatient providers to follow up with for her ongoing care. Patient is very receptive and able to better understand and has more insight. Patient does not express any other concerns at this time. SW encouraged patient to join group activities and patient agreed she will be attending.
[2020-06-25 15:58] VITALS: BP 121/70
[2020-06-25] MEDS: ACETAMINOPHEN 325 MG TABLET PO PRN (16:05)
--- NOTE | 2020-06-25 18:42 | NUR ---
pt cooperative able to ambulate to restroom, continent of both B/B, given PRN Ativan 0.5 mg at 1 P.M. complain of generalized pain and was administered with acetaminophen 650 mg at 4P.M. medication given as ordered no panic attack noted. needs attended to and met. frequent visual check done, bed at lowest position and is locked. will continue to monitor.
[2020-06-25 20:00] VITALS: BP 112/57
[2020-06-25] MEDS: ATORVASTATIN 20 MG TABLET PO SCH (20:17)
[2020-06-25] MEDS: MIRTAZAPINE 15 MG TABLET PO SCH (20:17)
[2020-06-25] MEDS: EZETIMIBE 10 MG TABLET PO SCH (20:17)
[2020-06-26 04:00] VITALS: BP 145/71
[2020-06-26] MEDS: CEphaleXIN 500 MG CAPSULE PO SCH ×3 (05:49→21:10)
[2020-06-26] MEDS: LORAZEPAM 0.5 MG TABLET PO PRN (06:27)
--- NOTE | 2020-06-26 06:38 | NUR ---
Patient slept well through out the night.Denies SI/HI.No panic attack last night.Compliant with medication.Patient on ATB therapy for UTI. No a/r noted. Patient started screaming this morning calling for her nurse and asking for ATivan. Medication given. Will endorsed to oncoming shift.
--- NOTE | 2020-06-26 07:30 | NUR ---
START OF SHIFT: received change of shift report, pt a/o x4, on room air, no signs fo distress, no reports of pain noted at this time. pt ambulates with assistance, BRP, pt incontinent of bowel. last BM 06/26/2020. pt denies SI/HI, will continue to monitor.
[2020-06-26] MEDS: BUDESONIDE EC 3 MG CAP.SR.24H PO SCH (08:26)
[2020-06-26] MEDS: VENLAFAXINE XR 150 MG CAP.SR.24H PO SCH (08:26)
[2020-06-26] MEDS: METOPROLOL TARTRATE 25 MG TABLET PO SCH ×2 (08:26→20:37)
[2020-06-26] MEDS: APIXABAN 5 MG TABLET PO SCH ×2 (08:28→20:38)
[2020-06-26] MEDS: ENSURE ENLIVE (VAN) 240 ML LIQUID PO SCH (08:30)
[2020-06-26] MEDS ORDERED: LORAZEPAM 0.5 MG TABLET PO PRN (08:45)
[2020-06-26 11:20] VITALS: BP 147/75
--- NOTE | 2020-06-26 14:39 | NUR ---
NOEMI Coordination of Care: NOEMI spoke with Dr. Madden and the patient together and discussed treatment and discharge plan. Dr. Madden discussed a new medication with the patient and stated that we will need to monitor the patient for an additional 2 days before discharge. Patient agreed. Patient's discharge postponed to Tuesday. ONEMI spoke with patient's caregiver, Kaycee ([phone]) and discussed treatment and discharge plan. Kaycee is agreeable and will fish bait picker the patient Tuesday at 11am.
--- NOTE | 2020-06-26 14:40 | NUR ---
TRANSFER: report given to DANYELL Jones. pt going back to MHU. vitals WNL, on room air, no reports of pain at this time, pt being transferred to room 139B. pt was taught relaxation techniques to cope. pt responding well, is cooperative, not as tense as before. pt sent via wheelchair with chart.
--- NOTE | 2020-06-26 14:40 | NUR ---
Patient in from Med-surge overflow, via wheelchair. AAOx4. vitals as follow 111/92, HR of 70, saturation of 98%. No c/of pain. Patient with some anxiety related to ativan prescription. board worker at this time called pharmacy and spoke with a sales representative education courses and confirmed that pt. will be able to molded goods spot picker her medications Tuesday the day of her dcd from hospital. Patient situated in bed, at this time follows commands ambulatory with minimal assistance.
[2020-06-26 14:50] VITALS: BP 143/73
[2020-06-26 15:00] VITALS: BP 111/92
[2020-06-26] MEDS: LOPERAMIDE HCL 2 MG CAPSULE PO PRN ×2 (15:10→20:40)
[2020-06-26] MEDS ORDERED: Z GUARD REMEDY PASTE 57 GM TUBE TOP PRN (16:00)
[2020-06-26] MEDS: ARIPIPRAZOLE 2 MG TABLET PO SCH (16:41)
--- NOTE | 2020-06-26 18:45 | NUR ---
Pt. left in bed resting medicated for diarrhea as requested. pt. AAox3-4. Pt. with episodes of anxiety. Vitals stable, no c/of pain will continue with care plan.
[2020-06-26 20:07] VITALS: BP 136/72
[2020-06-26] MEDS: ATORVASTATIN 20 MG TABLET PO SCH (20:37)
[2020-06-26] MEDS: EZETIMIBE 10 MG TABLET PO SCH (20:40)
[2020-06-26] MEDS: MIRTAZAPINE 15 MG TABLET PO SCH (20:42)
[2020-06-27] MEDS ORDERED: ONDANSETRON ODT 4 MG TAB.RAPDIS SL PRN (02:15)
--- NOTE | 2020-06-27 05:36 | NUR ---
pt rested in between care; pt slept 6 hours; assisted to bathroom; continue to monitor; pt c/o nausea and stomach upset; maalox given; and has no effect; referred to SOFTWARE ENGINEER BACKEND miladis Moses ordered and given to pt.; continue plan of care; needs attended.
[2020-06-27] MEDS: CEphaleXIN 500 MG CAPSULE PO SCH ×3 (05:57→21:26)
[2020-06-27 07:30] VITALS: BP 138/66
[2020-06-27] MEDS: VENLAFAXINE XR 150 MG CAP.SR.24H PO SCH (08:15)
[2020-06-27] MEDS: ARIPIPRAZOLE 2 MG TABLET PO SCH ×2 (08:15→16:21)
[2020-06-27] MEDS: LORAZEPAM 0.5 MG TABLET PO PRN (08:16)
[2020-06-27] MEDS: METOPROLOL TARTRATE 25 MG TABLET PO SCH ×2 (08:16→20:01)
[2020-06-27] MEDS: APIXABAN 5 MG TABLET PO SCH ×2 (08:18→20:03)
[2020-06-27] MEDS: BUDESONIDE EC 3 MG CAP.SR.24H PO SCH ×4 (08:19→16:21)
[2020-06-27] MEDS: ENSURE ENLIVE (VAN) 240 ML LIQUID PO SCH (08:19)
[2020-06-27 11:15] LABS: BASOPHILS % (AUTO) 0.5 % (0.0-2.0); EOSINOPHILS # (AUTO) 0.1 K/uL (0.0-0.7); EOSINOPHILS % (AUTO) 0.8 % (0.0-7.0); HEMATOCRIT 42.9 % (31.2-41.9); HEMOGLOBIN 14.2 g/dL (10.9-14.3); LYMPHOCYTES # (AUTO) 1.9 K/uL (20.0-40.0); LYMPHOCYTES % (AUTO) 22.2 % (20.5-51.5); MEAN CORPUSCULAR HEMOGLOBIN 28.9 uug (24.7-32.8); MEAN CORPUSCULAR HGB CONC 33 g/dL (32.3-35.6); MEAN CORPUSCULAR VOLUME 87.4 fL (75.5-95.3); MONOCYTES % (AUTO) 11.6 % (0.0-11.0); NEUTROPHILS # (AUTO) 5.6 K/uL (1.8-8.9); NEUTROPHILS % (AUTO) 64.9 % (38.5-71.5); PLATELET COUNT (AUTO) 253 K/uL (179-408); RED BLOOD CELL COUNT(AUTO) 4.91 MIL/uL (3.63-4.92); WHITE BLOOD COUNT (AUTO) 8.6 K/uL (3.8-11.8)
[2020-06-27 11:25] LABS: BILIRUBIN,TOTAL 0.6 mg/dL (0.2-1.0); CREATININE 0.9 mg/dL (0.6-1.3); POTASSIUM 3.9 mmol/L (3.5-5.1); TOTAL PROTEIN, SERUM 6.5 g/dL (6.4-8.2)
[2020-06-27 11:33] LABS: *BILIRUBIN,URIN NEGATIVE (NEGATIVE); *BLOOD, URINE NEGATIVE (NEGATIVE); *CLARITY,URINE CLEAR (CLEAR); *COLOR,URINE YELLOW (YELLOW); *KETONES,URINE NEGATIVE (NEGATIVE); *UROBILINOGEN,URINE 0.2 E.U./dl (NORMAL); LEUKOCYTE ESTERASE ,URINE 1+ (NEGATIVE); NITRITE, URINE NEGATIVE (NEGATIVE); PH,URINE 5.5 (5.0-8.0); UGLUCOSE NEGATIVE (NEGATIVE)
[2020-06-27 16:13] VITALS: BP 120/65
[2020-06-27] MEDS: ACETAMINOPHEN 325 MG TABLET PO PRN (16:21)
--- NOTE | 2020-06-27 17:52 | NUR ---
Patient is preoccupied abdominal cramps and continuously asks for PRN medication. She is anxious. Slept intermittently throughout the day. Patient complains of stomach upset. Patient given Tylenol at 1621 for mild pain. Cooperative with plan of care. Complained of burning sensation when urinating, patient is currently being treated for UTI.
[2020-06-27] MEDS: EZETIMIBE 10 MG TABLET PO SCH (20:00)
[2020-06-27] MEDS: ATORVASTATIN 20 MG TABLET PO SCH (20:00)
[2020-06-27] MEDS: MIRTAZAPINE 15 MG TABLET PO SCH (20:01)
[2020-06-27 20:53] VITALS: BP 118/64
[2020-06-27 23:25] LABS: BACTERIA,URINE NONE SEEN /HPF (NONE SEEN); RBC,URINE 0-3 /HPF (0-3); SQUAMOUS EPITHELIAL CELL,UR FEW /HPF (NONE SEEN); WBC,URINE 0-3 /HPF (0-3)
[2020-06-27 23:26] LABS: URINE AMORPHOUS URATE MANY /HPF
[2020-06-28] MEDS: CEphaleXIN 500 MG CAPSULE PO SCH (05:44)
--- NOTE | 2020-06-28 05:59 | NUR ---
GPS: Remain calm and cooperative with meds and care. slept 8.50 hrs through the night. self care. no behavior issue noted at this time. continue plan of care.
[2020-06-28] MEDS: LORAZEPAM 0.5 MG TABLET PO PRN (06:25)
--- NOTE | 2020-06-28 06:36 | NUR ---
patient c/o anxiety. ativan 0.5 mg po given per patient requested.
[2020-06-28 07:30] VITALS: BP 140/78
[2020-06-28] MEDS: ARIPIPRAZOLE 2 MG TABLET PO SCH (08:24)
[2020-06-28 08:25] VITALS: BP 140/78
[2020-06-28] MEDS: VENLAFAXINE XR 150 MG CAP.SR.24H PO SCH (08:25)
[2020-06-28] MEDS: ENSURE ENLIVE (VAN) 240 ML LIQUID PO SCH (08:25)
[2020-06-28] MEDS: METOPROLOL TARTRATE 25 MG TABLET PO SCH (08:25)
[2020-06-28] MEDS: BUDESONIDE EC 3 MG CAP.SR.24H PO SCH (08:26)
[2020-06-28] MEDS: APIXABAN 5 MG TABLET PO SCH (08:26)
--- NOTE | 2020-06-28 11:15 | NUR ---
Received patient aox4, patient was here voluntarily for panic attack and increase in anxiety, patient was seen by Psychiatrist and was on Milieu Therapy, patient been compliant with medication, was put on [id number], patient denies SI and HI, denies AH/VH , patient was picked up by her director of career services and home medication instructions nd appointments was given to the caregiver, patient was in good mood, and all her belongings and valuables were accounted for and signed by the patient , MD is aware of the DC
--- NOTE | 2020-06-30 08:35 | NUR ---
SW Discharge Note (Late Entry) Patient was discharged home on 06/28/20 [address] [place] [address] ([phone]). Patients caregiver, Kaycee ([phone]) picked up the patient at 11AM. Patient presents alert and oriented x4 and is aware and agreeable with discharge plan. Patient denies suicidal or homicidal ideation. Patient presents with euthymic mood and congruent affect. Patient is referred to [facility]. ( ) david Hanna and will be admitted upon arrival home today. Patient will have medication management, shower assistance, physical therapy, and nurse visits several times a week. Patient is referred to [facility] [address], [address] [place] [address] ([phone]) and has an appointment scheduled on Tuesday June 30, 2020 at 2PM. Patient is referred to [facility] for outpatient psychiatric services [address], [place] [address] ([phone]) and has an appointment scheduled on 07/01/20 at 10:10AM .
== END 2020-06-28 11:00 | disposition home health service (06) | DRG 880 ==
LOC: ER 07:05 → GPS 16:25 → GPSOV3 06-23 15:49 → GPS 06-26 14:27
PROVIDERS: ADMIT Psychiatry & Neurology Psychosomatic Medicine; ATTEND Internal Medicine
DX: F41.0 Panic disorder [episodic paroxysmal anxiety] (principal); N39.0 Urinary tract infection, site not specified; D68.69 Other thrombophilia; K50.90 Crohn's disease, unspecified, without complications; F32.9 Major depressive disorder, single episode, unspecified; E78.5 Hyperlipidemia, unspecified; Z79.01 Long term (current) use of anticoagulants; E03.9 Hypothyroidism, unspecified; Z74.09 Other reduced mobility; Z86.711 Personal history of pulmonary embolism; Z20.822 Contact with and (suspected) exposure to COVID-19; M19.90 Unspecified osteoarthritis, unspecified site; Z86.73 Personal history of transient ischemic attack (TIA), and cerebral infarction without residual deficits; F41.9 Anxiety disorder, unspecified; K57.90 Diverticulosis of intestine, part unspecified, without perforation or abscess without bleeding; Z98.82 Breast implant status; K86.89 Other specified diseases of pancreas; N28.1 Cyst of kidney, acquired; K76.89 Other specified diseases of liver; I10 Essential (primary) hypertension
CPT/HCPCS: 36415; 70030-TC; 83735; 84443; 85025; 87086; 93005; A4663; G0480; J2060; J2358; Q0162

== ENCOUNTER 2020-08-25 08:31 | Inpatient (IN) | payer MEDICARE, OTHER ==
[~2020-08-25] VITALS: Ht 165.1 cm; Wt 59.0 kg
[~2020-08-25 08:31] MED LIST changes: -AMLO2.5T4 PO; -FAMO-132 PO; -LEVO25TA9 PO; -NITR100C11 PO; -OLAN5TAB3 PO; -ONDA4TAB5 PO; -VENL75TA4 PO
--- NOTE | 2020-08-25 08:48 | NUR ---
PT IS IN ROOM #2A. DR BAIRD EVALUATED THE PT.
[2020-08-25] MEDS ORDERED: IV NORMAL SALINE 1000 ML BAG IV ONE (09:15)
[2020-08-25] MEDS ORDERED: ONDANSETRON 4 MG/2 ML VIAL IV ONE (09:15)
[2020-08-25] MEDS ORDERED: PANTOPRAZOLE SODIUM 40 MG VIAL IV ONE (09:15)
[2020-08-25] MEDS ORDERED: PANTOPRAZOLE SODIUM 40 MG VIAL ONE (09:18)
[2020-08-25] MEDS ORDERED: ONDANSETRON 4 MG/2 ML VIAL ONE (09:18)
[2020-08-25 09:29] LABS: HEMATOCRIT 46.4 % (31.2-41.9); PLATELET COUNT (AUTO) 244 K/uL (179-408)
[2020-08-25 09:35] LABS: CREATININE 0.8 mg/dL (0.6-1.3); POTASSIUM 4.4 mmol/L (3.5-5.1)
[2020-08-25 09:41] LABS: BILIRUBIN,DIRECT 0.1 mg/dL (0.0-0.2); BILIRUBIN,TOTAL 0.5 mg/dL (0.2-1.0); TOTAL PROTEIN, SERUM 7.3 g/dL (6.4-8.2)
[2020-08-25] MEDS ORDERED: MORPHINE SULFATE 2 MG/1 ML DISP.SYRIN ONE ×2 (09:55→11:02)
[2020-08-25] MEDS ORDERED: MORPHINE SULFATE 2 MG/1 ML DISP.SYRIN IV ONE ×2 (10:00→11:00)
--- NOTE | 2020-08-25 10:48 | NUR ---
Urine collected and dropped off at lab
[2020-08-25 10:55] LABS: *BILIRUBIN,URIN NEGATIVE (NEGATIVE); *BLOOD, URINE NEGATIVE (NEGATIVE); *CLARITY,URINE CLEAR (CLEAR); *COLOR,URINE YELLOW (YELLOW); *KETONES,URINE NEGATIVE (NEGATIVE); *UROBILINOGEN,URINE 0.2 E.U./dl (NORMAL); LEUKOCYTE ESTERASE ,URINE 1+ (NEGATIVE); NITRITE, URINE NEGATIVE (NEGATIVE); UGLUCOSE NEGATIVE (NEGATIVE)
[2020-08-25] MEDS ORDERED: LORAZEPAM 2 MG/1 ML VIAL IV ONE (11:00)
[2020-08-25] MEDS ORDERED: LORAZEPAM 2 MG/1 ML VIAL ONE (11:07)
[2020-08-25 11:18] LABS: BACTERIA,URINE MODERATE /HPF (NONE SEEN); MUCUS,URINE FEW /LPF (0-FEW); RBC,URINE 0-3 /HPF (0-3); SQUAMOUS EPITHELIAL CELL,UR FEW /HPF (NONE SEEN); URINE AMORPHOUS PHOSPHATES MANY /HPF
[2020-08-25] MEDS ORDERED: IV NS 1000 ML 1,000 ML IV ONE (12:45)
[2020-08-25] MEDS ORDERED: AMLO2.5T4 PO (12:51)
[2020-08-25] MEDS ORDERED: PANT40TA49 PO (12:51)
[2020-08-25] MEDS ORDERED: VENL150T PO (12:51)
[2020-08-25] MEDS ORDERED: VENL75CA62 PO (12:51)
[2020-08-25] MEDS ORDERED: METO25TA6 PO (12:51)
[2020-08-25] MEDS ORDERED: LORA-258 PO (12:52)
--- NOTE | 2020-08-25 13:51 | NUR ---
REPORT WAS GIVEN TO INJECTION MOLDER. PT WAS TRANSFERED TO ROOM #304.
[2020-08-25 15:00] VITALS: BP 135/69
[2020-08-25] MEDS ORDERED: Z GUARD REMEDY PASTE 57 GM TUBE TOP PRN (17:00)
[2020-08-25] MEDS ORDERED: MORPHINE SULFATE 2 MG/1 ML DISP.SYRIN IV PRN (17:00)
[2020-08-25] MEDS ORDERED: MAGNESIUM HYDROXIDE 30 ML LIQUID UDC PO PRN (17:00)
[2020-08-25] MEDS ORDERED: ONDANSETRON 4 MG/2 ML VIAL IV PRN (17:00)
[2020-08-25] MEDS: ACETAMINOPHEN 325 MG TABLET PO PRN ×2 (17:12→22:45)
[2020-08-25] MEDS: IV NS 1000 ML 1,000 ML IV PRN (17:12)
[2020-08-25] MEDS: CEFTRIAXONE 1 G in IV DEXTROSE 5% 50 ML IV SCH (17:54)
--- NOTE | 2020-08-25 18:00 | NUR ---
Admitting orders received and carried out. Pt Alert and oriented x 4. Noted bruising on UE's and under the left breast fold - pix taken. IV on Left forearm intact. IVF infusing as ordered. Tylenol given earlier for DAVID is effective. Pt currently in no acute distress. Call light is within reach. PT tolerated soft diet. No nausea or vomiting noted.
[2020-08-25 20:06] VITALS: BP 112/53
[2020-08-25] MEDS: LORAZEPAM 0.5 MG TABLET PO PRN (21:50)
[2020-08-26 04:06] VITALS: BP 169/82
--- NOTE | 2020-08-26 04:54 | NUR ---
Pt slept intermittently throughout the night. Denies pain or SOB at this time. Pupils noted to be unequal. Right pupil 4mm and left pupil 2mm. Pt stated that she fell 2 years ago and had to have the lens in her right eye replaced and that is why they are unequal. No distress noted at this time. Safety and comfort provided. No other issues or concerns at this time, will endorse to day shift.
[2020-08-26 06:06] LABS: HEMATOCRIT 48.9 % (31.2-41.9); MEAN CORPUSCULAR HEMOGLOBIN 27.9 uug (24.7-32.8); MEAN CORPUSCULAR VOLUME 90.6 fL (75.5-95.3); PLATELET COUNT (AUTO) 186 K/uL (179-408)
[2020-08-26] MEDS: PANTOPRAZOLE SODIUM 40 MG TABLET.DR PO SCH (06:09)
[2020-08-26] MEDS ORDERED: NORMAL SALINE NASAL 45 ML BOTTLE NS PRN (06:45)
[2020-08-26] MEDS: AMLODIPINE 2.5 MG TABLET PO SCH ×2 (06:45→07:48)
--- NOTE | 2020-08-26 06:48 | NUR ---
Pt c/o headache. Given Morphine. PT states head still hurts and that she normally has BP medication that she takes. Notified Dr. Moon and ordered patient's Metoprolol and Norvasc. Also added Eliquis for patient's hx of PE and saline nasal spray for complaint of nasal congestion.
[2020-08-26 06:54] VITALS: BP 151/65
[2020-08-26 06:57] LABS: ALANINE AMINOTRANSFERASE 21 U/L (14-59); ALKALINE PHOSPHATASE 97 U/L (50-136); ASPARTATE AMINOTRANSFERASE 20 U/L (15-37); BILIRUBIN,DIRECT 0.1 mg/dL (0.0-0.2); BILIRUBIN,TOTAL 0.5 mg/dL (0.2-1.0); CARBON DIOXIDE 21 mmol/L (21-32); CHLORIDE 110 mmol/L (98-107); CREATININE 0.5 mg/dL (0.6-1.3); MAGNESIUM 2.5 mg/dL (1.8-2.4); PHOSPHOROUS 3.4 mg/dL (2.5-4.9); POTASSIUM 4.1 mmol/L (3.5-5.1); TOTAL PROTEIN, SERUM 6.5 g/dL (6.4-8.2)
[2020-08-26] MEDS: METOPROLOL TARTRATE 25 MG TABLET PO SCH ×3 (06:58→16:24)
[2020-08-26 07:12] LABS: GLUCOSE 89 mg/dL (74-106); UREA NITROGEN, BLOOD 10 mg/dL (7-18)
[2020-08-26] MEDS: VENLAFAXINE XR 75 MG TAB.ER.24H PO SCH (07:48)
--- NOTE | 2020-08-26 08:00 | NUR ---
Pt c/o that she is nauseated. Instructed pt that she shouldn't eat to prevent further nausea. Pt disregarded instructions and ate her breakfast. Zofran given for n/v.
[2020-08-26] MEDS: LORAZEPAM 0.5 MG TABLET PO PRN ×2 (08:54→17:59)
[2020-08-26] MEDS: APIXABAN 5 MG TABLET PO SCH ×2 (08:55→20:38)
[2020-08-26] MEDS: IV NS 1000 ML 1,000 ML IV PRN (08:59)
[2020-08-26] MEDS ORDERED: CLONIDINE HCL 0.1 MG TABLET PO PRN (10:30)
[2020-08-26] MEDS: METOCLOPRAMIDE HCL 10 MG/2 ML VIAL IV PRN ×2 (11:25→20:42)
--- NOTE | 2020-08-26 11:30 | NUR ---
Pt was seen by hospitalist aware that pt was c/o n/v and that zofran was not effective. New order for reglan given as ordered for n/v.
[2020-08-26 12:00] VITALS: BP 152/86
--- NOTE | 2020-08-26 13:00 | NUR ---
Reglan given earlier effective pt denies any c/o further nausea. Pt comfortable in bed.
[2020-08-26 16:00] VITALS: BP 134/69
[2020-08-26] MEDS: CEFTRIAXONE 1 G in IV DEXTROSE 5% 50 ML IV SCH (17:07)
[2020-08-26 20:38] VITALS: BP 130/64
[2020-08-27] MEDS: IV NS 1000 ML 1,000 ML IV PRN (01:00)
[2020-08-27 04:35] VITALS: BP 120/74
[2020-08-27] MEDS: PANTOPRAZOLE SODIUM 40 MG TABLET.DR PO SCH (06:33)
[2020-08-27 06:41] LABS: HEMATOCRIT 45.2 % (31.2-41.9); MEAN CORPUSCULAR HEMOGLOBIN 28.4 uug (24.7-32.8); PLATELET COUNT (AUTO) 179 K/uL (179-408)
--- NOTE | 2020-08-27 06:53 | NUR ---
No events of note overnight. Reglan given x1 for some Nausea with no episodes of emesis. Clonidine given x1 for 182/100+ BP with good effect.
[2020-08-27 06:56] LABS: CREATININE 0.7 mg/dL (0.6-1.3); MAGNESIUM 2.3 mg/dL (1.8-2.4); PHOSPHOROUS 3.2 mg/dL (2.5-4.9); POTASSIUM 4.4 mmol/L (3.5-5.1)
--- NOTE | 2020-08-27 08:00 | NUR ---
Patient received in bed with eyes open, alert and oriented x4. Patient is restless and states that she is experiencing alot of anxiety. Ativan administered as ordered. Patient on room air with no SOB or difficulties breathing. No acute distress noted at this time. All needs met. Personal belongings and call poole within easy reach. Will continue to monitor.
[2020-08-27] MEDS: AMLODIPINE 2.5 MG TABLET PO SCH (08:18)
[2020-08-27] MEDS: VENLAFAXINE XR 75 MG TAB.ER.24H PO SCH (08:18)
[2020-08-27] MEDS: LORAZEPAM 0.5 MG TABLET PO PRN (08:18)
[2020-08-27] MEDS: METOPROLOL TARTRATE 25 MG TABLET PO SCH (08:19)
[2020-08-27] MEDS: APIXABAN 5 MG TABLET PO SCH (08:20)
[2020-08-27] MEDS: METOCLOPRAMIDE HCL 10 MG/2 ML VIAL IV PRN (09:41)
[2020-08-27 11:30] VITALS: BP 104/51
--- NOTE | 2020-08-27 11:45 | NUR ---
[facility] provider Munira Harmon at bedside. Patient expresses that she wants to be discharged today. [facility] provider explained to patient that she has to tolerate her lunch with no N/V/D first before she can be discharged. Patient expressed understanding. Will continue to monitor.
[2020-08-27] MEDS ORDERED: APIX5TAB PO (13:12)
[2020-08-27] MEDS ORDERED: METO-295 PO (13:12)
[2020-08-27] MEDS ORDERED: CEPH500C2 PO (13:12)
--- NOTE | 2020-08-27 13:45 | NUR ---
Patient tolerated her regular diet with no N/V/D at this time. Epic provider Eden notified with orders to discharge patient at this time. Patient made aware.
--- NOTE | 2020-08-27 15:01 | NUR ---
Patient discharged in satisfactory condition. Picked up by Kaycee, her caregiver, with all her personal belongings. She was instructed on picking up her medications from the pharmacy and to follow up with her GI doctor. Emphasized the importance of medication compliance for colitis. All information was given to her and she expressed understanding.
== END 2020-08-27 15:05 | disposition home or self-care (01) | DRG 391 ==
LOC: ER 08:31 → MEDSURG3 13:58 → TELE3 13:59 → MEDSURG3 17:10
PROVIDERS: ADMIT Internal Medicine; ATTEND Registered Nurse
DX: A08.4 Viral intestinal infection, unspecified (principal); E43 Unspecified severe protein-calorie malnutrition; N39.0 Urinary tract infection, site not specified; I50.32 Chronic diastolic (congestive) heart failure; Z68.21 Body mass index [BMI] 21.0-21.9, adult; E88.09 Other disorders of plasma-protein metabolism, not elsewhere classified; F32.9 Major depressive disorder, single episode, unspecified; F41.9 Anxiety disorder, unspecified; I11.0 Hypertensive heart disease with heart failure; E78.5 Hyperlipidemia, unspecified; E03.9 Hypothyroidism, unspecified; Z86.73 Personal history of transient ischemic attack (TIA), and cerebral infarction without residual deficits; Z20.822 Contact with and (suspected) exposure to COVID-19; M19.90 Unspecified osteoarthritis, unspecified site
CPT/HCPCS: 36415; 70030-TC; 71045; 83690; 83735; 84100; 85025; 87086; 93005; A4663; C9113; G0378; J0696; J2060; J2270; J2405; J2765; J7030; J7060

== ENCOUNTER 2020-09-01 10:20 | Emergency (ER) | payer MEDICARE, OTHER ==
[~2020-09-01] VITALS: Ht 160 cm; Wt 59.0 kg
[~2020-09-01 10:20] MED LIST changes: +AMLO2.5T4 PO; +APIX5TAB PO; -APIX5TAB4 PO; +CEPH500C2 PO; +LORA-258 PO; +METO-295 PO; +METO25TA6 PO; +PANT40TA49 PO; +VENL75CA62 PO
--- NOTE | 2020-09-01 10:34 | NUR ---
Dr Garay at the bedside for MSE.
[2020-09-01] MEDS ORDERED: IV NORMAL SALINE 1000 ML BAG IV ONE (10:45)
[2020-09-01] MEDS ORDERED: HYDROMORPHONE 1 MG/1 ML DISP.SYRIN IV ONE (10:45)
[2020-09-01] MEDS ORDERED: ONDANSETRON 4 MG/2 ML VIAL IV ONE ×2 (10:45→11:15)
[2020-09-01] MEDS ORDERED: HYDROMORPHONE 1 MG/1 ML DISP.SYRIN ONE (10:57)
[2020-09-01] MEDS ORDERED: ONDANSETRON 4 MG/2 ML VIAL ONE ×2 (10:57→11:20)
[2020-09-01 10:58] LABS: HEMATOCRIT 47.2 % (31.2-41.9); MEAN CORPUSCULAR HEMOGLOBIN 28.2 uug (24.7-32.8); MEAN CORPUSCULAR VOLUME 86.6 fL (75.5-95.3); PLATELET COUNT (AUTO) 261 K/uL (179-408)
--- NOTE | 2020-09-01 11:03 | NUR ---
Pt out of ER for CT.
[2020-09-01 11:06] LABS: CREATININE 0.7 mg/dL (0.6-1.3); POTASSIUM 3.9 mmol/L (3.5-5.1)
--- NOTE | 2020-09-01 11:09 | NUR ---
Pt back from Ct, c/o nausea. made aware, orders received.
[2020-09-01 11:10] LABS: BILIRUBIN,DIRECT 0.1 mg/dL (0.0-0.2); BILIRUBIN,TOTAL 0.6 mg/dL (0.2-1.0); TOTAL PROTEIN, SERUM 7.2 g/dL (6.4-8.2)
[2020-09-01] MEDS ORDERED: HYDR-3980 PO (11:53)
[2020-09-01] MEDS ORDERED: ONDA4TAB5 PO (11:53)
--- NOTE | 2020-09-01 12:07 | NUR ---
IV removed. Catheter intact and site benign. Pressure and 4x4 gauze applied to site. No bleeding noted.
[2020-09-01 12:08] VITALS: BP 142/78
--- NOTE | 2020-09-01 12:09 | NUR ---
Patient discharged to home in stable condition. Written and verbal after care instructions given. Patient verbalizes understanding of instructions. Stressed follow up or return to ER for worsening s/s.
== END 2020-09-01 12:10 | disposition home or self-care (01) ==
LOC: ER 10:20
DX: R10.13 Epigastric pain (principal); R11.2 Nausea with vomiting, unspecified; I11.0 Hypertensive heart disease with heart failure; Z79.899 Other long term (current) drug therapy; E78.5 Hyperlipidemia, unspecified; I50.30 Unspecified diastolic (congestive) heart failure; M19.90 Unspecified osteoarthritis, unspecified site; E03.9 Hypothyroidism, unspecified; Z90.49 Acquired absence of other specified parts of digestive tract; Z79.01 Long term (current) use of anticoagulants
CPT/HCPCS: 36415; 71045; 74176; 80048; 80076; 83690; 84484; 85025; 93005; 96361; 96374; 96375; 99285; J1170; J2405 ×2; 70030-TC; A4663; J7030

== ENCOUNTER 2020-09-03 08:59 | Emergency (ER) | payer OTHER ==
[~2020-09-03] VITALS: Ht 162.6 cm; Wt 59.0 kg
[~2020-09-03 08:59] MED LIST changes: +HYDR-3980 PO; +ONDA4TAB5 PO
--- NOTE | 2020-09-03 09:05 | NUR ---
Dr Rangel at the bedside for MSE.
[2020-09-03] MEDS ORDERED: FAMOTIDINE. 20 MG/2 ML VIAL IV ONE ×2 (09:15→09:26)
[2020-09-03] MEDS ORDERED: MAG HYDROX/AL HYDROX/SIMETH 30 ML LIQUID UDC PO ONE (09:15)
[2020-09-03] MEDS ORDERED: LIDOCAINE VISCUS 2% 15 ML UDC MM ONE (09:15)
[2020-09-03] MEDS ORDERED: LORAZEPAM 0.5 MG TABLET PO ONE (09:15)
[2020-09-03] MEDS ORDERED: ONDANSETRON 4 MG/2 ML VIAL IV ONE (09:15)
[2020-09-03 09:23] LABS: HEMATOCRIT 46.5 % (31.2-41.9); MEAN CORPUSCULAR HEMOGLOBIN 28.7 uug (24.7-32.8); MEAN CORPUSCULAR VOLUME 87.9 fL (75.5-95.3); PLATELET COUNT (AUTO) 254 K/uL (179-408)
[2020-09-03] MEDS ORDERED: ONDANSETRON 4 MG/2 ML VIAL ONE (09:26)
[2020-09-03] MEDS ORDERED: MAG HYDROX/AL HYDROX/SIMETH 30 ML LIQUID UDC ONE (09:26)
[2020-09-03] MEDS ORDERED: LIDOCAINE VISCUS 2% 15 ML UDC ONE (09:26)
[2020-09-03] MEDS ORDERED: LORAZEPAM 0.5 MG TABLET ONE (09:26)
[2020-09-03] MEDS ORDERED: DICYCLOMINE HCL 20 MG/2 ML AMPUL IM STA (09:27)
[2020-09-03 09:38] LABS: BILIRUBIN,DIRECT 0.2 mg/dL (0.0-0.2); BILIRUBIN,TOTAL 0.7 mg/dL (0.2-1.0); CREATININE 0.9 mg/dL (0.6-1.3); POTASSIUM 3.9 mmol/L (3.5-5.1); TOTAL PROTEIN, SERUM 7.3 g/dL (6.4-8.2)
--- NOTE | 2020-09-03 09:47 | NUR ---
Pt able to tolorate fluids w/o vomitting.
[2020-09-03] MEDS ORDERED: DICY10CA13 PO (09:48)
[2020-09-03] MEDS ORDERED: FAMO-132 PO (09:48)
[2020-09-03] MEDS ORDERED: ONDA4TAB5 PO (09:48)
--- NOTE | 2020-09-03 10:09 | NUR ---
Pt offered to have in/out cath for urine, pt refused. Pt states not feeling to urinate, unable to send urine.
[2020-09-03 10:11] VITALS: BP 132/67
--- NOTE | 2020-09-03 10:12 | NUR ---
IV removed. Catheter intact and site benign. Pressure and 4x4 gauze applied to site. No bleeding noted.
== END 2020-09-03 10:12 | disposition home or self-care (01) ==
LOC: ER 08:59
DX: F41.1 Generalized anxiety disorder (principal); R10.13 Epigastric pain; R11.2 Nausea with vomiting, unspecified; I72.8 Aneurysm of other specified arteries; K76.89 Other specified diseases of liver; I11.0 Hypertensive heart disease with heart failure; I50.30 Unspecified diastolic (congestive) heart failure; E03.9 Hypothyroidism, unspecified; Z90.49 Acquired absence of other specified parts of digestive tract; Z98.82 Breast implant status; Z86.711 Personal history of pulmonary embolism; Z79.01 Long term (current) use of anticoagulants; N20.0 Calculus of kidney
CPT/HCPCS: 71045; 80048; 80076; 83690; 85025; 93005; 96372; 96374; 96375; 99285; J0500; J2405; J3490; A4663

== ENCOUNTER 2020-09-13 08:31 | Emergency (ER) | payer OTHER ==
[~2020-09-13] VITALS: Ht 162.6 cm; Wt 52.2 kg
[~2020-09-13 08:31] MED LIST changes: +DICY10CA13 PO; +FAMO-132 PO
--- NOTE | 2020-09-13 08:55 | NUR ---
at bedside for assessment
[2020-09-13] MEDS ORDERED: ONDANSETRON 4 MG/2 ML VIAL IV ONE (09:00)
[2020-09-13] MEDS ORDERED: HYDROMORPHONE 1 MG/1 ML DISP.SYRIN IV ONE (09:00)
[2020-09-13] MEDS ORDERED: IV NORMAL SALINE 1000 ML BAG IV ONE (09:00)
[2020-09-13] MEDS ORDERED: ONDANSETRON 4 MG/2 ML VIAL ONE (09:09)
[2020-09-13] MEDS ORDERED: HYDROMORPHONE 1 MG/1 ML DISP.SYRIN ONE (09:09)
--- NOTE | 2020-09-13 09:33 | NUR ---
Patient going down for CT at this time
--- NOTE | 2020-09-13 09:40 | NUR ---
Patient refused to have chest x-ray and CT done
[2020-09-13] MEDS ORDERED: LORAZEPAM 2 MG/1 ML VIAL IV ONE (10:00)
[2020-09-13] MEDS ORDERED: LORAZEPAM 2 MG/1 ML VIAL ONE (10:07)
[2020-09-13 10:18] LABS: HEMATOCRIT 45.3 % (31.2-41.9); MEAN CORPUSCULAR HEMOGLOBIN 28.7 uug (24.7-32.8); MEAN CORPUSCULAR VOLUME 88.3 fL (75.5-95.3); PLATELET COUNT (AUTO) 291 K/uL (179-408)
[2020-09-13 10:27] LABS: CREATININE 0.7 mg/dL (0.6-1.3); POTASSIUM 3.9 mmol/L (3.5-5.1)
[2020-09-13 10:33] LABS: BILIRUBIN,DIRECT 0.1 mg/dL (0.0-0.2); BILIRUBIN,TOTAL 0.6 mg/dL (0.2-1.0)
--- NOTE | 2020-09-13 12:08 | NUR ---
Patient discharged to home in stable condition. patietnt left with caregiver, no signs of acute distress Written and verbal after care instructions given. Took all belongings. Patient verbalizes understanding of instructions. Stressed follow up or return to ER for worsening s/s.
[2020-09-13 12:16] VITALS: BP 120/84
== END 2020-09-13 12:00 | disposition home or self-care (01) ==
LOC: ER 08:31
DX: F41.9 Anxiety disorder, unspecified (principal); R94.31 Abnormal electrocardiogram [ECG] [EKG]; M19.90 Unspecified osteoarthritis, unspecified site; Z86.711 Personal history of pulmonary embolism; Z79.01 Long term (current) use of anticoagulants; E78.5 Hyperlipidemia, unspecified; I11.0 Hypertensive heart disease with heart failure; I50.30 Unspecified diastolic (congestive) heart failure; F32.9 Major depressive disorder, single episode, unspecified; E03.9 Hypothyroidism, unspecified; Z98.82 Breast implant status
CPT/HCPCS: 36415; 80048; 80076; 83690; 83880; 84484; 85025; 93005; 96361; 96374; 96375; 99285; J1170; J2060; J2405; 70030-TC; A4663; J7030

== ENCOUNTER 2020-10-13 14:09 | Emergency (ER) | payer OTHER ==
[~2020-10-13] VITALS: Ht 162.6 cm; Wt 56.7 kg
--- NOTE | 2020-10-13 14:50 | NUR ---
Pt refused saline lock at this time. Caregiver at bedside. Pt to ct via jorge pelayo noted.
[2020-10-13 15:03] LABS: *BLOOD, URINE NEGATIVE (NEGATIVE); *COLOR,URINE YELLOW (YELLOW); *KETONES,URINE TRACE (NEGATIVE); *UROBILINOGEN,URINE 0.2 E.U./dl (NORMAL); LEUKOCYTE ESTERASE ,URINE 1+ (NEGATIVE); NITRITE, URINE NEGATIVE (NEGATIVE); UGLUCOSE NEGATIVE (NEGATIVE)
[2020-10-13 15:13] LABS: *BILIRUBIN,URIN 1+ (NEGATIVE)
[2020-10-13 15:15] LABS: *CLARITY,URINE HAZY (CLEAR); BACTERIA,URINE FEW /HPF (NONE SEEN); CALCIUM OXALATE CRYSTALS,UR RARE /HPF (NONE SEEN); RBC,URINE 0-3 /HPF (0-3); SQUAMOUS EPITHELIAL CELL,UR FEW /HPF (NONE SEEN)
[2020-10-13] MEDS ORDERED: IV NS 1000 ML 1,000 ML IV ONE (16:00)
[2020-10-13 16:42] LABS: HEMATOCRIT 48.7 % (31.2-41.9); MEAN CORPUSCULAR HEMOGLOBIN 28.6 uug (24.7-32.8); MEAN CORPUSCULAR VOLUME 88.9 fL (75.5-95.3); PLATELET COUNT (AUTO) 259 K/uL (179-408)
[2020-10-13 16:47] LABS: CARBON DIOXIDE 26 mmol/L (21-32); CHLORIDE 103 mmol/L (98-107); CREATININE 0.9 mg/dL (0.6-1.3); GLUCOSE 99 mg/dL (74-106); POTASSIUM 3.9 mmol/L (3.5-5.1); UREA NITROGEN, BLOOD 7 mg/dL (7-18)
[2020-10-13 16:52] LABS: ALANINE AMINOTRANSFERASE 23 U/L (14-59); ALKALINE PHOSPHATASE 99 U/L (50-136); ASPARTATE AMINOTRANSFERASE 25 U/L (15-37); BILIRUBIN,DIRECT 0.1 mg/dL (0.0-0.2); BILIRUBIN,TOTAL 0.7 mg/dL (0.2-1.0); LIPASE 104 U/L (73-393); TOTAL PROTEIN, SERUM 7.4 g/dL (6.4-8.2)
[2020-10-13] MEDS ORDERED: NITR100C11 PO (17:16)
--- NOTE | 2020-10-13 17:37 | NUR ---
Patient discharged to home in stable condition with caregiver. Written and verbal after care instructions given. Patient verbalized understanding of instructions. Stressed follow up or return to ER for worsening s/s.
== END 2020-10-13 17:56 | disposition home or self-care (01) ==
LOC: ER 14:10
DX: N39.0 Urinary tract infection, site not specified (principal); R19.7 Diarrhea, unspecified; R10.9 Unspecified abdominal pain; N20.0 Calculus of kidney; D25.9 Leiomyoma of uterus, unspecified; K57.30 Diverticulosis of large intestine without perforation or abscess without bleeding; E03.9 Hypothyroidism, unspecified; E78.5 Hyperlipidemia, unspecified; F41.8 Other specified anxiety disorders; D68.59 Other primary thrombophilia; I11.0 Hypertensive heart disease with heart failure; I50.30 Unspecified diastolic (congestive) heart failure
CPT/HCPCS: 36415; 70030-TC; 83605; 83690; 85025; 87086; 93005; A4663; J7030

== ENCOUNTER 2020-10-21 12:40 | Emergency (ER) | payer OTHER ==
[~2020-10-21] VITALS: Ht 162.6 cm; Wt 56.2 kg
[~2020-10-21 12:40] MED LIST changes: +NITR100C11 PO
--- NOTE | 2020-10-21 13:15 | NUR ---
Dr Ramos at the bedside for MSE.
[2020-10-21] MEDS ORDERED: HALOPERIDOL LACTATE 5 MG/1 ML VIAL IV ONE (13:30)
[2020-10-21] MEDS ORDERED: HALOPERIDOL LACTATE 5 MG/1 ML VIAL ONE (13:45)
[2020-10-21 13:47] LABS: HEMATOCRIT 45.5 % (31.2-41.9); MEAN CORPUSCULAR HEMOGLOBIN 28.7 uug (24.7-32.8); MEAN CORPUSCULAR VOLUME 87.3 fL (75.5-95.3); PLATELET COUNT (AUTO) 195 K/uL (179-408)
[2020-10-21 13:54] LABS: CREATININE 0.8 mg/dL (0.6-1.3); POTASSIUM 3.3 mmol/L (3.5-5.1)
[2020-10-21 13:59] LABS: BILIRUBIN,TOTAL 0.9 mg/dL (0.2-1.0); TOTAL PROTEIN, SERUM 7.1 g/dL (6.4-8.2)
--- NOTE | 2020-10-21 14:20 | NUR ---
IV removed. Catheter intact and site benign. Pressure and 4x4 gauze applied to site. No bleeding noted.
[2020-10-21] MEDS ORDERED: IOHEXOL 300MG/ML 100 ML INFUS..BTL ONE (14:28)
[2020-10-21] MEDS ORDERED: SWABABLE VALVE TRANSFER SET EA MC ONE (14:28)
[2020-10-21] MEDS ORDERED: IV NORMAL SALINE 250 ML IV ONE (14:28)
--- NOTE | 2020-10-21 14:29 | NUR ---
Patient does not wish to proceed with medical care recommended by Dr. Candelario). Patient given information related to possible complications, up to and including , which could occur as a result of leaving the hospital at this time. Patient verbalizes understanding of risks involved due to leaving against medical advice. Patient has signed AMA form.
[2020-10-21 14:30] VITALS: BP 155/60
== END 2020-10-21 14:31 | disposition left against medical advice (07) ==
LOC: ER 12:40
DX: R10.9 Unspecified abdominal pain (principal); E78.5 Hyperlipidemia, unspecified; E03.9 Hypothyroidism, unspecified; F41.9 Anxiety disorder, unspecified; I11.0 Hypertensive heart disease with heart failure; I50.9 Heart failure, unspecified; M19.90 Unspecified osteoarthritis, unspecified site; Z79.899 Other long term (current) drug therapy; Z79.01 Long term (current) use of anticoagulants; Z53.29 Procedure and treatment not carried out because of patient's decision for other reasons
CPT/HCPCS: 80053; 85025; 96374; 99284; J1630; A4663; J7050; Q9967

== ENCOUNTER 2021-05-24 18:01 | Emergency (ER) | payer OTHER ==
[~2021-05-24] VITALS: Ht 162.6 cm; Wt 62.1 kg
[2021-05-24] MEDS ORDERED: HYDROMORPHONE 1 MG/1 ML DISP.SYRIN IV ONE (18:45)
[2021-05-24] MEDS ORDERED: ONDANSETRON 4 MG/2 ML VIAL IV ONE (18:45)
[2021-05-24] MEDS ORDERED: HYDROMORPHONE 1 MG/1 ML DISP.SYRIN ONE (18:53)
[2021-05-24] MEDS ORDERED: ONDANSETRON 4 MG/2 ML VIAL ONE (18:54)
--- NOTE | 2021-05-24 19:18 | NUR ---
Report received from Abbe joshi.
--- NOTE | 2021-05-24 19:22 | NUR ---
Pt out of ER for CT.
--- NOTE | 2021-05-24 20:07 | NUR ---
Pt back to ER from CT.
[2021-05-24 20:36] LABS: *BILIRUBIN,URIN NEGATIVE (NEGATIVE); *BLOOD, URINE 2+ (NEGATIVE); *COLOR,URINE YELLOW (YELLOW); *KETONES,URINE NEGATIVE (NEGATIVE); *UROBILINOGEN,URINE 0.2 E.U./dl (NORMAL); LEUKOCYTE ESTERASE ,URINE 3+ (NEGATIVE); NITRITE, URINE POSITIVE (NEGATIVE); UGLUCOSE NEGATIVE (NEGATIVE)
[2021-05-24 20:39] LABS: *CLARITY,URINE HAZY (CLEAR)
[2021-05-24] MEDS ORDERED: OXYC-128 PO (20:42)
[2021-05-24 20:49] LABS: BACTERIA,URINE MANY /HPF (NONE SEEN); SQUAMOUS EPITHELIAL CELL,UR MODERATE /HPF (NONE SEEN); WBC,URINE 50-80 /HPF (0-3)
[2021-05-24] MEDS ORDERED: SULF1TAB48 PO (20:55)
[2021-05-24] MEDS ORDERED: SULFAMETH/TRIMETH 800/160 MG TABLET PO ONE (21:00)
[2021-05-24] MEDS ORDERED: SULFAMETH/TRIMETH 800/160 MG TABLET ONE (21:07)
[2021-05-24] MEDS ORDERED: OXYCODONE/APAP 5-325 MG TABLET PO ONE (22:30)
[2021-05-24] MEDS ORDERED: OXYCODONE/APAP 5-325 MG TABLET ONE (22:36)
--- NOTE | 2021-05-24 23:16 | NUR ---
[facility] ambulance arrived to ER to transport patient back to home, report and documentation given to EMT. Patient out of ER via gurney, VSS, no acute signs of distress, all belongings taken, IV site discontinued.
[2021-05-24 23:17] VITALS: BP 145/70
== END 2021-05-24 23:17 | disposition home or self-care (01) ==
LOC: ER 18:11
DX: S01.111A Laceration without foreign body of right eyelid and periocular area, initial encounter (principal); S81.811A Laceration without foreign body, right lower leg, initial encounter; W01.0XXA Fall on same level from slipping, tripping and stumbling without subsequent striking against object, initial encounter; Y92.019 Unspecified place in single-family (private) house as the place of occurrence of the external cause; S00.83XA Contusion of other part of head, initial encounter; N39.0 Urinary tract infection, site not specified; Z86.73 Personal history of transient ischemic attack (TIA), and cerebral infarction without residual deficits; E03.9 Hypothyroidism, unspecified; E78.5 Hyperlipidemia, unspecified; I11.0 Hypertensive heart disease with heart failure; I50.30 Unspecified diastolic (congestive) heart failure; Z79.01 Long term (current) use of anticoagulants; Z79.899 Other long term (current) drug therapy; F41.9 Anxiety disorder, unspecified; F32.A Depression, unspecified; Z86.711 Personal history of pulmonary embolism
CPT/HCPCS: 70450; 70486; 81001; 87077; 87086; 87186; 96374; 96375; 99285; G0168; J1170; J2405; A4663; J7030

== ENCOUNTER 2021-06-20 07:50 | Emergency (ER) | payer OTHER ==
[~2021-06-20] VITALS: Ht 162.6 cm; Wt 63.5 kg
[~2021-06-20 07:50] MED LIST changes: +OXYC-128 PO; +SULF1TAB48 PO
[2021-06-20] MEDS ORDERED: SULF500T8 PO (08:06)
--- NOTE | 2021-06-20 08:10 | NUR ---
Patient ambulatory, accompanied by caregiver with complaints of sharp abdominal pain 5/10, sharp right groin pain, nausea/vomiting, diarrhea for 3 days. Vitals stable. Denies SOB, chest pain. History of colitis, hypertension and GERD.
--- NOTE | 2021-06-20 08:13 | NUR ---
MD at bedside, medical screening exam in process.
[2021-06-20] MEDS ORDERED: IV NORMAL SALINE 1000 ML BAG IV ONE (08:15)
[2021-06-20 08:56] LABS: HEMATOCRIT 44.7 % (31.2-41.9); MEAN CORPUSCULAR HEMOGLOBIN 28.5 uug (24.7-32.8); PLATELET COUNT (AUTO) 198 K/uL (179-408)
[2021-06-20 09:16] LABS: ALANINE AMINOTRANSFERASE 17 U/L (14-59); ALKALINE PHOSPHATASE 79 U/L (50-136); ASPARTATE AMINOTRANSFERASE 13 U/L (15-37); BILIRUBIN,DIRECT 0.1 mg/dL (0.0-0.2); BILIRUBIN,TOTAL 0.5 mg/dL (0.2-1.0); CARBON DIOXIDE 30 mmol/L (21-32); CHLORIDE 101 mmol/L (98-107); CREATININE 1.3 mg/dL (0.6-1.3); GLUCOSE 109 mg/dL (74-106); TOTAL PROTEIN, SERUM 7.1 g/dL (6.4-8.2); UREA NITROGEN, BLOOD 12 mg/dL (7-18)
[2021-06-20 09:17] LABS: POTASSIUM 2.7 mmol/L (3.5-5.1)
[2021-06-20] MEDS ORDERED: IOHEXOL 300MG/ML 100 ML INFUS..BTL ONE (09:19)
[2021-06-20] MEDS ORDERED: SWABABLE VALVE TRANSFER SET EA MC ONE (09:19)
[2021-06-20] MEDS ORDERED: IV NORMAL SALINE 250 ML IV ONE (09:19)
[2021-06-20] MEDS ORDERED: MORPHINE SULFATE 4 MG/1 ML DISP.SYRIN ONE ×2 (09:19→14:40)
[2021-06-20] MEDS ORDERED: METOCLOPRAMIDE HCL 10 MG/2 ML VIAL ONE ×2 (09:19→11:29)
[2021-06-20] MEDS ORDERED: POTASSIUM CHLORIDE 20 MEQ POWDER PACKET ONE (09:33)
[2021-06-20] MEDS ORDERED: ARIP15TA3 PO (09:57)
[2021-06-20] MEDS ORDERED: POTA10CA43 PO (09:57)
[2021-06-20] MEDS ORDERED: HYDR25TA4 PO (09:57)
[2021-06-20] MEDS ORDERED: DIPH1TAB PO (09:57)
[2021-06-20] MEDS ORDERED: METOCLOPRAMIDE HCL 10 MG/2 ML VIAL IV ONE ×2 (10:15→11:30)
[2021-06-20] MEDS ORDERED: diphenhydrAMINE 50 MG/1 ML VIAL IV ONE ×2 (10:15→11:45)
[2021-06-20] MEDS ORDERED: MORPHINE SULFATE 4 MG/1 ML DISP.SYRIN IV ONE ×2 (10:15→14:45)
[2021-06-20] MEDS ORDERED: POTASSIUM CHLORIDE 20 MEQ TAB.PRT.SR PO ONE (10:15)
[2021-06-20] MEDS ORDERED: diphenhydrAMINE 50 MG/1 ML VIAL ONE ×2 (10:23→11:42)
[2021-06-20] MEDS ORDERED: POTASSIUM CHLORIDE 50 ML ONE ×2 (10:24→11:43)
[2021-06-20] MEDS: POTASSIUM CHLORIDE 50 ML IV SCH ×2 (10:43→11:48)
--- NOTE | 2021-06-20 10:44 | NUR ---
UA sent to lab
[2021-06-20 10:46] LABS: *BILIRUBIN,URIN NEGATIVE (NEGATIVE); *CLARITY,URINE SLIGHTLY CLOUDY (CLEAR); *COLOR,URINE YELLOW (YELLOW); *KETONES,URINE TRACE (NEGATIVE); *UROBILINOGEN,URINE 0.2 E.U./dl (NORMAL); LEUKOCYTE ESTERASE ,URINE 1+ (NEGATIVE); NITRITE, URINE POSITIVE (NEGATIVE); PH,URINE 5.5 (5.0-8.0); UGLUCOSE NEGATIVE (NEGATIVE)
[2021-06-20 10:49] LABS: *BLOOD, URINE TRACE (NEGATIVE)
--- NOTE | 2021-06-20 12:11 | NUR ---
Spoke with Sparkle case monitor, patient summary report was discussed over the phone. No report was given for which hospital the pt will be transferred. Sparkle said she will call back for info.
[2021-06-20 12:48] LABS: BACTERIA,URINE MANY /HPF (NONE SEEN); SQUAMOUS EPITHELIAL CELL,UR FEW /HPF (NONE SEEN)
--- NOTE | 2021-06-20 13:45 | NUR ---
Patient will be transferred in [facility], spoke with rn case manager hospice Мария and discussed patients summary report via phone.
--- NOTE | 2021-06-20 14:19 | NUR ---
Called nurse gwen from [facility] to give a report but she said to call me back.
--- NOTE | 2021-06-20 14:21 | NUR ---
Patient will be in room 503, accepting MD PENALOZA.
[2021-06-20] MEDS ORDERED: ONDANSETRON 4 MG/2 ML VIAL ONE (14:40)
[2021-06-20] MEDS ORDERED: ONDANSETRON 4 MG/2 ML VIAL IV ONE (14:45)
--- NOTE | 2021-06-20 15:29 | NUR ---
Per [place] case folder [facility] pt will be picked up by [facility] ambulance for transfer to [facility], eta 1830.
--- NOTE | 2021-06-20 16:43 | NUR ---
Called Nurse Genny again to give a report said that " I will call you back". 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
--- NOTE | 2021-06-20 16:59 | NUR ---
Report given to Nurse hidalgo.
--- NOTE | 2021-06-20 18:50 | NUR ---
Patient transferred to [facility] via stretcher BLS ambulance. Recent vitals of BP-111/80 MA-80 RR-18 T-98.2 SPO2-98% RA PA1/10.
--- NOTE | 2021-06-20 18:54 | NUR ---
Patient received 2 50ml of potassium chloride IV, 10 meq each for 2 hours per MD hold following dose.
== END 2021-06-20 18:50 | disposition short-term general hospital (02) ==
LOC: ER 07:53
DX: K51.00 Ulcerative (chronic) pancolitis without complications (principal); E86.0 Dehydration; E87.6 Hypokalemia; E03.9 Hypothyroidism, unspecified; F41.9 Anxiety disorder, unspecified; Z20.822 Contact with and (suspected) exposure to COVID-19; I70.0 Atherosclerosis of aorta; Z79.01 Long term (current) use of anticoagulants; E78.5 Hyperlipidemia, unspecified; I11.0 Hypertensive heart disease with heart failure; I50.30 Unspecified diastolic (congestive) heart failure; Z79.899 Other long term (current) drug therapy; F32.A Depression, unspecified; Z86.711 Personal history of pulmonary embolism; Z90.49 Acquired absence of other specified parts of digestive tract
CPT/HCPCS: 36415; 71045; 74177; 80048; 80076; 81001; 83605; 83690; 83880; 84145; 84484; 85025; 85730; 87040 ×2; 87086; 87426; 93005; 96361; 96365; 96366; 96375; 96376; 99285; J1200 ×2; J2270 ×2; J2405; J2765 ×2; J3480 ×2; J7040; Q9967; A4663